=== PATIENT | male | born 1970 | race Caucasian/White ===

== ENCOUNTER 2020-06-11 14:24 | Emergency (ER) | payer OTHER, SELFPAY ==
[2020-06-11 14:36] VITALS: BP 137/80; PULSE 72; RESP 15; TEMP 36.1; O2SAT 97; BMI 31.8
--- NOTE | 2020-06-11 14:37 | US_ITS ---
EXAMINATION: US SCROTUM CLINICAL INFORMATION: Left testicle pain and swelling. Evaluate for torsion.. COMPARISON: Previous scrotal ultrasound July 2014 TECHNIQUE: A sonogram of the scrotum was performed assessing beltrán-scale appearance and color Doppler flow. Spectral Doppler analysis of the arterial and venous flow were performed in the testes bilaterally. FINDINGS: RIGHT: Right testicle measures 5 x 2.3 x 3.1 cm, volume 19 mL. No focal testicular parenchymal lesions are visualized. Spectral Doppler analysis of the arterial and venous flow is normal in the right testis. Right epididymal head is normal in size. No right hydrocele or varicocele is seen. Right epididymal Doppler flow is LEFT: Left testicle measures 3.8 x 2.3 x 2.9 cm, volume 13 mL. Left testicle echotexture is diffusely heterogeneous with multiple small hypoechoic areas. Spectral Doppler analysis of the arterial and venous flow is normal in the left testis. The left epididymis is enlarged and hypervascular. There are some calcifications in the left epididymis. There is a small left hydrocele. There is no left varicocele. There is a small left scrotal calcification. Left epididymal Doppler flow is increased. US/US scrotum doppler IMPRESSION: No evidence of torsion. Small heterogeneous left testicle with multiple hypoechoic areas. The left epididymis is enlarged and hypervascular. Small left hydrocele. Findings are questionable for left epididymoorchitis. Urology consultation and follow-up scrotal ultrasound following antibiotic treatment is recommended. Abnormal appearance of the left testicle is new from July 2014 exam. Normal right scrotal ultrasound.
--- NOTE | 2020-06-11 14:40 | ED.MALEGU ---
HPI - Male Genitourinary General Chief complaint: Urogenital-Male Stated complaint: low abd pain Time Seen by Provider: 06/11/20 14:33 Source: patient Mode of arrival: ambulatory Limitations: no limitations History of Present Illness HPI Narrative: 50-year-old male with a past medical history of hypertension, coronary artery disease, epididymitis here from urgent care with left testicular pain and swelling. The patient tells me last evening he noticed some pain in his left testicle with swelling. There is no injury or trauma. He also tells me that he has had some dysuria and frequency. He has a history of epididymitis and feels that this is similar. He tells me 1 month ago he was treated for UTI but continued to have symptoms even after finishing his antibiotics. No penile discharge. Sexually active. No fevers, chills, nausea, vomiting, diarrhea. MD Complaint: testicle pain, testicle swelling and dysuria Onset (ago): hour(s) Duration: constant Location: left testicle Severity: mild Quality: aching Relieving factors: none Exacerbating factors: none Associated symptoms: Reports swelling and dysuria Related Data Previous Rx's Medication Instructions Recorded levofloxacin 750 mg PO DAILY 7 Days #7 tab 06/11/20 Allergies Allergy/AdvReac Type Severity Reaction Status Date / Time lisinopril [LISINOPRIL] Allergy Severe TONGUE Unverified 03/28/20 17:48 SWELLING hydrochlorothiazide Allergy Unknown Verified 02/05/20 00:00 Review of Systems Review of Systems: Yes all other systems are reviewed and are negative Constitutional: Constitutional: Reports no additional constitutional complaints, Denies body ache(s), Denies chills, Denies fever(s), Denies headache(s) and Denies weakness Eyes: Eyes: Reports no additional eye complaints and Denies change in vision ENT: Reports system reviewed and no additional complaints, except as documented, Denies dizziness, Denies headache(s), Denies nasal congestion, Denies nasal discharge and Denies neck pain Cardiovascular: Cardiovascular: Reports no additional cardiovascular complaints, Denies chest pain, Denies leg edema and Denies dyspnea Respiratory: Respiratory: Reports no additional respiratory complaints, Denies cough and Denies dyspnea Gastrointestinal: Gastrointestinal: Reports no additional gastrointestinal complaints, Denies abdominal pain, Denies diarrhea, Denies nausea and Denies vomiting Genitourinary: Genitourinary: Reports dysuria, Reports testicular pain, Reports urinary frequency and Denies urinary incontinence Musculoskeletal: Musculoskeletal: Reports no additional musculoskeletal complaints, Denies back pain, Denies arthralgias, Denies joint swelling, Denies neck pain, Denies numbness and Denies tingling Integumentary/Breasts: Skin/Breast: Reports system reviewed and no additional complaints, except as docu and Denies rash Neurologic: Reports system reviewed and no additional complaints, except as documented, Denies Abnormal speech present, Denies dizziness, Denies headache(s), Denies numbness, Denies tingling and Denies weakness PMFSH Past Medical History Attestation statement: The following information was validated with the patient. Source: old records reviewed and nursing notes reviewed Medical History HTN (hypertension) Social History Social History Alcohol intake: never Smoking Status: Never smoker Use of substances other than those prescribed or required for medical reasons: No Advance Directives: No Advance Directives Information Provided: No Physical Exam Vital Signs: Vital Signs: Last Vital Signs Temp 97.9 F 06/11/20 16:07 Pulse 71 06/11/20 16:07 Resp 18 06/11/20 16:07 BP 138/90 H 06/11/20 16:07 Pulse Ox 97 06/11/20 14:36 Body Mass Index 31.8 Const: General: cooperative, healthy appearing, comfortable and no acute distress Orientation/consciousness: patient oriented x3 Limitations: no limitations HENMT: Head: Yes normal to inspection Ears: hearing grossly normal bilaterally General nose exam: Normal external nose present Face and sinus: Yes normal facial exam Mouth: Normal oral and palatal mucosa present Throat: Yes posterior oropharynx normal Eyes: General: appearance normal, both eyes and all related structures Pupils: Equal, round and reactive pupils present Neck: Neck: Yes normal visual inspection Chest: Chest palpation & inspection: normal inspection of the chest Resp: Effort & Inspection: normal respiratory effort Auscultation: clear to auscultation bilaterally Cardio: Rate: regular rate Rhythm: regular rhythm Peripheral pulses: Peripheral pulses 2+ throughout GI: Inspection: Yes normal to inspection Palpation (GI): Soft to palpation and nontender Auscultation: normal bowel sounds : Other: deferred by patient Back/Spine/Pelvis: Thoracic/Lumbar Spine: thoracic and lumbar spine normal to inspection Skin: General skin exam: no rashes or lesions noted Neuro: General: patient oriented x3, no focal motor deficits and normal sensation to monofilament Cranial nerves: Yes Equal, round and reactive pupils present Cognition (Neuro): normal cognition Speech: No Abnormal speech present Gait exam (Neuro): Normal gait present Motor exam (neuro): 5/5 motor strength present throughout Extrem: General: Yes normal to inspection Course Course Course Narrative: 50-year-old male here with left testicular pain and swelling and dysuria and urinary frequency. Plan for UA, gonorrhea and chlamydia testing, ultrasound here. 1715- patient refused exam. His ultrasound is consistent with epididymitis and orchitis. There is no evidence of testicular torsion. His UA is consistent with the UTI. GC testing was sent. Patient was treated prophylactically with ceftriaxone IM and azithromycin p.o.. Reviewed follow-up with Urology. Reviewed worrisome signs and symptoms and when to return to the emergency department. Comfortable discharge home. MDM - Male Genitourinary MDM Narrative Medical decision making narrative: epididymitis, testicular torsion, UTI Medical Records Attestation: I reviewed the patient's medical records. Lab Data Attestation: I reviewed the patient's lab results. Labs: Lab Results 06/11/20 Range/Units 15:59 Urine Color YELLOW Urine Appearance CLOUDY Urine pH 6.0 (5.0-8.0) Ur Specific [place] >= 1.030 H (1.005-1.025) Urine Protein NEG (NEG-TRACE) MG/DL Urine Glucose (UA) NEG (NEG) MG/DL Urine Ketones NEG (NEG) MG/DL Urine Blood 1+ H (NEG) Urine Nitrite POS H (NEG) Ur Leukocyte Esterase 2+ H (NEG) Urine RBC 1-4 (0) /HPF Urine WBC TNTC H (0-4) /HPF Ur Squamous Epith Cells TRACE /LPF Urine Bacteria 3+ /LPF Discharge Plan Discharge Clinical Impression: Epididymitis Patient Disposition: Home, Self-Care Instructions: Epididymo-Orchitis (ED) Additional Instructions: Start antibiotics today Elevate the testicles Follow-up with Urology we will call you if your STD testing is positive Prescriptions: New levofloxacin 750 mg tablet 750 mg PO DAILY 7 Days Qty: 7 RF: 0 Referrals: Cb Thayer MD [Physician] - 2 days Interventions: ED Discharge Assessment Last Done: 06/11/20 17:03 Discharge Date/Time: 06/11/20 17:06
[2020-06-11 16:07] VITALS: BP 138/90; PULSE 71; RESP 18; TEMP 36.6
--- NOTE | 2020-06-11 16:10 | PC.NURSE ---
patient a&ox3, urine obtained, vss, pt awaiting results of testing, pt states his pain is a 1/10 as long as he is sitting still, will continue to monitor.
[2020-06-11 16:11] LABS: Glucose Urine UA NEG (NEG); Leukocyte Esterase Urine 2+ (NEG); Nitrite Urine POS (NEG); Specific Gravity - Urine >= 1.030 (1.005-1.025); Urine Blood 1+ (NEG); Urine Ketones NEG (NEG); Urine Protein NEG (NEG-TRACE)
[2020-06-11 16:15] LABS: Appearance Urine CLOUDY; Color Urine YELLOW
[2020-06-11 16:54] LABS: Bacteria Urine 3+ /LPF; Squamous Epithelial Cell Urine TRACE /LPF; WBC Urine TNTC /HPF (0-4)
[2020-06-11] MEDS: cefTRIAXone sodium 250 MG, Lidocaine HCl 1 % MPF 0.9 ML IM (17:01)
[2020-06-11] MEDS: Azithromycin 500 MG TABLET 1000 MG PO (17:01)
[2020-06-17 18:10] LABS: CT PCR NOT DETECTED (Not Detect.); NG PCR NOT DETECTED (Not Detect.)
== END 2020-06-11 17:06 | disposition home or self-care (01) ==
PROVIDERS: Nurse Practitioner Family; Emergency Provider Emergency Medicine; PCP Internal Medicine
DX: N45.1 Epididymitis (principal); I10 Essential (primary) hypertension
CPT/HCPCS: 76870; 81001; 87086; 87088; 87186; 87491; 87591; 93975; 96372; 99284; J0696

== ENCOUNTER → 2020-08-08 09:11 | Outpatient (BNVA) | payer OTHER, SELFPAY | PROVIDERS: PCP Internal Medicine; Visit Provider Urology ==

== ENCOUNTER 2021-02-13 10:25 | Outpatient (REF) | payer OTHER, SELFPAY ==
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
[2021-02-13 11:38] LABS: Glucose Urine UA NEG (NEG); Leukocyte Esterase Urine 2+ (NEG); Nitrite Urine NEG (NEG); PH 5.5 (5.0-8.0); Specific Gravity - Urine 1.025 (1.005-1.025); UACC Culture Trigger YES; Urine Blood TRACE (NEG); Urine Ketones NEG (NEG); Urine Protein NEG (NEG-TRACE)
[2021-02-13 11:58] LABS: Appearance Urine HAZY; Color Urine YELLOW
[2021-02-13 12:36] LABS: Bacteria Urine 2+ /LPF; Squamous Epithelial Cell Urine 1+ /LPF; UACC CULT YES; WBC Urine 50-75 /HPF (0-4)
[2021-02-13 13:27] LABS: Prostate Specific Antigen 1.31 ng/mL (<0.05-4.0)
[2021-02-14 08:10] LABS: SARS COV2 IgG Negative (Negative)
== END 2021-02-13 10:26 | disposition home or self-care (01) ==
LOC: HO.LAB 10:25
PROVIDERS: PCP Internal Medicine; Visit Provider Internal Medicine
DX: M19.041 Primary osteoarthritis, right hand (principal); M19.042 Primary osteoarthritis, left hand
CPT/HCPCS: 36415; 73130; 81001; 84153; 86769; 87086; 87088; 87186

== ENCOUNTER → 2021-03-21 15:10 | Outpatient (BNVA) | payer OTHER, SELFPAY | PROVIDERS: PCP Internal Medicine; Visit Provider Urology ==

== ENCOUNTER 2022-03-26 15:13 | Outpatient (REF) | payer OTHER, SELFPAY ==
--- NOTE | ~2022-03-26 | XR_ITS ---
EXAMINATION: XR KNEE, RIGHT CLINICAL INFORMATION: Pain. COMPARISON: None TECHNIQUE: AP, lateral, tunnel, and sunrise views of the right knee. FINDINGS: Bony alignment and mineralization are normal. There is mild to moderate asymmetric narrowing of the medial joint space compartment, with peripheral osteophyte formation. The lateral joint space compartment is well-maintained. The patellofemoral compartment is well-maintained and shows minimal peripheral osteophyte formation. No fracture or dislocation is seen. There is no significant joint effusion. No foreign body is noted. XR/XR knee RT 4V IMPRESSION: 1. There is tricompartment osteoarthritic change of the right knee, most pronounced of the medial joint space compartment, where it is mild to moderate. 2. No fracture, dislocation or significant joint effusion is seen. EXAMINATION: XR KNEE, LEFT CLINICAL INFORMATION: Pain. COMPARISON: None TECHNIQUE: AP, lateral, tunnel, and sunrise views of the left knee. FINDINGS: Bony alignment and mineralization are normal. There is mild asymmetric narrowing of the medial joint space compartment, with peripheral osteophyte formation. The lateral and patellofemoral joint space compartments are well-maintained. No fracture, dislocation or significant joint effusion is seen. There is no foreign body. There are femoropopliteal atherosclerotic calcifications. IMPRESSION: 1. There is mild osteoarthritic change of the medial joint space compartment of the left knee. 2. No fracture, dislocation or significant joint effusion is seen.
--- NOTE | ~2022-03-26 | XR_ITS ---
EXAMINATION: XR KNEE, RIGHT CLINICAL INFORMATION: Pain. COMPARISON: None TECHNIQUE: AP, lateral, tunnel, and sunrise views of the right knee. FINDINGS: Bony alignment and mineralization are normal. There is mild to moderate asymmetric narrowing of the medial joint space compartment, with peripheral osteophyte formation. The lateral joint space compartment is well-maintained. The patellofemoral compartment is well-maintained and shows minimal peripheral osteophyte formation. No fracture or dislocation is seen. There is no significant joint effusion. No foreign body is noted. XR/XR knee LT 4V IMPRESSION: 1. There is tricompartment osteoarthritic change of the right knee, most pronounced of the medial joint space compartment, where it is mild to moderate. 2. No fracture, dislocation or significant joint effusion is seen. EXAMINATION: XR KNEE, LEFT CLINICAL INFORMATION: Pain. COMPARISON: None TECHNIQUE: AP, lateral, tunnel, and sunrise views of the left knee. FINDINGS: Bony alignment and mineralization are normal. There is mild asymmetric narrowing of the medial joint space compartment, with peripheral osteophyte formation. The lateral and patellofemoral joint space compartments are well-maintained. No fracture, dislocation or significant joint effusion is seen. There is no foreign body. There are femoropopliteal atherosclerotic calcifications. IMPRESSION: 1. There is mild osteoarthritic change of the medial joint space compartment of the left knee. 2. No fracture, dislocation or significant joint effusion is seen.
[2022-03-26 16:08] LABS: Hematocrit 48.2 % (42.0-52.0); Mean Corpuscular HGB Conc 33.2 g/dl (31.0-36.0); Mean Corpuscular Hemoglobin 31.7 pg (27.0-33.0); Mean Corpuscular Volume 95.4 fL (80.0-98.0); Mean Platelet Volume 10.7 fL (9.4-12.4); Platelet Count 213 X10*3/uL (160-400); Red Blood Count 5.05 X10*6/uL (4.60-5.80); Red Cell Distribution Width 12.5 % (11.0-16.0); White Blood Count 8.4 X10*3/uL (4.8-10.8)
[2022-03-26 16:21] LABS: Magnesium 1.9 mg/dL (1.6-2.6)
[2022-03-26 16:44] LABS: Thyroid Stimulating Hormone 1.32 uIU/mL (0.32-4.0); Vitamin D 25-OH Total 37.7 ng/mL (>30)
[2022-03-26 16:48] LABS: Vitamin B12 568 pg/mL (200-900)
== END 2022-03-26 15:14 | disposition home or self-care (01) ==
LOC: HO.XRAY 15:13
PROVIDERS: PCP Internal Medicine; Visit Provider Internal Medicine
DX: R06.02 Shortness of breath (principal); R53.83 Other fatigue; M25.561 Pain in right knee; M25.562 Pain in left knee
CPT/HCPCS: 36415; 73564; 82306; 82607; 83735; 84443; 85027

== ENCOUNTER 2022-05-15 15:58 | Outpatient (REF) | payer OTHER, SELFPAY ==
--- NOTE | 2022-05-15 | PFT_ITS ---
INDICATION: Shortness of breath. SPIROMETRY: The FEV1 to FVC of 70% with an FEV1 of 3.67 L, which is 82% predicted and FVC of 5.13 L, which is 90% predicted. No significant response to bronchodilators noted. Maximum voluntary ventilation 77% predicted. LUNG VOLUMES: Total lung capacity 97% predicted with an expiratory reserve volume of 15% predicted. DIFFUSION CAPACITY: DLCO 107% predicted. COMPARISONS: None. INTERPRETATION: There is an obstructive ventilatory defect consistent with mild COPD. No significant response to bronchodilators noted. The patient does have a mild decrease in maximum voluntary ventilation secondary to likely deconditioning. Lung volumes with a trend of air trapping and a significant decrease in the expiratory reserve volume secondary to an elevated BMI. Diffusion capacity is within normal limits. Clinical correlation warranted. Alfredo Pradhan MD MR/MODL / [id number]
== END 2022-05-15 15:59 | disposition home or self-care (01) ==
LOC: HO.RESP 15:58
PROVIDERS: PCP Internal Medicine; Visit Provider Internal Medicine
DX: R06.02 Shortness of breath (principal)
CPT/HCPCS: 94060; 94727; 94729

== ENCOUNTER 2022-09-18 14:47 | Outpatient (REF) | payer OTHER, SELFPAY ==
--- NOTE | ~2022-09-18 | CT_ITS ---
EXAMINATION: CT CHEST SCREENING CLINICAL INFORMATION: Personal history of nicotine dependence. COMPARISON: None available. TECHNIQUE: Multidetector volumetric CT imaging of the chest is performed without contrast using low dose technique. Additional 2D coronal and sagittal reformatted images and axial 3D maximum intensity projection (MIP) images are generated on the CT workstation. This CT examination was performed using dose optimization techniques as appropriate, variously including the following: *Automated exposure control *Adjustment of mA and/or kV according to patient size (this includes techniques or standardized protocols for targeted exams where dose is matched to indication/reason for exam; i.e. extremities or head) *Use of iterative reconstruction technique DLP: 83 mGy-cm FINDINGS: LUNGS: The lungs are well expanded and clear of acute pneumonic process. There is a 4 mm nodule in the right upper lobe (axial image 178/6), 2 mm nodule left upper lobe laterally (image 204/6), 3 mm nodule in the right middle lobe adjacent to major the fissure (image 179/6), 5 mm nodule in the right middle lobe (axial image 35/4), 3 mm pleural-based nodule in the right lower lobe (axial image 360/6). MEDIASTINUM: The thyroid lobes are symmetric and normal. The central trachea and the bronchi are widely patent. Heart size and the great vessels are normal caliber. No pericardial effusion is seen. CORONARY ARTERY CALCIFICATION: Mild coronary artery calcifications are present. PLEURA: There is no pleural effusion. No pleural mass or thickening. AXILLA: There are small shotty lymph nodes in the axilla. The chest wall is unremarkable. UPPER ABDOMEN: Visualized liver, spleen, pancreas and bilateral adrenal glands are unremarkable. OSSEOUS STRUCTURES: No aggressive lytic or sclerotic process is seen. There is mild spondylosis throughout the dorsal spine. CT/CT lung screening IMPRESSION: 1. Multiple bilateral pulmonary nodules. 2. Low-dose annual CT chest. ASSESSMENT: Lung-RADS category 2: Benign RECOMMENDATION: Low-dose annual CT chest.
== END 2022-09-18 14:48 | disposition home or self-care (01) ==
LOC: HO.CT 14:47
PROVIDERS: PCP Internal Medicine; Visit Provider Physician Assistant Medical
DX: Z12.2 Encounter for screening for malignant neoplasm of respiratory organs (principal); Z87.891 Personal history of nicotine dependence
CPT/HCPCS: 71271; G0296

== ENCOUNTER 2023-03-30 15:32 | Outpatient (AMB) | payer OTHER, SELFPAY ==
--- NOTE | 2023-03-30 15:43 | MHC.OFFVIS ---
Intake Intake Visit Reasons: ED- yearly follow up Intake Note: Patient is present for Follow Up Urology Med: tadalafil Antibiotic Allergy: None Blood Thinner: Aspirin Pharmacy: [facility] Allergies hydrochlorothiazide Allergy (Severe, Verified 03/05/23 09:33) TONGUE SWELLING lisinopril [LISINOPRIL] Allergy (Severe, Verified 05/22/22 16:09) TONGUE SWELLING Medication List - Last Reconciled 03/30/23 by Cb Thayer MD amlodipine 5 mg PO .DAILY@NOON aspirin 81 mg PO DAILY atorvastatin 80 mg PO BEDTIME clopidogrel 75 mg PO DAILY gabapentin 300 mg PO BEDTIME imipramine HCl 50 mg PO BEDTIME 30 days isosorbide mononitrate ER 60 mg PO BID losartan 100 mg PO DAILY meloxicam 15 mg PO Q OTHER DAY metoprolol tartrate 50 mg PO BID peg 3350-electrolytes [id number] -5.86 gram (Golytely) 240 mL PO Q10M 1 day tadalafil 20 mg PO DAILY PRN 30 days tadalafil 5 mg PO DAILY 90 days terbinafine HCl 250 mg PO DAILY HPI HPI Comments History of Present Illness Details Sascha is a pleasant male. He is a patient of Dr. Schmidt. He is seen for the following urologic conditions - erectile dysfunction - scrotal itch Has combination medications from quill collector regarding scrotal itch On exam has dry tissue posterior Discussed moisturizer Continue with PD 5s for erectile issues Discussed trial of Aveeno eczema products Erectile dysfunction Able to attain but cannot maintain erection without oral medications Tadalafil is effective 20 mg PSA - 03/01 1.3 Associated hypertension and dyslipidemia Prior history of UTI and genital herpes Continue with yearly evaluation Scrotal itch Diflucan 2 doses Imipramine 50 mg for 1 month to allow healing [facility] Medical History (Updated 04/02/23 @ 21:32 by Cb Thayer MD) ROSS (obstructive sleep apnea) Personal history of nicotine dependence Coronary artery disease Erectile dysfunction BPH (benign prostatic hyperplasia) HTN (hypertension) Surgical History (Updated 03/05/23 @ 09:38 by Karoline Baltazar RN) Hx of heart artery stent History of left inguinal hernia repair History of ventral hernia repair History of cardiac cath History of appendectomy Family History Maternal Grandmother Intestinal cancer Sinus malignant neoplasm Maternal Grandfather Cancer Social History (Updated 03/05/23 @ 09:37 by Karoline Baltazar RN) Are you a primary eye care professional to a significant other at home: Yes (son, will have post-op assistance) Do you presently have visiting nurse or other home services: No Alcohol intake: current Alcohol intake frequency: holidays/special occasions only Patient Tobacco Use Status: Former Tobacco user Quit Date: 2017 Tobacco use type: Cigarette Years Smoked: (onset 12yo, 1ppd x 35yrs, 35pyh, quit 2018) Review of Systems Const Denies chills and Denies fever(s) Card Reports no additional complaints and Denies syncope Resp Denies cough GI Denies abdominal pain and Denies heartburn Reports as per HPI and Denies change in libido Neuro Denies syncope Psych Denies change in libido Endo Denies change in libido Physical Exam Const General: cooperative, healthy appearing, comfortable and no acute distress Orientation/consciousness: patient oriented x3 HEENT Face and sinus: Yes normal facial exam Mouth: moist mucous membranes Neck Neck: Yes normal visual inspection, Yes full ROM and Yes trachea midline Chest Chest palpation & inspection: normal inspection of the chest Resp Effort & Inspection: normal respiratory effort, able to speak in complete sentences and no respiratory distress GI Inspection: Yes normal to inspection Back/Spine/Pelvis Cervical Spine: normal cervical lordosis Thoracic/Lumbar Spine: thoracic and lumbar spine normal to inspection Skin General skin exam: no rashes or lesions noted Neuro General: patient oriented x3, gait normal, tone normal and moves all extremities Extrem General: Yes normal to inspection and Yes capillary refill normal Assessment & Plan Assessment & Plan (1) Scrotal irritation: Code(s): N50.89 - Other specified disorders of the male genital organs (2) Erectile dysfunction: Code(s): N52.9 - Male erectile dysfunction, unspecified Qualifiers: Erectile dysfunction type: vasculogenic Vasculogenic erectile dysfunction type: due to arterial insufficiency Qualified Code(s): N52.01 - Erectile dysfunction due to arterial insufficiency Plan 6 month follow-up Medications: New tadalafil 5 mg PO DAILY 90 tabs 1RF sexual activity 90 days N52.9 - Male erectile dysfunction, unspecified Patient Instructions: Imaging studies, laboratory and physical exam results were discussed and reviewed in detail. No major barriers to patient understanding were identified. An opportunity to ask questions regarding the treatment plan was provided. All questions were answered. The patient expressed understanding and agreement with the above treatment plan. The patient is aware they should contact our office by phone for worsening of their current condition or the appearance of new urologic symptoms. Compliance is encouraged with any medications and followup testing that is ordered. It is a privilege to participate in the urologic care of your patient. If you have any questions or concerns regarding treatment for the above conditions, or other urologic issues, please do not hesitate to contact me. The office telephone contact is [phone]. This note is constructed using voice recognition software. While every effort has been made to ensure accuracy senior medical transcriptionist errors may have been included. Yours sincerely, Dr Cb Thayer MD, [facility] - Urology Providers of Expert, Compassionate Care for the Genitourinary System Coding Level of Care Code Est Pt Level 4 (55287) Diagnoses Scrotal irritation N50.89 Erectile dysfunction due to arterial insufficiency N52.01 Erectile dysfunction type: vasculogenic Vasculogenic erectile dysfunction type: due to arterial insufficiency
== END 2023-03-30 16:06 | disposition home or self-care (01) ==
PROVIDERS: PCP Internal Medicine; Visit Provider Urology
DX: N50.89 Other specified disorders of the male genital organs (principal); N52.01 Erectile dysfunction due to arterial insufficiency
CPT/HCPCS: 99214

== ENCOUNTER → 2023-03-30 15:32 | Outpatient (BNVA) | payer OTHER, SELFPAY | PROVIDERS: Visit Provider Urology ==

== ENCOUNTER 2023-05-10 13:47 | Day surgery (SDC) | payer OTHER, SELFPAY ==
[2023-03-04 15:02] VITALS: BMI 37.0
[2023-03-05 09:35] VITALS: BMI 35.9
[2023-05-10 14:43] VITALS: BP 143/90; PULSE 98; RESP 18; TEMP 37.1; O2SAT 95
[2023-05-10] MEDS: Lactated Ringers 1,000 ML 100 ML IVCONT (14:50)
--- NOTE | 2023-05-10 15:34 | MHC.SHP ---
Pre-Procedural Eval Section A Date of Service: 05/10/23 The patient is an INPATIENT: No The History & Physical has been completed within 30 days and I have reviewed it.: No Section B Chief Complaint: screening Relevant Family History (Specify if Yes): Yes Relevant Social History: Tobacco Use (former smoker) Present Medications: see Short Stay Collaborative assessment Medical History: Significant History (BPH (benign prostatic hyperplasia) Erectile dysfunction HTN (hypertension)) History of Previous Operations: Relevant previous surgery/procedure and date(s) (H/O left inguinal hernia repair H/O ventral hernia repair History of appendectomy) Allergies: Allergies Allergy/AdvReac Type Severity Reaction Status Date / Time hydrochlorothiazide Allergy Severe TONGUE Verified 03/05/23 09:33 SWELLING lisinopril [LISINOPRIL] Allergy Severe TONGUE Verified 05/22/22 16:09 SWELLING Review of Systems Sugical H&P ROS: Negative: Constitution, Cardiovascular, Respiratory and Gastrointestinal Exam Surgical H&P Exam: Normal: Heart, Normal: Lungs, Normal: Extremities and Normal: Abdomen Plan Diagnosis/Plan: Unchanged I have reviewed the history and physical and performed a pertinent physical examination on my patient. No changes have occurred unless specified. Time Spent With Patient Time: Total time managing care of this patient today ____ minutes.
--- NOTE | 2023-05-10 15:36 | P.CONAN_ITS ---
[facility] Active Problems Active Problems: All Active Problems (Updated 04/02/23 @ 21:32 by Cb Thayer MD) Family history of polyps in the colon (Acute) Angina pectoris (Acute) Fatigue (Acute) Knee pain (Acute) Degenerative disc disease, cervical (Acute) High cholesterol (Acute) Morbid obesity (Acute) Scrotal irritation (Acute) Personal history of nicotine dependence (Acute) Coronary artery disease (Acute) HTN (hypertension) (Acute) Erectile dysfunction (Acute) Past Medical History Medical History ROSS (obstructive sleep apnea) Personal history of nicotine dependence Coronary artery disease Erectile dysfunction BPH (benign prostatic hyperplasia) HTN (hypertension) Family History Family History Maternal Grandmother Intestinal cancer Sinus malignant neoplasm Maternal Grandfather Cancer Surgical History Surgical History Hx of heart artery stent History of left inguinal hernia repair History of ventral hernia repair History of cardiac cath History of appendectomy History of Problems with Anesthesia: No Social History Social History Are you a primary client care consultant to a significant other at home: Yes (son, will renteria ve post-op assistance) Do you presently have visiting nurse or other home services: No Alcohol intake: current Alcohol intake frequency: holidays/special occasions only Patient Tobacco Use Status: Former Tobacco user Quit Date: 2017 Tobacco use type: Cigarette Years Smoked: (onset 12yo, 1ppd x 35yrs, 35pyh, quit 2017) Use of substances other than those prescribed or required for medical reasons: No Have you been hit, kicked, punched, or otherwise hurt by someone within the past year? If so, by whom?: No Are you DNR?: No Advance Directives: No Advance Directives Information Provided: Yes Advance Directives on File: No Recently lost weight without trying: No Eating poorly because of decreased appetite: No Nutrition Risks: No Nutritional Risk Poor oral hygiene: No Meds Allergies Allergy/AdvReac Type Severity Reaction Status Date / Time hydrochlorothiazide Allergy Severe TONGUE Verified 03/05/23 09:33 SWELLING lisinopril [LISINOPRIL] Allergy Severe TONGUE Verified 05/22/22 16:09 SWELLING Active Medications: Current Medications Lactated Ringer's (Lr) 1,000 mls @ 100 mls/hr IVCONT .Q10H LEEANN Last Admin: 05/10/23 14:50 Dose: 100 mls/hr Home Medications Medication Instructions Recorded Confirmed Last Taken Type atorvastatin 80 mg tablet 80 mg PO BEDTIME 08/08/20 03/30/23 Unknown History isosorbide mononitrate 60 mg 60 mg PO BID 08/08/20 03/30/23 Unknown History tablet,extended release 24 hr metoprolol tartrate 50 mg tablet 50 mg PO BID 08/08/20 03/30/23 Unknown History amlodipine 5 mg tablet 5 mg PO .DAILY@NOON 03/21/21 03/30/23 Unknown History losartan 100 mg tablet 100 mg PO DAILY 03/26/22 03/30/23 Unknown History aspirin 81 mg capsule 81 mg PO DAILY 05/22/22 03/30/23 Unknown History meloxicam 15 mg tablet 15 mg PO Q OTHER DAY 05/22/22 03/30/23 Unknown History terbinafine HCl 250 mg tablet 250 mg PO DAILY 05/22/22 03/30/23 Unknown History clopidogrel 75 mg tablet 75 mg PO DAILY 03/04/23 03/30/23 Unknown History gabapentin 300 mg capsule 300 mg PO BEDTIME 03/05/23 03/30/23 Unknown History Exam Exam Date and Time: May 10, 2023 1536 Height,Weight and Vital Signs: Height 6 ft 2 in Weight 127.006 kg Last Vital Signs Temp 98.8 F 05/10/23 14:43 Pulse 98 05/10/23 14:43 Resp 18 05/10/23 14:43 BP 143/90 H 05/10/23 14:43 Pulse Ox 95 05/10/23 14:43 O2 Del Method Room Air 05/10/23 14:43 Airway Mallampati Class: III TM Dist: >3cm Neck ROM: Full Loose/Missing/Broken Teeth: No Heart: RRR Lungs: CTA Assessment and Plan Assessment Anesthesia Assessment: Anesthesia Plan Discussed Final Anesthetic Review History of Problems with Anesthesia: No NPO: Yes ASA Class: III Final Preanesthetic Review: Meds/Allgs Chart Reviewed, Consent Obtained/Reviewed and Anes Risks/Benef Reviewed Patient Risk: Intermediate Procedure Risk: Low Anesthetic Plan Anesthetic Plan: MAC: Disposition: Standard PACU
--- NOTE | 2023-05-10 16:18 | P.OP_ITS ---
Operative Note Operative Note Date of Service: 05/10/23 Narrative: COLONOSCOPY TILL CECUM WITH SNARE POLYPECTOMY, SUBMUCOSAL INJECTION AND HEMOCLIP PLACEMENT Pre-op diagnosis: Colon cancer screening (1st colonoscopy), FH of colon polyps (Mom) Post-op diagnosis:?Colon polyp, diverticulosis, hemorrhoids Endoscopist:? Tameka Shepard MD Anesthesia:?MAC Consent: Indications for the procedure and potential complications of bleeding, perforation, reaction to medications and missed diagnosis were discussed with the patient and informed consent was obtained. Instrument: Olympus CF H 190 L variable stiffness adult colonoscope Monitoring: Vital signs and clinical assessment, intermittent blood pressure monitoring, continuous EKG monitoring, Pulse oximetry and Carbon Dioxide monitoring were done throughout the procedure. Please see anesthesia flowsheet. Colon withdrawl time was 17 minutes. Procedure: The patient was placed in the left lateral decubitis position and pre-procedure medications were administered. After a digital rectal examination of the ano-rectum, the video colonoscope was inserted into the rectum and advanced through the colon to the cecum. The colonoscope was slowly withdrawn in a retrograde panoramic fashion and the colon mucosa was carefully examined including a retroflexed view of the rectum. Findings and interventions are described below. Procedure Difficulty: Without difficulty Findings: Terminal Ileum: Not evaluated Cecum: Normal Ascending Colon: A 15 x 15 mm flat polyp in the distal AC at 100 cms. Polyp was raised with 3 cc of Eleview and removed with a hot stiff snare. Polypectomy site was closed with 2 hemoclips and marked by caryn ink Transverse Colon: Normal Descending Colon: Moderate diverticulosis Sigmoid Colon: Moderate diverticulosis Rectum: Normal Ano-rectum: Moderate internal hemorrhoids Colon preparation: Good Impression and Post Procedure Diagnosis: Colonoscopy Findings: One medium sized polyp removed Moderate diverticulosis seen in the left colon Moderate hemorrhoids on retroflexed exam. Plan: I will send a letter with pathology results Repeat Colonoscopy interval based on path results - in 3 years if polyp is adenomatous and 10 years if polyps are hyperplastic. Above findings were reviewed with the patient and colon polyps and divert iculosis handouts were given in the discharge area. Pt advised to resume Plavix on 05/15/23.
[2023-05-10 17:00] VITALS: BP 121/72; PULSE 58; RESP 18; TEMP 36.6; O2SAT 98
[2023-05-10 17:15] VITALS: BP 139/83; PULSE 58; RESP 18; TEMP 36.5; O2SAT 96
== END 2023-05-10 17:30 | disposition home or self-care (01) ==
PROVIDERS: PCP Internal Medicine; Visit Provider Internal Medicine Gastroenterology
PROC: 0DJD8ZZ Inspection of Lower Intestinal Tract, Via Natural or Artificial Opening Endoscopic (ICD-10-PCS; CPT 45378; principal; 2023-05-10 15:30)
DX: Z12.11 Encounter for screening for malignant neoplasm of colon (principal); K63.5 Polyp of colon; K57.30 Diverticulosis of large intestine without perforation or abscess without bleeding; K64.8 Other hemorrhoids; Z83.719 Family history of colon polyps, unspecified; I10 Essential (primary) hypertension; E78.00 Pure hypercholesterolemia, unspecified; E66.01 Morbid (severe) obesity due to excess calories; Z68.37 Body mass index [BMI] 37.0-37.9, adult; Z87.891 Personal history of nicotine dependence
CPT/HCPCS: 45385; 45381; 88305

== ENCOUNTER → 2023-05-10 13:47 | Outpatient (BNV) | payer OTHER, SELFPAY | PROVIDERS: PCP Internal Medicine; Visit Provider Internal Medicine Gastroenterology | DX: Z12.11 Encounter for screening for malignant neoplasm of colon (principal); Z83.71 Family history of colonic polyps; K57.30 Diverticulosis of large intestine without perforation or abscess without bleeding; K64.8 Other hemorrhoids; D12.2 Benign neoplasm of ascending colon | CPT/HCPCS: 45381; 45385 ==

== ENCOUNTER 2023-11-09 15:24 | Outpatient (REF) | payer OTHER, SELFPAY ==
[2023-11-09 17:47] LABS: Appearance Urine Cloudy; Color Urine Dark Yellow; Glucose Urine UA Negative (Negative); Leukocyte Esterase Urine Moderate (2+) (Negative); Nitrite Urine Negative (Negative); Specific Gravity - Urine >= 1.030 (1.005-1.025); UMIC TRIGGER UA YES; Urine Blood Large (3+) (Negative); Urine Ketones Trace mg/dL (Negative); Urine Protein Trace mg/dL (Neg-Trace)
[2023-11-09 18:12] LABS: Anion Gap 16 (12-20); Blood Urea Nitrogen 26 mg/dL (9-16); Calcium 10.1 mg/dL (8.4-10.2); Carbon Dioxide 30 mmol/L (22-29); Chloride 100 mmol/L (96-108); Estimated Glomerular Filt Rate > 60; Glucose Random 64 mg/dL (60-115); Potassium 3.7 mmol/L (3.3-5.1); Sodium 142 mmol/L (135-145)
[2023-11-09 18:50] LABS: Bacteria Urine None Seen (None Seen); Hyaline Casts Urine 0-2 /LPF (0-2); Squamous Epithelial Cell Urine 0-2 /HPF (0-2); WBC Urine 21-50 /HPF (0-5)
== END 2023-11-09 15:25 | disposition home or self-care (01) ==
LOC: HO.LAB 15:24
PROVIDERS: PCP Internal Medicine; Visit Provider Internal Medicine
DX: L29.1 Pruritus scroti (principal); I10 Essential (primary) hypertension
CPT/HCPCS: 36415; 80048; 81001

== ENCOUNTER 2023-11-19 15:28 | Outpatient (AMB) | payer OTHER, SELFPAY ==
--- NOTE | 2023-11-19 15:52 | MHC.OFFVIS ---
Intake Visit Reasons: 6 month (no labs) Intake Note: Patient is Present for Follow Up Urology Medication: Tadalafil, Antibiotic Allergies: none Blood Thinners: Aspirin, Clopidogrel Allergies hydrochlorothiazide Allergy (Severe, Verified 11/19/23 15:55) TONGUE SWELLING lisinopril [LISINOPRIL] Allergy (Severe, Verified 11/19/23 15:55) TONGUE SWELLING Medication List - Last Reconciled 11/19/23 by Cb Thayer MD amlodipine 5 mg PO .DAILY@NOON aspirin 81 mg PO DAILY atorvastatin 80 mg PO BEDTIME clopidogrel 75 mg PO DAILY gabapentin 300 mg PO BEDTIME imipramine HCl 50 mg PO BEDTIME 30 days isosorbide mononitrate ER 60 mg PO BID losartan 100 mg PO DAILY meloxicam 15 mg PO Q OTHER DAY metoprolol tartrate 50 mg PO BID tadalafil 20 mg PO DAILY PRN 30 days tadalafil 5 mg PO DAILY 90 days terbinafine HCl 250 mg PO DAILY HPI Comments Details: Sascha is a pleasant male. He is a patient of Dr. Schmidt. He is seen for the following urologic conditions - erectile dysfunction - scrotal itch We prescription for daily tadalafil in on demand Has been successful Scrotal itch improved significantly On exam has dry tissue posterior Discussed moisturizer Continue with PD 5s for erectile issues Discussed trial of Aveeno eczema products Erectile dysfunction Able to attain but cannot maintain erection without oral medications Tadalafil 5 mg daily with 20 on demand successful PSA - 03/01 1.3 Associated hypertension and dyslipidemia Prior history of UTI and genital herpes Continue with yearly evaluation Scrotal itch Diflucan 2 doses Imipramine 50 mg for 1 month to allow healing PFS Medical History ROSS (obstructive sleep apnea) Personal history of nicotine dependence Coronary artery disease Erectile dysfunction BPH (benign prostatic hyperplasia) HTN (hypertension) Surgical History Hx of heart artery stent History of left inguinal hernia repair History of ventral hernia repair History of cardiac cath History of appendectomy Family History Maternal Grandmother Intestinal cancer Sinus malignant neoplasm Maternal Grandfather Cancer Social History Are you a primary home care and home health aides teacher to a significant other at home: Yes (son, will have post-op assistance) Do you presently have visiting nurse or other home services: No Alcohol intake: current Alcohol intake frequency: holidays/special occasions only Patient Tobacco Use Status: Former Tobacco user Quit Date: 2017 Tobacco use type: Cigarette Years Smoked: (onset 12yo, 1ppd x 35yrs, 35pyh, quit 2018) Review of Systems Const Denies chills and Denies fever(s) Card Reports no additional complaints and Denies syncope Resp Denies cough GI Denies abdominal pain and Denies heartburn Reports as per HPI and Denies change in libido Neuro Denies syncope Psych Denies change in libido Endo Denies change in libido Physical Exam Const General: cooperative, healthy appearing, comfortable and no acute distress Orientation/consciousness: patient oriented x3 HEENT Face and sinus: Yes normal facial exam Mouth: moist mucous membranes Neck Neck: Yes normal visual inspection, Yes full ROM and Yes trachea midline Chest Chest palpation & inspection: normal inspection of the chest Resp Effort & Inspection: normal respiratory effort, able to speak in complete sentences and no respiratory distress GI Inspection: Yes normal to inspection Back/Spine/Pelvis Cervical Spine: normal cervical lordosis Thoracic/Lumbar Spine: thoracic and lumbar spine normal to inspection Skin General skin exam: no rashes or lesions noted Neuro General: patient oriented x3, gait normal, tone normal and moves all extremities Extrem General: Yes normal to inspection and Yes capillary refill normal Assessment & Plan Assessment & Plan (1) Erectile dysfunction: Code(s): N52.9 - Male erectile dysfunction, unspecified Category: Medical Qualifiers: Erectile dysfunction type: vasculogenic Vasculogenic erectile dysfunction type: due to arterial insufficiency Qualified Code(s): N52.01 - Erectile dysfunction due to arterial insufficiency Plan Continue tadalafil Medications: Refilled tadalafil 20 mg PO DAILY 30 days PRN 30 tabs 1RF sexual activity N52.9 - Male erectile dysfunction, unspecified tadalafil 5 mg PO DAILY 90 days 90 tabs 1RF sexual activity N52.9 - Male erectile dysfunction, unspecified Patient Instructions: Imaging studies, laboratory and physical exam results were discussed and reviewed in detail. No major barriers to patient understanding were identified. An opportunity to ask questions regarding the treatment plan was provided. All questions were answered. The patient expressed understanding and agreement with the above treatment plan. The patient is aware they should contact our office by phone for worsening of their current condition or the appearance of new urologic symptoms. Compliance is encouraged with any medications and followup testing that is ordered. It is a privilege to participate in the urologic care of your patient. If you have any questions or concerns regarding treatment for the above conditions, or other urologic issues, please do not hesitate to contact me. The office telephone contact is [phone]. This note is constructed using voice recognition software. While every effort has been made to ensure accuracy whiskey regauger errors may have been included. Yours sincerely, Dr Cb Thayer MD, [facility] - Urology Providers of Expert, Compassionate Care for the Genitourinary System Coding Level of Care Code Est Pt Level 3 (10464) Diagnoses Erectile dysfunction due to arterial insufficiency N52.01 Erectile dysfunction type: vasculogenic Vasculogenic erectile dysfunction type: due to arterial insufficiency
== END 2023-11-19 16:20 | disposition home or self-care (01) ==
PROVIDERS: PCP Internal Medicine; Visit Provider Urology
DX: N52.01 Erectile dysfunction due to arterial insufficiency (principal)
CPT/HCPCS: 99213

== ENCOUNTER → 2023-11-19 15:28 | Outpatient (BNVA) | payer OTHER, SELFPAY | PROVIDERS: PCP Internal Medicine; Visit Provider Urology ==

== ENCOUNTER 2023-11-25 08:33 | Outpatient (REF) | payer OTHER, SELFPAY ==
[2023-11-25 14:51] LABS: Appearance Urine Clear; Color Urine Yellow; Glucose Urine UA Negative (Negative); Leukocyte Esterase Urine Negative (Negative); Nitrite Urine Negative (Negative); PH 5.5 (5.0-9.0); Urine Blood Negative (Negative); Urine Ketones Negative (Negative); Urine Protein Negative (Neg-Trace)
[2023-11-25 14:56] LABS: Bacteria Urine None Seen (None Seen); Hyaline Casts Urine 0-2 /LPF (0-2); RBC Urine 0-2 /HPF (0-2); Squamous Epithelial Cell Urine 0-2 /HPF (0-2); WBC Urine 0-5 /HPF (0-5)
[2023-11-25 15:01] LABS: Anion Gap 18 (12-20); Blood Urea Nitrogen 17 mg/dL (9-16); Calcium 9.4 mg/dL (8.4-10.2); Carbon Dioxide 25 mmol/L (22-29); Chloride 105 mmol/L (96-108); Estimated Glomerular Filt Rate > 60; Glucose Random 90 mg/dL (60-115); Potassium 3.9 mmol/L (3.3-5.1); Sodium 144 mmol/L (135-145)
== END 2023-11-25 08:34 | disposition home or self-care (01) ==
LOC: HO.CHCLDS 08:33
PROVIDERS: Visit Provider Internal Medicine
DX: I10 Essential (primary) hypertension (principal); R31.29 Other microscopic hematuria
CPT/HCPCS: 36415; 80048; 81001

== ENCOUNTER 2024-01-03 08:16 | Outpatient (REF) | payer OTHER, SELFPAY ==
--- NOTE | ~2024-01-03 | CT_ITS ---
EXAMINATION: CT LUNG SCREENING CLINICAL INFORMATION: Personal history of nicotine dependence. The patient has a 35 pack-year history of smoking, having quit 7 years ago. COMPARISON: CT chest 09/18/2022 and x-ray chest 01/20/2012. TECHNIQUE: Multidetector volumetric CT imaging of the chest is performed on a Siemens SOMATOM Definition scanner without contrast using low dose technique. Additional 2D coronal and sagittal reformatted images and axial 3D maximum intensity projection (MIP) images are generated on the CT workstation. This CT examination was performed using dose optimization techniques as appropriate, variously including the following: *Automated exposure control *Adjustment of mA and/or kV according to patient size (this includes techniques or standardized protocols for targeted exams where dose is matched to indication/reason for exam; i.e. extremities or head) *Use of iterative reconstruction technique TOTAL EXAM DLP: 86 mGy-cm. CTDIvol: 2.73 mGy. FINDINGS: PULMONARY NODULES: A number of stable pulmonary nodules are present, with the largest measuring 7 mm in the right middle lobe (5:280 compare prior 6:294). No new, increasing-sized or suspicious nodules are seen. The next largest nodule is 4 mm subpleural in the right lower lobe (5:333 compare prior 6:358). All other lung nodules are smaller. The narvaez images of all have been saved. LUNGS: Lungs bilaterally symmetrically expanded. Mild emphysematous changes are seen along with bronchial thickening. No effusion or pneumothorax. Central airways patent. MEDIASTINUM: No mediastinal, hilar or axillary adenopathy or free fluid collection. CORONARY ARTERY CALCIFICATION: Moderate. THYROID GLAND: Unremarkable to the extent seen. CARDIOVASCULAR STRUCTURES: Aortic and heart size normal. No pericardial effusion. CHEST WALL/AXILLA: Unremarkable. UPPER ABDOMEN: Included portions of the solid organs in the upper abdomen unremarkable on noncontrast imaging aside from mild hepatic steatosis. OSSEOUS STRUCTURES: No suspicious focal findings. CT/CT lung screening IMPRESSION: 1. Stable pulmonary nodules with the largest measuring 7 mm. 2. Mild emphysema and bronchial thickening. 3. Mild hepatic steatosis. 4. Incidental findings (s category): No incidental findings. ASSESSMENT: 1. Lung-RADS Category 2: Benign appearance or behavior of nodules. N/A RECOMMENDATION: Continued routine annual low-dose CT lung screening in 1 year is recommended. An order for CT CHEST LOW DOSE CANCER SCREENING ([id number]) can be placed.
== END 2024-01-03 08:17 | disposition home or self-care (01) ==
LOC: HO.CT 08:16
PROVIDERS: PCP Internal Medicine; Visit Provider Physician Assistant Medical
DX: Z12.2 Encounter for screening for malignant neoplasm of respiratory organs (principal); Z87.891 Personal history of nicotine dependence
CPT/HCPCS: 71271

== ENCOUNTER 2024-03-03 11:41 | Outpatient (REF) | payer OTHER, SELFPAY ==
[2024-03-03 14:56] LABS: Anion Gap 12 (12-20); Blood Urea Nitrogen 20 mg/dL (9-16); Calcium 9.4 mg/dL (8.4-10.2); Carbon Dioxide 27 mmol/L (22-29); Chloride 107 mmol/L (96-108); Estimated Glomerular Filt Rate > 60; Glucose Random 109 mg/dL (60-115); Potassium 4.1 mmol/L (3.3-5.1); Sodium 142 mmol/L (135-145)
== END 2024-03-03 11:42 | disposition home or self-care (01) ==
LOC: HO.CHCLDS 11:41
PROVIDERS: Visit Provider Internal Medicine
DX: I10 Essential (primary) hypertension (principal)
CPT/HCPCS: 36415; 80048

== ENCOUNTER 2024-05-19 09:46 | Outpatient (AMB) | payer OTHER, SELFPAY ==
--- NOTE | 2024-05-19 09:47 | MHC.OFFVIS ---
Intake Visit Reasons: 6M Med Review(Tadalafil) Intake Note: Patient is present for Med Review Urology Med: Tadalafil Antibiotic Allergy: None Blood Thinner: Aspirin Patient reports he is only taking aspirin, is no longer taking Clopidogrel Last PSA: 02/2021 1.31 Dev Manager Required: No Accompanied by: Self / Same As Patient Allergies hydrochlorothiazide Allergy (Severe, Verified 05/19/24 09:47) TONGUE SWELLING lisinopril [LISINOPRIL] Allergy (Severe, Verified 05/19/24 09:47) TONGUE SWELLING HPI Comments Details: Sascha is a pleasant male. He is a patient of Dr. Schmidt. He is seen for the following urologic conditions - erectile dysfunction - scrotal itch Telemedicine Evaluation 15 min Consultation Lifestyle Air Asher Video attempted Prescription for daily tadalafil with on demand Has been successful On exam had keritanized skin posterior Discussed moisturizer Continue with PD 5s for erectile issues Continue Aveeno eczema products Erectile dysfunction Able to attain but cannot maintain erection without oral medications Tadalafil 5 mg daily with 20 on demand successful PSA - 03/01 1.3 Associated hypertension and dyslipidemia Prior history of UTI and genital herpes Continue with yearly evaluation Scrotal itch Diflucan 2 doses Imipramine 50 mg for 1 month to allow healing PFSH Medical History ROSS (obstructive sleep apnea) Personal history of nicotine dependence Coronary artery disease Erectile dysfunction BPH (benign prostatic hyperplasia) HTN (hypertension) Surgical History Hx of heart artery stent History of left inguinal hernia repair History of ventral hernia repair History of cardiac cath History of appendectomy Family History Maternal Grandmother Intestinal cancer Sinus malignant neoplasm Maternal Grandfather Cancer Social History Are you a primary managed care coordinator to a significant other at home: Yes (son, will have post-op assistance) Do you presently have visiting nurse or other home services: No Alcohol intake: current Alcohol intake frequency: holidays/special occasions only Patient Tobacco Use Status: Former Tobacco user Tobacco use type: Cigarette Years Smoked: (onset 12yo, 1ppd x 35yrs, 35pyh, quit 2018) Review of Systems Const All systems reviewed & are unremarkable except as noted in HPI and below Reports no additional complaints Resp Reports no additional complaints GI Reports no additional complaints Reports as per HPI Musc Reports no additional complaints Physical Exam Telemedicine evaluation Appropriate responses Regular breathing rate and rhythm HEENT Head: Yes normal to inspection Ears: hearing grossly normal bilaterally Eyes General: appearance normal, both eyes and all related structures Neck Neck: Yes normal visual inspection Chest Chest palpation & inspection: normal inspection of the chest Resp Effort & Inspection: normal respiratory effort and able to speak in complete sentences Telehealth Telehealth Location of provider rendering services: practice address Location of patient: address on file Patient Identification confirmed using: Name, : Yes Telehealth method: voice only Patient verbally consented to treatment: Yes Patient verbally consented to billing insurance company: Yes Patient informed of any privacy concerns related to visit: Yes Assessment & Plan Assessment & Plan (1) Erectile dysfunction: Code(s): N52.9 - Male erectile dysfunction, unspecified Category: Medical Qualifiers: Erectile dysfunction type: vasculogenic Vasculogenic erectile dysfunction type: due to arterial insufficiency Qualified Code(s): N52.01 - Erectile dysfunction due to arterial insufficiency (2) Scrotal irritation: Code(s): N50.89 - Other specified disorders of the male genital organs Category: Medical Plan Continue combination PDE5 Medications: Refilled tadalafil 5 mg PO DAILY 90 tabs 1RF sexual activity 90 days N52.9 - Male erectile dysfunction, unspecified tadalafil 20 mg PO DAILY PRN 30 tabs 1RF sexual activity 30 days N52.9 - Male erectile dysfunction, unspecified Patient Instructions: Imaging studies, laboratory and physical exam results were discussed and reviewed in detail. No major barriers to patient understanding were identified. An opportunity to ask questions regarding the treatment plan was provided. All questions were answered. The patient expressed understanding and agreement with the above treatment plan. The patient is aware they should contact our office by phone for worsening of their current condition or the appearance of new urologic symptoms. Compliance is encouraged with any medications and followup testing that is ordered. It is a privilege to participate in the urologic care of your patient. If you have any questions or concerns regarding treatment for the above conditions, or other urologic issues, please do not hesitate to contact me. The office telephone contact is [phone]. This note is constructed using voice recognition software. While every effort has been made to ensure accuracy experimental machining lab manager errors may have been included. Yours sincerely, Dr Cb Thayer MD, [facility] - Urology Providers of Expert, Compassionate Care for the Genitourinary System Coding Level of Care Code Tele Est Pt Level 3 (84250) Diagnoses Erectile dysfunction due to arterial insufficiency N52.01 Erectile dysfunction type: vasculogenic Vasculogenic erectile dysfunction type: due to arterial insufficiency Scrotal irritation N50.89
== END 2024-05-19 10:31 | disposition home or self-care (01) ==
LOC: HO.HUSH 09:46
PROVIDERS: PCP Internal Medicine; Visit Provider Urology
DX: N52.01 Erectile dysfunction due to arterial insufficiency (principal); N50.89 Other specified disorders of the male genital organs
CPT/HCPCS: 99213

== ENCOUNTER 2024-10-23 08:23 | Outpatient (REF) | payer OTHER, SELFPAY ==
--- OUTSIDE RECORDS SUMMARY | 2024-10-23 08:42 | XMS_ITS | Encounter Summary ---
Author Organization [employer] Address [address] [place] [id number] Care Team Providers Care Recenterer Name Role Phone Kassie Lauren MD Primary Care Provider [phone] Reason for Visit * Reason Comments Med Refill Encounter Details Date Type Department Care Team ([facility] st Contact Info) Description 10/16/2024 Refill [facility] CHC MED & PEDS [address] [place] [address] Kassie Lauren MD [address] [place] [address] BMI 38.0-38.9,adult; Class 2 severe obesity due to excess calories with serious comorbidity and body mass index (BMI) of 38.0 to 38.9 in adult (CMS/HCC); Severe obesity (BMI >= 40) (CMS/HCC); Chronic stable angina (CMS/HCC) Social History Tobacco Use Types Packs/Day Years Used Date Smoking Tobacco: Former Cigarettes Smokeless Tobacco: Never Depression Answer Date Recorded Patient Health Questionnaire-9 Score 5 10/20/2024 Patient Health Questionnaire-9 Score 5 10/20/2024 Last PHQ-9: Questionnaire Data Not on file 0 10/20/2024 Housing Stability Answer Date Recorded What is your housing situation today? I have oj schultz 10/20/[address] you li ve. Do you have problems with any of the following? None of the above 10/20/2024 Food Insecurity Answer Date Recorded Within the past 12 months, y ou worried that your food would run out before you got money to buy more: Never True 10/20/2024 Within the past 12 months,th e food you bought just didn't last and you didn't have enough money to get more: Never True 05/2025 Transportation Answer Date Recorded In the past 12 months, has l ack of transportation kept you from medical appts, meetings, work or from getting things needed for daily living? No 10/20/2024 Utilities Answer Date Recorded In the past 12 months, has t he electric, gas, oil or water company threatened to shut off services in your home? No 10/20/2024 Depression Answer Date Recorded Patient Health Questionnaire-2 Score 0 10/20/2024 Internet Access Answer Date Recorded Internet Access Q1 Yes 10/20/2024 Internet Access Q2 Not on file 10/20/2024 Sex and Gender Information Value Date Recorded Sex Assigned at Male 05/11/2022 10:21 AM EDT Legal Sex Male 10:21 AM EDT Gender Identity Male 05/11/2022 10:21 AM EDT Sexual Orientation Straight 05/11/2022 10 :21 AM EDT documented as of this encounter Plan of Treatment Upcoming Encounters Date Type Department Care Team (Late st Contact Info) Description 01/01/2025 4:00 PM EDT Office Visit [facility] MED & PEDS [address] [place], [place] [phone] Kassie Lauren MD [address] [place] [address] documented as of this encounter Visit Diagnoses Diagnosis BMI 38.0-38.9,adult Class 2 severe obesity due to excess calories with serious comorbidity and body mass index (BMI) of 38.0 to 38.9 in adult (CMS/HCC) Severe obesity (BMI >= 40) (CMS/HCC) Chronic stable angina (CMS/HCC) documented in this encounter Additional Health Concerns Assessment Noted Time PHQ-9 Depression Total Score: 0 11/03/19 23 2:16 PM EDT documented as of this encounter Care Teams Recenterer Relationship Specialty Start Date End Date Kassie Lauren MD [address] [place] [address] PCP - General Internal Medicine 07/12/18 documented as of this encounter
--- OUTSIDE RECORDS SUMMARY | 2024-10-23 08:42 | XMS_ITS | Encounter Summary ---
Author Organization [employer] Address [address] [facility] [address] [place] [address] Care Team Providers Care Printer Machine Name Role Phone Kassie Lauren MD Primary Care Provider [phone] Encounter Details Date Type Department Care Team ([facility] Contact Info) Description 11/26/2023 Orders Only [facility] CHC MED & PEDS [address] [place] [address] Kassie Lauren MD [address] [place] [address] Severe obesity (BMI >= 40) (CMS/HCC) (Primary Dx) Social History Tobacco Use Types Packs/Day Years Used Date Smoking Tobacco: Former Cigarettes Smokeless Tobacco: Never Depression Answer Date Recorded Patient Health Questionnaire-9 Score 0 11/02/2022 Housing Stability Answer Date Recorded What is your housing situation today? Not on shaji e 05/12/[address] you li ve. Do you have problems with any of the following? None of the above 05/12/2023 Food Insecurity Answer Date Recorded Within the past 12 months, y ou worried that your food would run out before you got money to buy more: Never True 05/12/2023 Within the past 12 months,th e food you bought just didn't last and you didn't have enough money to get more: Never True 07/2022 Transportation Answer Date Recorded In the past 12 months, has l ack of transportation kept you from medical appts, meetings, work or from getting things needed for daily living? No 05/12/2023 Utilities Answer Date Recorded In the past 12 months, has t he electric, gas, oil or water company threatened to shut off services in your home? No 05/12/2023 Depression Answer Date Recorded Patient Health Questionnaire-2 Score 0 11/02/2022 Sex and Gender Information Value Date Recorded Sex Assigned at Male 05/11/2022 10:21 AM EDT Legal Sex Male 10:21 AM EDT Gender Identity Male 05/11/2022 10:21 AM EDT Sexual Orientation Straight 05/11/2022 10 :21 AM EDT documented as of this encounter Plan of Treatment Upcoming Encounters Date Type Department Care Team (Late st Contact Info) Description 01/01/2025 4:00 PM EDT Office Visit [facility] MED & PEDS [address] [place] [address] Kassie Lauren MD [address] [place] [address] documented as of this encounter Visit Diagnoses Diagnosis Severe obesity (BMI >= 40) (CMS/HCC)- Primary documented in this encounter Additional Health Concerns Assessment Noted Time PHQ-9 Depression Total Score: 0 11/03/19 23 2:16 PM EDT documented as of this encounter Care Teams Printer Machine Relationship Specialty Start Date End Date Kassie Lauren MD [address] [place] [address] PCP - General Internal Medicine 07/12/18 documented as of this encounter
--- OUTSIDE RECORDS SUMMARY | 2024-10-23 08:42 | XMS_ITS | Encounter Summary ---
Author Organization [employer] Address [address] [facility] [address] [place] [address] Care Team Providers Care State Farm Agent Name Role Phone Kassie Lauren MD Primary Care Provider [phone] Encounter Details Date Type Department Care Team ([facility] st Contact Info) Description 11/09/2023 Orders Only [facility] CHC MED & PEDS [address] [place] [address] Kassie Lauren MD [address] [place] [address] Pruritus scroti (Primary Dx); Benign essential hypertension; Microscopic hematuria Social History Tobacco Use Types Packs/Day Years [...] Description 01/01/2025 4:00 PM EDT Office Visit [facility] MED & PEDS [address] [place], [place] [phone] Kassie Lauren MD [address] [place] [address] documented as of this encounter Procedures Procedure Name Priority Date/Time Associated Diagnosis Comments URINALYSIS, COMPLETE Routine 11/25/2023 8:38 AM EDT Microscopic hematuria BASIC METABOLIC PANEL Routine 11/25/2023 8:30 AM EDT Benign essential hypertension URINALYSIS, COMPLETE Routine 11/09/2023 2:39 PM EDT Pruritus scroti documented in this encounter Results * Urinalysis Complete (11/25/2023 8:38 AM EDT) Color Urine Yellow [facility] Appearance Urine Clear [facility] PH 5.5 5.0 - 9.0 [facility] Glucose Urine UA Negative Negative mg/dL [facility] Urine Blood Negative Negative [facility] Specific [place] - Urine 1.010 1.005 - 1.025 [facility] Urine Protein Negative Neg-Trace mg/dL [facility] Urine Ketones Negative Negative mg/dL [facility] Nitrite Urine Negative Negative [facility] Leukocyte Esterase Urine Negative Negative [facility] RBC Urine 0-2 0 - 2 /HPF [facility] Urine WBC 0-5 0 - 5 /HPF [facility] Urine Squamous Epithelial Cell 0-2 0 - 2 /HPF [facility] Urine Bacteria None Seen None Seen [facility] Hyaline Casts, Urine 0-2 0 - 2 /LPF [facility] Urine (Urine, Random) 11/25/2023 8:38 AM EDT 11/25/2023 2:30 PM EDT us Kassie Lauren MD LAB URINE ORDERABLES Final Result Performing Organization Address City/[facility]/ZIP Co de Phone Number [facility] [address] [place] [address] [phone] * (ABNORMAL) Basic Metabolic Panel (11/25/2023 8:30 AM EDT) Sodium 144 135 - 145 mmol/L [facility] Potassium 3.9 3.3 - 5.1 mmol/L [facility] Chloride 105 96 - 108 mmol/L [facility] Carbon Dioxide 25 22 - 29 mmol/L [facility] Anion Gap 18 12 - 20 [facility] Urea Nitrogen (BUN) 17(H) 9 - 16 mg/dL [facility] Creatinine, Serum 1.00 0.5 - 1.4 mg/dL [facility] Estimated Glomerular Filt Rate >60 [facility] Comment:NOTE: For -Am erican individuals, multiply the result by 1.210.Chronic Kidney Disease: Estimated GFR < 60 mL/min/1.39f1Nblims Kidney Disease: Estimated GFR < 15 mL/min/1.73m2 Glucose 90 60 - 115 mg/dL [facility] Calcium 9.4 8.4 - 10.2 mg/dL [facility] Blood Venous blood specimen / Unknown 11/25/2023 8:30 AM EDT 11/25/2023 2:39 PM EDT us Kassie Lauren MD LAB BLOOD ORDERABLES Final Result [facility] [address] [place] [address] [phone] * (ABNORMAL) Urinalysis Complete (11/09/2023 2:39 PM EDT) Color Urine Dark Yellow [facility] Appearance Urine Cloudy [facility] PH 6.0 5.0 - 9.0 [facility] Glucose Urine UA Negative Negative mg/dL [facility] Urine Blood Large (3+)(A) Negative [facility] Specific [place] - Urine >=1.030(H) 1.005 - 1.025 [facility] Urine Protein Trace Neg-Trace mg/dL [facility] Urine Ketones Trace Negative mg/dL [facility] Nitrite Urine Negative Negative [facility] Leukocyte Esterase Urine Moderate (2+)(A) Negative [facility] RBC Urine 11-20(A) 0 - 2 /HPF [facility] Urine WBC 21-50 0 - 5 /HPF [facility] Urine Squamous Epithelial Cell 0-2 0 - 2 /HPF [facility] Urine Bacteria None Seen None Seen [facility] Hyaline Casts, Urine 0-2 0 - 2 /LPF [facility] Urine (Urine, Random) 11/09/2023 2:39 PM EDT 11/09/2023 5:35 PM EDT Kassie Lauren MD LAB URINE ORDERABLES Final Result Performing Organization Address [facility]/ZIP Co de Phone Number [facility] [address] [place] [address] [phone] documented in this encounter Visit Diagnoses Diagnosis Pruritus scroti- Primary Pruritus of genital organs Benign essential hypertension Essential hypertension, benign Microscopic hematuria documented in this encounter Additional Health Concerns Assessment Noted Time PHQ-9 Depression Total Score: 0 11/03/19 23 2:16 PM EDT documented as of this encounter Care Teams State Farm Agent Relationship Specialty Start Date End Date Kassie Lauren MD [address] [place] [address] PCP - General Internal Medicine 07/12/18 documented as of this encounter
--- OUTSIDE RECORDS SUMMARY | 2024-10-23 08:42 | XMS_ITS | Encounter Summary ---
Author Organization [employer] Address [address] [address] Care Team Providers Care Supervisor Rolling Room Name Role Phone Kassie Lauren MD Primary Care Provider [phone] Reason for Visit * Reason Comments Med Refill Encounter Details Date Type Department Care Team ([facility] st Contact Info) Description 04/21/2023 Refill [facility] MEDICINE [address] [place] [address] Kassie Lauren MD [address] [place] [address] Primary osteoarthritis involving multiple joints Social History Tobacco Use Types Packs/Day Years Used Date Smoking Tobacco: Never Assessed Depression Answer Date Recorded Patient Health Questionnaire-9 Score 0 11/02/2022 Housing Stability Answer Date Recorded What is your housing situation today? Not on shaji e 04/18/[address] you li ve. Do you have problems with any of the following? None of the above 04/18/2023 Food Insecurity Answer Date Recorded Within the past 12 months, y ou worried that your food would run out before you got money to buy more: Never True 04/18/2023 Within the past 12 months,th e food you bought just didn't last and you didn't have enough money to get more: Never True 02/2023 Transportation Answer Date Recorded In the past 12 months, has l ack of transportation kept you from medical appts, meetings, work or from getting things needed for daily living? No 04/18/2023 Utilities Answer Date Recorded In the past 12 months, has t he electric, gas, oil or water [employer] threatened to shut off services in your home? No 04/18/2023 Depression Answer Date Recorded Patient Health Questionnaire-2 Score 0 11/02/2022 Sex and Gender Information Value Date Recorded Sex Assigned at Male 05/11/2022 10:21 AM EDT Legal Sex Male 10:21 AM EDT Gender Identity Male 05/11/2022 10:21 AM EDT Sexual Orientation Straight 05/11/2022 10 :21 AM EDT documented as of this encounter Miscellaneous Notes * Telephone Encounter - Kassie Lauren MD - 04/21/2023 1:39 PM EDT Let's hold Oral NSAIDs for now in view of pt's h/o Heart problem. We going to do a trial of Diclofenac gel. If not helpful we will consider other modality to treat the joint pains. documented in this encounter Plan of Treatment Upcoming Encounters Date Type Department Care Team (Late st Contact Info) Description 01/01/2025 4:00 PM EDT Office Visit [facility] CHC MED & PEDS [address] [place] [address] Kassie Lauren MD [address] [place] [address] documented as of this encounter Visit Diagnoses Diagnosis Primary osteoarthritis involving multiple joints documented in this encounter Additional Health Concerns Assessment Noted Time PHQ-9 Depression Total Score: 0 11/03/19 23 2:16 PM EDT documented as of this encounter Care Teams Supervisor Rolling Room Relationship Specialty Start Date End Date Kassie Lauren MD [address] [place] [address] PCP - General Internal Medicine 07/12/18 documented as of this encounter
--- OUTSIDE RECORDS SUMMARY | 2024-10-23 08:42 | XMS_ITS | Encounter Summary ---
Author Organization [employer] Address [address] [facility] [address] [place] [address] Care Team Providers Care Hot Car Operator Name Role Phone Kassie Lauren MD Primary Care Provider [phone] Encounter Details Date Type Department Care Team ([facility] Contact Info) Description 11/02/2023 Telephone [facility] CHC MED & PEDS [address] [place] [address] Kassie Lauren MD [address] [place] [address] Social History Tobacco Use Types Packs/Day Years [...] encounter Miscellaneous Notes * Telephone Encounter - Kevin Ackerman RN - 11/02/2023 2:34 PM EDT Please see message below. * Telephone Encounter - Nury Bishop - 11/02/2023 2:16 PM EDT Tc from margie with [facility] calling to inform insurance does not cover medication tacrolimus (Protopic) 0.1 % ointment (disp 60g) . Insurance will only cover the 30 g . documented in this encounter Plan of Treatment Upcoming Encounters Date Type Department Care Team (Late st Contact Info) Description 01/01/2025 4:00 PM EDT Office Visit [facility] MED & PEDS [address] [place] [address] Kassie Lauren MD [address] [place] [address] documented as of this encounter Visit Diagnoses Diagnosis Pruritus scroti Pruritus of genital organs documented in this encounter Additional Health Concerns Assessment Noted Time PHQ-9 Depression Total Score: 0 11/03/19 23 2:16 PM EDT documented as of this encounter Care Teams Hot Car Operator Relationship Specialty Start Date End Date Kassie Lauren MD [address] [place] [address] PCP - General Internal Medicine 07/12/18 documented as of this encounter
--- OUTSIDE RECORDS SUMMARY | 2024-10-23 08:42 | XMS_ITS | Encounter Summary ---
Author Organization [employer] Address [address] [address] Care Team Providers Care Cloth Washer Name Role Phone Kassie Lauren MD Primary Care Provider [phone] Reason for Visit * Reason Onset Date Comments Nurse Triage 11/09/2023 Encounter Details Date Type Department Care Team (Late st Contact Info) Description 11/09/2023 Telephone [facility] [address] [place] [address] Kassie Lauren MD [address] [place], [place] [phone] Nurse Triage Social History Tobacco Use Types Packs/Day Years [...] t he electric, gas, oil or water [employer] threatened to shut off services in your [...] encounter Miscellaneous Notes * Telephone Encounter - Alisa Barajas RN - 11/09/2023 5:38 PM EDT TC placed to pt for BP log Today 11/09/23 Am 139/100 pulse 79 PM 148/87 pulse 97 Tuesday 11/07 126/79 pulse 79 Wednesday11/07/23 131/92 pulse 88 Wednesday11/06/23 155/92 pulse 62 Wednesday11/05/23 AM 149/92 pulse 86 PM 140/98 pulse 90 Sending to PCP as requested * Telephone Encounter - Alisa Barajas RN - 11/09/2023 1:05 PM EDT ----- Message from Kassie Lauren MD sent at 11/01/2023 3:40 PM EDT ----- Please get the BP readings of Mr Sascha Hand In a week. TC placed to pt he states he is at work and he will be home later today he is agreeable to a call later so BP reading can be sent to PCP. Message was sent to provider regarding message below as well * Telephone Encounter - Juliana Hale RN - 11/09/2023 9:01 AM EDT Called pt. He states that when he was a kid he had Kidney stones. The other night pt. Had severe abdominal pain and was dry heaving x about 3 hours. Pt. Took some Melatonin and went to bed. The next morning pt. Woke up and had no abdominal pain at all. Last night pt. States that his penis was hurting. Pt. Urinated last night and felt like something was in his penis. This am pt. Urinated and has no pain but he did have a little blood in urine. Pt. Has absolutely no pain. Pt. Never had a fever. Pt. Not sure if he passed a kidney stone. Pt. Has to go for labs this afternoon and is wanting to give PCP a heads up in case he wants to order any lab work or possibly a Urine just to make sure pt. Does not have a UTI. Pt. Feels fine now but, with the episode of abdominal pain a couple days ago, pain in his penis last night and then blood in urine last night while urinating, pt. Unsure if he passed a kidney stone or if he has anything else going on. Please advise if you are going to add labwork orders as pt. Has to go already this afternoon for labs from specialist. Protocol Used: Abdominal Pain - Male (Adult) Protocol-Based Disposition: Go to ED/UCC Now (or to Office with PCP Approval)- Pt. Has no more painat present Positive Triage Questions: * Mild to Moderate constant pain lasting > 2 hours * Blood in urine (red, pink, or tea-colored) * All higher-acuity triage questions were negative Care Advice Discussed: * Drink Clear Fluids * Telephone Encounter - Keyonna Camacho - 11/09/2023 8:52 AM EDT Symptom: Abdominal Pain - Male Outcome: Schedule an appointment to be seen within 24 hours Reason: Blood in the urine The caller accepted this outcome documented in this encounter Plan of Treatment Upcoming Encounters Date Type Department Care Team (Late st Contact Info) Description 01/01/2025 4:00 PM EDT Office Visit [facility] MED & PEDS [address] [place] [address] Kassie Lauren MD [address] [place] [address] documented as of this encounter Visit Diagnoses Not on filedocumented in this encounter Additional Health Concerns Assessment Noted Time PHQ-9 Depression Total Score: 0 11/03/19 23 2:16 PM EDT documented as of this encounter Care Teams Cloth Washer Relationship Specialty Start Date End Date Kassie Lauren MD [address] [place] [address] PCP - General Internal Medicine 07/12/18 documented as of this encounter
--- OUTSIDE RECORDS SUMMARY | 2024-10-23 08:42 | XMS_ITS | Encounter Summary ---
Author Organization [employer] Address [address] [address] Care Team Providers Care Sheet Metal Foreman Name Role Phone Kassie Lauren MD Primary Care Provider [phone] Reason for Visit * Reason Onset Date Comments Appointment Request 07/09/2023 Encounter Details Date Type Department Care Team ([facility] st Contact Info) Description 07/09/2023 Telephone [facility] MEDICINE [address] [place] [address] Kassie Lauren MD [address] [place], [place] [phone] Appointment Request Social History Tobacco Use Types Packs/Day Years [...] t he electric, gas, oil or water [employer] threatened to shut off services in your [...] encounter Miscellaneous Notes * Telephone Encounter - Nell Ray - 07/15/2023 10:05 AM EST Tc from pt calling in regards to appointment request. Please contact pt at [phone] * Telephone Encounter - Carlos Pradhan - 07/09/2023 11:22 AM EST Tc from pt requesting a Tele visit with pcp regarding Colonoscopy and wants to check up with his provider. Please contact pt at [phone]. documented in this encounter Plan of Treatment Upcoming Encounters Date Type Department Care Team ([facility] st Contact Info) Description 01/01/2025 4:00 PM EDT Office Visit [facility] MED & PEDS [address] [place] [address] Kassie Lauren MD [address] [place] [address] documented as of this encounter Visit Diagnoses Not on filedocumented in this encounter Additional Health Concerns Assessment Noted Time PHQ-9 Depression Total Score: 0 11/03/19 23 2:16 PM EDT documented as of this encounter Care Teams Sheet Metal Foreman Relationship Specialty Start Date End Date Kassie Lauren MD [address] [place] [address] PCP - General Internal Medicine 07/12/18 documented as of this encounter
--- OUTSIDE RECORDS SUMMARY | 2024-10-23 08:42 | XMS_ITS | Encounter Summary ---
Author Organization [employer] Address [address] [place] [id number] Care Team Providers Care Parking Supervisor Name Role Phone Kassie Lauren MD Primary Care Provider [phone] Reason for Visit * Reason Comments Follow-up Encounter Details Date Type Department Care Team ([facility] st Contact Info) Description 10/20/2024 4:00 PM EDT Office Visit [facility]S [address] [place] [address] Kassie Lauren MD [address] [place] [address] BMI 38.0-38.9,adult (Primary Dx); Obesity (BMI 30-39.9); Neck pain; Tingling in extremities; Primary insomnia Social History Tobacco Use Types Packs/Day Years [...] AM EDT documented as of this encounter Last Filed Vital Signs Vital Sign Reading Time Taken Comments Blood Pressure 126/79 10/20/2024 3:54 PM EDT Pulse 70 10/20/2024 3:54 PM EDT Temperature 36.6 ??C (97.9 ??F) 10/20/2024 3:54 PM ED T Respiratory Rate 20 10/20/2024 3:54 PM EDT Oxygen Saturation 95% 10/20/2024 3:54 PM EDT Inhaled Oxygen Concentration - - Weight 129 kg (285 lb) 10/20/2024 3:54 PM EDT Height 185.4 cm (6' 1 ) 10/20/2024 3:54 PM EDT Body Mass Index 37.6 10/20/2024 3:54 PM EDT documented in this encounter Progress Notes * Kassie Lauren MD - 10/20/2024 4:00 PM EDT Subjective Patient ID: Sascha Hand is a 54 y.o. male who presents for No chief complaint on file.. HPI 1) history of severe obesity. Patient has lost about 9 pounds since the last office visit. And overall he has lost 28 pounds since he was started on Wegovy. The current dose is well-tolerated otherwise. 2) history of paresthesias of the right upper limb for the last month or so. Was evaluated by chiropractor and underwent some neck manipulation without improvement of the symptoms. He has the tingling of the right forearm and the first 3 digits mostly at night. Currently on gabapentin 600 mg at bedtime which has not been very helpful so far. 3) history of insomnia. Patient is very anxious about getting cancer. Mother recently treated with metastatic colon cancer now in remission. He also reports multiple family members with cancers including an aunt with possible leukemia. Show Patient Active Problem List Diagnosis Benign essential hypertension Chronic stable angina (CMS/HCC) Hyperlipidemia Allergies Allergen Reactions Hydrochlorothiazide Other reaction(s): Swelling of throat, Tongue swelling Lisinopril Other reaction(s): Angioedema Current Outpatient Medications on File Prior to Visit Medication Sig Dispense Refill amLODIPine (Norvasc) 5 MG tablet Take 1 tablet by mouth. aspirin 81 MG EC tablet Take 81 mg by mouth in the morning. atorvastatin (Lipitor) 80 MG tablet TAKE 1 TABLET BY MOUTH EVERY DAY 30 tablet 5 atorvastatin (Lipitor) 80 MG tablet TAKE 1 TABLET BY MOUTH EVERY DAY 30 tablet 5 atorvastatin (Lipitor) 80 MG tablet Take 1 tablet (80 mg) by mouth Once per day. 90 tablet 3 Brilinta 90 MG tablet Take 90 mg by mouth 2 times daily. Diclofenac Sodium 1 % gel To apply to the affected areas 4 times a day 100 g 3 furosemide (Lasix) 20 MG tablet TAKE 1 TABLET(20 MG) BY MOUTH DAILY 90 tablet 1 gabapentin (Neurontin) 400 MG capsule Take 1 capsule (400 mg) by mouth 3 times daily. 90 capsule 11 gabapentin (Neurontin) 600 MG tablet Take 1 tablet (600 mg) by mouth 2 times daily. 60 tablet 11 hydrocortisone 2.5 % cream APPLY TOPICALLY TO THE AFFECTED AREA TWICE DAILY 28.35 g 0 isosorbide mononitrate ER (Imdur) 60 MG 24 hr tablet Take 1 tablet by mouth. losartan (Cozaar) 100 MG tablet TAKE 1 TABLET(100 MG) BY MOUTH DAILY 90 tablet 0 losartan (Cozaar) 100 MG tablet TAKE 1 TABLET(100 MG) BY MOUTH DAILY 90 tablet 3 Semaglutide-Weight Management (Wegovy) 0.25 MG/0.5ML solution auto-injector 0.25 mg once a week. 2 mL 3 Semaglutide-Weight Management (Wegovy) 0.5 MG/0.5ML solution auto-injector ADMINISTER 0.5 MG UNDER THE SKIN 1 TIME A WEEK 2 mL 0 tacrolimus (Protopic) 0.1 % ointment Apply topically 2 times daily. 30 g 1 [DISCONTINUED] hydrOXYzine HCl (Atarax) 25 MG tablet TAKE 1 TABLET BY MOUTH NEEDED IN THE MORNING, AT NOON, AND AT BEDTIME FOR ITCHING 90 tablet 3 No current facility-administered medications on file prior to visit. Review of Systems Constitutional: Negative for appetite change, chills and diaphoresis. HENT: Negative for drooling, ear discharge and ear pain. Respiratory: Negative for cough, choking and shortness of breath. Cardiovascular: Negative for leg swelling. Neurological: Tingling of the right upper limb and left lower limb. Objective Physical Exam Constitutional: General: He is not in acute distress. Appearance: Normal appearance. He is obese. He is not ill-appearing, toxic- appearing or diaphoretic. Cardiovascular: Rate and Rhythm: Normal rate. Heart sounds: No murmur heard. No friction rub. Pulmonary: Effort: Pulmonary effort is normal. No respiratory distress. Neurological: General: No focal deficit present. Mental Status: He is alert. Psychiatric: Mood and Affect: Mood normal. Assessment/Plan Diagnoses and all orders for this visit: BMI 38.0-38.9,adult Obesity (BMI 30-39.9) - Semaglutide-Weight Management (Wegovy) 1 MG/0.5ML solution auto-injector; 1 mg once a week. The medication is well-tolerated so far. The dose will be increased to 1 mg once a week He will follow-up with us in 2 months. Reviewed indications for pharmacotherapy with patient, which is treatment for patient w/ obesity ora patient with a BMI > 27 w/ CV risk factors who have failed lifestyle modifications alone. These are always prescribed in combination with ongoing lifestyle modification; and will be titrated up from the lowest dose. Will start patient on Wegovy, given know efficacy and proven benefits to reduce the risk of cardiovascular events in patients who are overweight or obese and have cardiovascular disease, following of the SELECT trial results. Reviewed mechanism of action with patient. Discussed side effects with patient: nausea, vomiting, diarrhea & risk of pancreatitis. No contraindications identified: , hx of pancreatitis, hx of medullary thyroid cancer or MEN 2. Discussed calorie deficit, recommended reduction of 20-30% of maintenance calories; technician support engineer referral offered. Recommended to decrease soda and sugary beverage consumption. Recommended at least 20 g per meal of protein to assist with satiety. Recommended at least 150 min/week of moderate intensity exercise. Neck pain Comments: Moist heat Gentle stretching exercises Orders: - XR Cervical Spine 2-3 Views; Future Tingling in extremities Comments: Increase gabapentin dose to 800 mg at bedtime Cervical spine x-ray ordered. The results of the workup will be reviewed with him when ready Orders: - gabapentin (Neurontin) 800 MG tablet; Take 1 tablet (800 mg) by mouth at bedtime. - Vitamin B12/Folate, Serum Panel; Future - Vitamin B6; Future - Comprehensive Metabolic Panel; Future - Hemoglobin A1c; Future Primary insomnia Comments: Appropriate sleep hygiene discussed Increased hydroxyzine to 50-100 mg at bedtime Orders: - hydrOXYzine pamoate (Vistaril) 50 MG capsule; Take 1 capsule (50 mg) by mouth if needed at bedtime for itching. 1-2 tabs at bedtime documented in this encounter Plan of Treatment Upcoming Encounters Date Type Department Care Team (Late st Contact Info) Description 01/01/2025 4:00 PM EDT Office Visit [facility] MED & PEDS [address] [place] [address] Kassie Lauren MD [address] [place] [phone] Scheduled Orders Name Type Priority Associated Diagnoses Orde r Schedule XR Cervical Spine 2-3 Views Imaging Routine Neck pain Expected: 10/20/2024, Expires: 10/20/2025 Vitamin B12/Folate, Serum Panel Lab Routine Tingling in extremities Expected: 10/20/2024, Expires: 10/20/2025 Vitamin B6 Lab Routine Tingling in extremities Expected: 10/20/2024, Expires: 10/20/2025 Comprehensive Metabolic Panel Lab Routine Tingling in extremities Expected: 10/20/2024 (Approximate), Expires: 10/20/2025 Hemoglobin A1c Lab Routine Tingling in extremities Expected: 10/20/2024 (Approximate), Expires: 10/20/2025 documented as of this encounter Visit Diagnoses Diagnosis BMI 38.0-38.9,adult- Primary Obesity (BMI 30-39.9) Neck pain Cervicalgia Tingling in extremities Primary insomnia Persistent disorder of initiating or maintaining sleep documented in this encounter Additional Health Concerns Assessment Noted Time PHQ-9 Depression Total Score: 5 10/21/19 25 4:37 PM EDT documented as of this encounter Care Teams Parking Supervisor Relationship Specialty Start Date End Date Kassie Lauren MD [address] [place] [id number] PCP - General Internal Medicine 07/12/18 documented as of this encounter
--- OUTSIDE RECORDS SUMMARY | 2024-10-23 08:43 | XMS_ITS | Encounter Summary ---
Author Organization [employer] Address [address] [facility] [address], [place] [address] Care Team Providers Care Global Marketing Operations Manager Name Role Phone Kassie Lauren MD Primary Care Provider [phone] Encounter Details Date Type Department Care Team ([facility] Contact Info) Description 06/30/2024 Orders Only [facility]S [address] [place] [address] Kassie Lauren MD [address] [place] [address] Social History Tobacco Use Types Packs/Day Years [...] 4:00 PM EDT Office Visit [facility] MED & PEDS [address] [place] [address] Kassie Lauren MD [address] [place] [address] documented as of this encounter Visit Diagnoses Not on filedocumented in this encounter Additional Health Concerns Assessment Noted Time PHQ-9 Depression Total Score: 0 11/03/19 23 2:16 PM EDT documented as of this encounter Care Teams Global Marketing Operations Manager Relationship Specialty Start Date End Date Kassie Lauren MD [address] [place] [address] PCP - General Internal Medicine 07/12/18 documented as of this encounter
--- OUTSIDE RECORDS SUMMARY | 2024-10-23 08:43 | XMS_ITS | Clinical Summary ---
Author Organization [employer] Address [address] [facility] 7 [place] [address] Care Team Providers Care Registered Dental Assistant Rda Name Role Phone Kassie Lauren MD Primary Care Provider [phone] Allergies Active Allergy Reactions Criticality Noted Date Comments Hydrochlorothiazide High 12/23/2018 Other reaction(s): Swelling of throat, Tongue swelling Lisinopril 02/20/2013 Other reaction(s): Angioedema Medications amLODIPine (Norvasc) 5 MG tablet Take 1 tablet by mouth. 022 Active aspirin 81 MG EC tablet Take 81 mg by mouth in the morning. 019 Active isosorbide mononitrate ER (Imdur) 60 MG 24 hr tablet Take 1 tablet by mouth. 019 Active Brilinta 90 MG tablet Take 90 mg by mouth 2 times daily. 023 Active gabapentin (Neurontin) 400 MG capsuleIndication s:Bacterial conjunctivitis Take 1 capsule (400 mg) by mouth 3 times daily. 90 capsule 11 023 Active Diclofenac Sodium 1 % gelIndications:Pa in in other joint To apply to the affected areas 4 times a day 100 g 3 023 Active atorvastatin (Lipitor) 80 MG tablet TAKE 1 TABLET BY MOUTH EVERY DAY 30 tablet 5 024 Active hydrocortisone 2.5 % creamIndications: Pruritic intertrigo APPLY TOPICALLY TO THE AFFECTED AREA TWICE DAILY 28.35 g 024 Active gabapentin (Neurontin) 600 MG tabletIndications :Pruritus scroti Take 1 tablet (600 mg) by mouth 2 times daily. 60 tablet 11 024 2024 Active tacrolimus (Protopic) 0.1 % ointmentIndicatio ns:Pruritus scroti Apply topically 2 times daily. 30 g 1 024 2024 Active atorvastatin (Lipitor) 80 MG tablet TAKE 1 TABLET BY MOUTH EVERY DAY 30 tablet 5 024 Active atorvastatin (Lipitor) 80 MG tabletIndications :Mixed hyperlipidemia Take 1 tablet (80 mg) by mouth Once per day. 90 tablet 3 024 Active losartan (Cozaar) 100 MG tabletIndications :Benign essential hypertension TAKE 1 TABLET(100 MG) BY MOUTH DAILY 90 tablet 024 Active losartan (Cozaar) 100 MG tabletIndications :Benign essential hypertension TAKE 1 TABLET(100 MG) BY MOUTH DAILY 90 tablet 3 024 Active Semaglutide-Weigh t Management (Wegovy) 0.25 MG/0.5ML solution auto-injectorIndi cations:Severe obesity (BMI >= 40) (CMS/HCC),Chronic stable angina (CMS/HCC) 0.25 mg once a week. 2 mL 3 024 Active Semaglutide-Weigh t Management (Wegovy) 0.5 MG/0.5ML solution auto-injectorIndi cations:BMI 38.0-38.9,adult,C lass 2 severe obesity due to excess calories with serious comorbidity and body mass index (BMI) of 38.0 to 38.9 in adult (CMS/HCC) ADMINISTER 0.5 MG UNDER THE SKIN 1 TIME A WEEK 2 mL 025 Active furosemide (Lasix) 20 MG tabletIndications :Benign essential hypertension TAKE 1 TABLET(20 MG) BY MOUTH DAILY 90 tablet 1 025 Active Semaglutide-Weigh t Management (Wegovy) 1 MG/0.5ML solution auto-injectorIndi cations:Obesity (BMI 30-39.9) 1 mg once a week. 2 mL 1 025 Active gabapentin (Neurontin) 800 MG tabletIndications :Tingling in extremities Take 1 tablet (800 mg) by mouth at bedtime. 30 tablet 11 025 2025 Active hydrOXYzine pamoate (Vistaril) 50 MG capsuleIndication s:Primary insomnia Take 1 capsule (50 mg) by mouth if needed at bedtime for itching. 1-2 tabs at bedtime 30 capsule 3 025 2024 Active furosemide (Lasix) 20 MG tabletIndications :Benign essential hypertension Take 1 tablet (20 mg) by mouth Once per day. 30 tablet 3 024 2024 Discontinued hydrOXYzine HCl (Atarax) 25 MG tabletIndications :Pruritic intertrigo TAKE 1 TABLET BY MOUTH NEEDED IN THE MORNING, AT NOON, AND AT BEDTIME FOR ITCHING 90 tablet 3 025 2024 Discontinued(T herapy completed) Active Problems Problem Noted Date Diagnosed Date Chronic stable angina 11/02/2022 Benign essential hypertension 01/19/2013 Hyperlipidemia 01/19/2013 Encounters Date Type Department Care Team Description 10/20/2024 4:00 PM EDT Office Visit [facility] [address] [place] [address] Kassie Lauren MD BMI 38.0-38.9,adult (Primary Dx); Obesity (BMI 30-39.9); Neck pain; Tingling in extremities; Primary insomnia 10/20/2024 Travel 10/16/2024 Refill [facility] [address] [place] [address] Kassie Lauren MD BMI 38.0-38.9,adult; Class 2 severe obesity due to excess calories with serious comorbidity and body mass index (BMI) of 38.0 to 38.9 in adult (CMS/HCC); Severe obesity (BMI >= 40) (CMS/HCC); Chronic stable angina (CMS/HCC) 10/13/2024 Travel 09/23/2024 Refill [facility] [address] [place] [address] Kassie Lauren MD Benign essential hypertension 09/20/2024 Refill [facility] [address] [place] [address] Kassie Lauren MD BMI 38.0-38.9,adult; Class 2 severe obesity due to excess calories with serious comorbidity and body mass index (BMI) of 38.0 to 38.9 in adult ([facility]) 09/07/2024 Refill [facility] [address] [place] [address] Kassie Lauren MD Pruritic intertrigo 08/24/2024 4:00 PM EST Office Visit [facility] [address] [place] [address] Kassie Lauren MD Benign essential hypertension (Primary Dx); BMI 38.0-38.9,adult; Dietary counseling; Exercise counseling; Class 2 severe obesity due to excess calories with serious comorbidity and body mass index (BMI) of 38.0 to 38.9 in adult ([facility]) 08/24/2024 Travel 08/17/2024 Travel from Last 3 Months Immunizations Name Administration Dates Next Due Influenza, IIV3, injectable 04/26/2014 Social History Tobacco Use Types Packs/Day Years Used Date Smoking Tobacco: Former Cigarettes Smokeless Tobacco: Never Tobacco Cessation:Counseling Given: No Depression Answer Date Recorded Patient Health Questionnaire-9 [...] Orientation Straight 05/11/2022 10 :21 AM EDT Last Filed Vital Signs Vital Sign Reading [...] Mass Index 37.6 10/20/2024 3:54 PM EDT Plan of Treatment Upcoming Encounters Date Type Department Care Team (Late st Contact Info) Description 01/01/2025 4:00 PM EDT Office Visit [facility] [address] [place] [address] Kassie Lauren MD [address] [place] [address] Health Maintenance Due Date Last Done Comments CT Colonography 1969 FIT DNA/Cologuard 1969 FIT 1969 FOBT 1969 Sigmoidoscopy 1969 DTaP/Tdap/Td Vaccines (1 - Tdap) 1988 Hepatitis B Vaccines (1 of 3 - 19+ 3-dose series) 1988 Pneumococcal Vaccine: 50+ Years (1 of 2 - PCV) 1988 Zoster Vaccines (1 of 2) 2019 COVID-19 Vaccine ( - 2023-2 5 season) 2024 Influenza Vaccine (#1) 2024 04/26/2014 Alcohol/Substance Use Screening 10/20/2025 10/20/2024 Depression Screening 10/20/2025 10/20/2024, 10/20/2024 SDOH Screening 10/20/2025 10/20/2024 Tobacco Screening 10/20/2025 10/20/2024 Lipid Panel 01/06/2026 01/06/2021 Colonoscopy 05/10/2033 05/10/2023 Colorectal Cancer Screening 05/10/2033 RSV Patients and Patients Aged 60 years or older (1 - 1-dose 75+ series) 2044 Hepatitis C Screening Completed 09/12/2019 HIV Screening Completed 01/06/2021 HIB Vaccines Aged Out No longer eligi ble based on patient's age to complete this topic HPV Vaccines Aged Out No longer eligi ble based on patient's age to complete this topic Hepatitis A Vaccines Aged Out No long er eligible based on patient's age to complete this topic IPV Vaccines Aged Out No longer eligi ble based on patient's age to complete this topic Meningococcal Vaccine Aged Out No fabrice kayley eligible based on patient's age to complete this topic RSV under 20 months Aged Out No longe r eligible based on patient's age to complete this topic Rotavirus Vaccines Aged Out No longer eligible based on patient's age to complete this topic Procedures Procedure Name Priority Date/Time Associated Diagnosis Comments COLONOSCOPY Routine 05/10/2023 HIV 1/2 ANTIGEN/ANTIBODY, FOURTH GENERATION W/RFL Routine 01/06/2021 9:33 AM EDT LIPID PANEL, STANDARD Routine 01/06/2021 9:33 AM EDT ZZZ HISTORICAL HEPATITIS C ANTIBODY RFLX Routine 09/12/2019 9:25 AM EST from Last 3 Months or Most Recently Relevant to Health Maintenance Results * (ABNORMAL) Colonoscopy (05/10/2023) Anatomical Region Laterality Modality Endoscopy Narrative 05/10/2023 Hyperplastic polyp of the descending colon us Kassie Lauren MD ENDOSCOPY PROCEDURE ORDERAB LES Final Result * HIV 1/2 ANTIGEN/ANTIBODY,FOURTH GENERATION W/RFL (01/06/2021 9:33 AM EDT) Pathologist [facility] HIV-1/2 ANTIGEN AND ANTIBODIES, 4TH GENERATION W/ REFLEX NON-REACT AMADOR NON-REACT AMADOR [facility] Comment: HIV-1 antigen and HIV-1/HIV-2 antibodies were not detected. There is no laboratory evidence of HIV infection. ?? PLEASE NOTE: This information has been disclosed to you from records whose confidentiality may be protected by state law. ??If your state requires such protection, then the state law prohibits you from making any further disclosure of the information without the specific written consent of the person to whom it pertains, or as otherwise permitted by law. A general authorization for the release of medical or other information is NOT sufficient for this purpose. ? For additional information please refer to http://education.Edupath/faq/MBH896 (This link is being provided for informational/ educational purposes only.) ? The performance of this assay has not been clinically validated in patients less than 2 years old. ?? 01/06/2021 9:33 AM EDT Bam Schmidt MD LAB BLOOD ORDERABL ES Final Result Performing Organization Address City/State/[facility] Co de Phone Number [facility] [address] * LIPID PANEL, STANDARD (01/06/2021 9:33 AM EDT) [facility] Chol/HDLC Ratio 3.4 <5.0 (calc) [facility] Cholesterol, Total 144 <200 mg/dL [facility] HDL Cholesterol 42 > OR = 40 mg/dL [facility] LDL Cholesterol 83 mg/dL (calc) [facility] Comment: Reference range: <100 ?? Desirable range <100 mg/dL for primary prevention; ?? <70 mg/dL for patients with CHD or diabetic patients ?? with > or = 2 CHD risk factors. ?? LDL-C is now calculated using the Donna ?? calculation, which is a validated novel method providing ?? better accuracy than the Friedewald equation in the ?? estimation of LDL-C. ?? Jose JACK et al. MICHAEL. 2013;310(19): 6114-7654 ?? (http://education.Sensopia.[employer]/faq/MNF603) Non-HDL Cholesterol 102 <130 mg/dL (calc) [facility] Comment: For patients with diabetes plus 1 major ASCVD risk ?? factor, treating to a non-HDL-C goal of <100 mg/dL ?? (LDL-C of <70 mg/dL) is considered a therapeutic ?? option. Triglycerides 94 <150 mg/dL [facility] 01/06/2021 9:33 AM EDT us Bam Schmidt MD LAB BLOOD ORDERABL ES Final Result Performing Organization Address [facility] de Phone Number [facility] [address] * HEPATITIS C ANTIBODY RFLX (09/12/2019 9:25 AM EST) HEPATITIS C ANTIBODY NONREACTIVE NONREACTIVE [facility] Comment: Antibodies to HCV not detected; does not exclude early acute HCV infection. 09/12/2019 9:25 AM EST us Kassie Lauren MD HISTORICAL/NON ORDERABLE LA BS Final Result Performing Organization Address [facility] de Phone Number [facility] [address] from Last 3 Months or Most Recently Relevant to Health Maintenance Insurance [facility] Care Teams Registered Dental Assistant Rda Relationship Specialty Start Date End Date Kassie Lauren MD [address] [place] [address] PCP - General Internal Medicine 07/12/18
--- OUTSIDE RECORDS SUMMARY | 2024-10-23 08:43 | XMS_ITS | Encounter Summary ---
Author Organization [employer] Address [address] [facility] 7 [place] [address] Care Team Providers Care Logistics Team Lead Name Role Phone Kassie Lauren MD Primary Care Provider [phone] Reason for Visit * Reason Comments Med Refill Encounter Details Date Type Department Care Team ([facility] st Contact Info) Description 02/04/2024 Refill [facility] [address] [place] [address] Leidy Wilder MD [address] [place] [address] Benign essential hypertension Social History Tobacco Use Types Packs/Day Years [...] t he electric, gas, oil or water Rx Network threatened to shut off services in your [...] Description 01/01/2025 4:00 PM EDT Office Visit [facility] [address] [place] [address] Kassie Lauren MD [address] [place] [address] documented as of this encounter Visit Diagnoses Diagnosis Benign essential hypertension Essential hypertension, benign documented in this encounter Additional Health Concerns Assessment Noted Time PHQ-9 Depression Total Score: 0 11/03/19 23 2:16 PM EDT documented as of this encounter Care Teams Logistics Team Lead Relationship Specialty Start Date End Date Kassie Lauren MD [address] [place] [address] PCP - General Internal Medicine 07/12/18 documented as of this encounter
--- OUTSIDE RECORDS SUMMARY | 2024-10-23 08:43 | XMS_ITS | Encounter Summary ---
Author Organization [email or web address] Address [address] [facility] [address], [place] [address] Care Team Providers Care Metallurgical Technician Name Role Phone Kassie Lauren MD Primary Care Provider [phone] Reason for Visit * Reason Comments Med Refill Encounter Details Date Type Department Care Team ([facility] st Contact Info) Description 06/27/2024 Refill [facility] [address] [place] [address] Kassie Lauren MD [address] [place] [address] Benign essential hypertension Social History Tobacco Use [...] 01/01/2025 4:00 PM EDT Office Visit [facility] [address] [place] [address] Kassie Lauren MD [address] [place] [address] documented as of this encounter Visit Diagnoses Diagnosis Benign essential hypertension Essential hypertension, benign documented in this encounter Additional Health Concerns Assessment Noted Time PHQ-9 Depression Total Score: 0 11/03/19 23 2:16 PM EDT documented as of this encounter Care Teams Metallurgical Technician Relationship Specialty Start Date End Date Kassie Lauren MD [address] [place] [address] PCP - General Internal Medicine 07/12/18 documented as of this encounter
--- OUTSIDE RECORDS SUMMARY | 2024-10-23 08:43 | XMS_ITS | Encounter Summary ---
Author Organization [employer] Address [address] [facility] [address] [address] Care Team Providers Care Network Operations Center Engineer Name Role Phone Kassie Lauren MD Primary Care Provider [phone] Reason for Visit * Reason Comments Med Refill Encounter Details Date Type Department Care Team ([facility] st Contact Info) Description 06/27/2024 Refill [facility] [address] [place] [address] Kassie Lauren MD [address] [place] [address] Benign essential hypertension Social History Tobacco Use [...] 01/01/2025 4:00 PM EDT Office Visit [facility] [address] [place] [address] Kassie Lauren MD [address] [place] [address] documented as of this encounter Visit Diagnoses Diagnosis Benign essential hypertension Essential hypertension, benign documented in this encounter Additional Health Concerns Assessment Noted Time PHQ-9 Depression Total Score: 0 11/03/19 23 2:16 PM EDT documented as of this encounter Care Teams Network Operations Center Engineer Relationship Specialty Start Date End Date Kassie Lauren MD [address] [place] [address] PCP - General Internal Medicine 07/12/18 documented as of this encounter
--- OUTSIDE RECORDS SUMMARY | 2024-10-23 08:43 | XMS_ITS | Encounter Summary ---
Author Organization [employer] Address [address] [facility] 7t [place] [address] Care Team Providers Care Farm Operations Manager Name Role Phone Kassie Lauren MD Primary Care Provider [phone] Encounter Details Date Type Department Care Team (Latest Contact Info) Description 10/20/2024 Travel Social History Tobacco Use Types Packs/Day Years [...] Description 01/01/2025 4:00 PM EDT Office Visit [facility] [address] [place] [address] Kassie Lauren MD [address] [place] [address] documented as of this encounter Visit Diagnoses Not on filedocumented in this encounter Additional Health Concerns Assessment Noted Time PHQ-9 Depression Total Score: 5 10/21/19 25 4:37 PM EDT documented as of this encounter Care Teams Farm Operations Manager Relationship Specialty Start Date End Date Kassie Lauren MD [address] [place] [address] PCP - General Internal Medicine 07/12/18 documented as of this encounter
[2024-10-23 14:43] LABS: Estimated Average Glucose 108 mg/dL; Hemoglobin A1C 141.3626 umol/L; Hemoglobin A1c % 5.4 % (<6.0); Total Hemoglobin (HGBA1C) 3981.9219 umol/L
[2024-10-23 14:49] LABS: Alanine Aminotransferase 41 U/L (0-40); Alkaline Phosphatase 100 U/L (39-117); Anion Gap 9 (12-20); Aspartate Amino Transferase 38 U/L (5-37); Bilirubin Total 0.5 mg/dL (0.0-1.0); Blood Urea Nitrogen 24 mg/dL (9-16); Calcium 9.3 mg/dL (8.4-10.2); Carbon Dioxide 27 mmol/L (22-29); Chloride 109 mmol/L (96-108); Estimated Glomerular Filt Rate > 60; Glucose Random 101 mg/dL (60-115); Potassium 3.9 mmol/L (3.3-5.1); Sodium 141 mmol/L (135-145); Total Protein 6.9 g/dL (6.5-8.0)
[2024-10-23 15:37] LABS: Vitamin B12 > 2000 pg/mL (200-900)
== END 2024-10-23 08:24 | disposition home or self-care (01) ==
LOC: HO.CHCLDS 08:23
PROVIDERS: Visit Provider Internal Medicine
DX: R20.2 Paresthesia of skin (principal); Z13.1 Encounter for screening for diabetes mellitus
CPT/HCPCS: 36415; 80053; 82607; 82746; 83036; 84207

== ENCOUNTER 2024-11-15 10:02 | Outpatient (REF) | payer OTHER, SELFPAY ==
--- NOTE | ~2024-11-15 | XR_ITS ---
CLINICAL HISTORY: NECK PAIN WITH TINGLING OF RIGHT UPPER LIMB --- Additional Notes or Special Instruc tions: WO Cervical spine four views Comparison: None Findings: Lower cervical spine never well visualized. No acute fracture or dislocation. Posterior alignment is normal. Moderate degenerative change. No radiopaque foreign bodies. Impression: No acute processes This document has been electronically signed by: Jose Rod MD on 11/15/2024 20:04:38
[2024-11-15 10:33] LABS: INTERNATIONAL NORM RATIO 0.9 (0.9-1.1); Prothrombin Time 10.3 SEC (10.9-12.4)
[2024-11-15 11:00] LABS: Iron 83 mcg/dL (45-160); Percent Iron Saturation 27 % (15-50); Total Iron Binding Capacity 303 mcg/dL (228-428); Unsaturated Iron Binding 220 ug/dL
[2024-11-15 11:13] LABS: Ferritin 101 ng/mL (20-250)
[2024-11-15 11:24] LABS: HBc Num1 0.09 S/CO (0.00-0.79); HBsAGNum1 0.29 S/CO (0.00-0.99); Hepatitis A Antibody IgM 0.19 Index (0-0.79); Hepatitis B Core Antibody Nonreactive (Nonreactive); Hepatitis B Surface Antigen Negative (Negative); ~HepC Num1 0.08 S/CO (0.00-0.79); ~Hepatitis A Antibody IgM Nonreactive (Nonreactive); ~Hepatitis B Surface Antibody NONREACTIVE (Nonreactive); ~Hepatitis C Antibody Nonreactive (Nonreactive)
[2024-11-16 07:08] LABS: IgA 139 mg/dL (47-310); IgG 1064 mg/dL (600-1640); IgM 202 mg/dL (50-300)
[2024-11-16 07:28] LABS: Ceruloplasmin 23 mg/dL (14-30)
== END 2024-11-15 10:03 | disposition home or self-care (01) ==
LOC: HO.XRAY 10:02
PROVIDERS: PCP Internal Medicine; Visit Provider Internal Medicine
DX: N52.01 Erectile dysfunction due to arterial insufficiency (principal); R68.82 Decreased libido; M54.2 Cervicalgia; R74.01 Elevation of levels of liver transaminase levels
CPT/HCPCS: 36415; 72040; 82390; 82728; 82784; 83540; 85610; 86704; 86706; 86709; 86803; 87340

== ENCOUNTER → 2024-11-15 10:26 | Outpatient (BNV) | payer OTHER, SELFPAY | PROVIDERS: PCP Internal Medicine; Visit Provider Radiology Diagnostic Radiology | DX: M54.2 Cervicalgia (principal) | CPT/HCPCS: 72040 ==

== ENCOUNTER 2024-11-15 15:04 | Outpatient (AMB) | payer OTHER, SELFPAY ==
--- NOTE | 2024-11-15 15:28 | MHC.OFFVIS ---
Intake Visit Reasons: 6m follow up Intake Note: Patient is present for 6M F/U Urology Medication:TADALAFIL Antibiotic Allergy:NONE Blood Thinner:ASPIRIN Paper Pattern Inspector Required: No Allergies hydrochlorothiazide Allergy (Severe, Verified 12/15/24 11:26) TONGUE SWELLING lisinopril (LISINOPRIL) Allergy (Severe, Verified 12/15/24 11:26) TONGUE SWELLING HPI Comments Details: Sascha is a pleasant male. He is a patient of Dr. Schmidt. He is seen for the following urologic conditions - erectile dysfunction - scrotal itch Six-month follow-up Continue with PD5s for erectile issues Continue Aveeno eczema products Erectile dysfunction Able to attain but cannot maintain erection without oral medications Tadalafil 5 mg daily with 20 on demand successful PSA - 03/01 1.3 Associated hypertension and dyslipidemia Prior history of UTI and genital herpes Continue with yearly evaluation Scrotal itch Diflucan 2 doses Imipramine 50 mg for 1 month to allow healing PFSH Medical History ROSS (obstructive sleep apnea) Personal history of nicotine dependence Coronary artery disease Erectile dysfunction BPH (benign prostatic hyperplasia) HTN (hypertension) Surgical History Hx of heart artery stent History of left inguinal hernia repair History of ventral hernia repair History of cardiac cath History of appendectomy Family History Maternal Grandmother Intestinal cancer Sinus malignant neoplasm Maternal Grandfather Cancer Social History Are you a primary health care law specialist to a significant other at home: Yes (son, will have post-op assistance) Do you presently have visiting nurse or other home services: No Alcohol intake: current Alcohol intake frequency: holidays/special occasions only Patient Tobacco Use Status: Former Tobacco user Tobacco use type: Cigarette Years Smoked: (onset 12yo, 1ppd x 35yrs, 35pyh, quit 2017) Review of Systems Const Denies chills and Denies fever(s) Card Reports no additional complaints and Denies syncope Resp Denies cough GI Denies abdominal pain and Denies heartburn Reports as per HPI and Denies change in libido Neuro Denies syncope Psych Denies change in libido Endo Denies change in libido Physical Exam Const General: cooperative, healthy appearing, comfortable and no acute distress Orientation/consciousness: patient oriented x3 HEENT Face and sinus: Yes normal facial exam Mouth: moist mucous membranes Neck Neck: Yes normal visual inspection, Yes full ROM and Yes trachea midline Chest Chest palpation & inspection: normal inspection of the chest Resp Effort & Inspection: normal respiratory effort, able to speak in complete sentences and no respiratory distress GI Inspection: Yes normal to inspection Back/Spine/Pelvis Cervical Spine: normal cervical lordosis Thoracic/Lumbar Spine: thoracic and lumbar spine normal to inspection Skin General skin exam: no rashes or lesions noted Neuro General: patient oriented x3, gait normal, tone normal and moves all extremities Extrem General: Yes normal to inspection and Yes capillary refill normal Assessment & Plan Assessment & Plan (1) Erectile dysfunction: Code(s): N52.9 - Male erectile dysfunction, unspecified Category: Medical Qualifiers: Erectile dysfunction type: vasculogenic Vasculogenic erectile dysfunction type: due to arterial insufficiency Qualified Code(s): N52.01 - Erectile dysfunction due to arterial insufficiency (2) Low libido: Code(s): R68.82 - Decreased libido Category: Medical Plan Check lab work Orders: Orders Lutenizing Hormone 11/15/24 N52.01 - Erectile dysfunction due to arterial insufficiency Testosterone, Free/Total 11/15/24 N52.01 - Erectile dysfunction due to arterial insufficiency Patient Instructions: This note is constructed using voice recognition software. While every effort has been made to ensure accuracy geological aide errors may have been included. Imaging studies, laboratory and physical exam results were discussed and reviewed in detail. No major barriers to patient understanding were identified. An opportunity to ask questions regarding the treatment plan was provided. All questions were answered. The patient expressed understanding and agreement with the above treatment plan. The patient is aware they should contact our office by phone for worsening of their current condition or the appearance of new urologic symptoms. Compliance is encouraged with any medications and followup testing that is ordered. It is a privilege to participate in the urologic care of your patient. If you have any questions or concerns regarding treatment for the above conditions, or other urologic issues, please do not hesitate to contact me. The office telephone contact is [phone]. Sincerely, Dr Cb Thayer MD, [facility] - Urology Compassionate Specialist Care for the Genitourinary System Coding Level of Care Code Est Pt Level 3 (93543) Complex EM visit Add On G2211 Diagnoses Erectile dysfunction due to arterial insufficiency N52.01 Erectile dysfunction type: vasculogenic Vasculogenic erectile dysfunction type: due to arterial insufficiency Low libido R68.82
--- OUTSIDE RECORDS SUMMARY | 2024-11-15 16:05 | XMS_ITS | Encounter Summary ---
Author Organization [employer] Address [address] [facility] [address] [address] Care Team Providers Care Operator Cavity Pump Name Role Phone Kassie Lauren MD Primary Care Provider [phone] Encounter Details Date Type Department Care Team ([facility] Contact Info) Description 06/30/2024 Orders Only [facility] [address] [place] [address] Kassie Lauren MD [address] [place] [address] Social History Tobacco Use Types Packs/Day Years [...] [facility] [address] [place] [address] Kassie Lauren MD [address] [place] [address] documented as of this encounter Visit Diagnoses Not on filedocumented in this encounter Additional Health Concerns Assessment Noted Time PHQ-9 Depression Total Score: 0 11/03/19 23 2:16 PM EDT documented as of this encounter Care Teams Operator Cavity Pump Relationship Specialty Start Date End Date Kassie Lauren MD [address] [place] [address] PCP - General Internal Medicine 07/12/18 documented as of this encounter
--- OUTSIDE RECORDS SUMMARY | 2024-11-15 16:05 | XMS_ITS | Encounter Summary ---
Author Organization [employer] Address [address] [address] Care Team Providers Care Lead Database Developer Name Role Phone Kassie Lauren MD Primary Care Provider [phone] Reason for Visit * Reason Onset Date Comments Appointment Request 07/09/2023 Encounter Details Date Type Department Care Team ([facility] st Contact Info) Description 07/09/2023 Telephone [facility] [address] [place] [address] Kassie Lauren MD [address] [place], [place] [phone] Appointment Request Social History Tobacco Use Types [...] t he electric, gas, oil or water [employer] threatened to shut off services in your [...] to appointment request. Please contact pt at [phone] * Telephone Encounter - Carlos Pradhan - 07/09/2023 11:22 AM EST Tc from pt requesting a Tele visit with pcp regarding Colonoscopy and wants to check up with his provider. Please contact pt at [phone]. documented in this encounter Plan of Treatment Upcoming Encounters Date Type Department Care Team ([facility] st Contact Info) Description 01/01/2025 4:00 PM EDT Office Visit [facility] P[facility] [address] [place] [address] Kassie Lauren MD [address] [place] [address] documented as of this encounter Visit Diagnoses Not on filedocumented in this encounter Additional Health Concerns Assessment Noted Time PHQ-9 Depression Total Score: 0 11/03/19 23 2:16 PM EDT documented as of this encounter Care Teams Lead Database Developer Relationship Specialty Start Date End Date Kassie Lauren MD [address] [place] [address] PCP - General Internal Medicine 07/12/18 documented as of this encounter
--- OUTSIDE RECORDS SUMMARY | 2024-11-15 16:05 | XMS_ITS | Encounter Summary ---
Author Organization [employer] Address [address] [place] [address] Care Team Providers Care Waitangi Tribunal Member Name Role Phone Kassie Lauren MD Primary Care Provider [phone] Reason for Visit * Reason Comments Med Refill Encounter Details Date Type Department Care Team ([facility] st Contact Info) Description 10/16/2024 Refill [facility] & PEDS [address] [place] [address] Kassie Lauren MD [address] [place] [address] BMI 38.0-38.9,adult; Class 2 severe obesity due [...] 4:00 PM EDT Office Visit [facility] [address] [place], [place] [phone] Kassie Lauren MD [address] [place] [address] documented as of this encounter Visit Diagnoses [...] documented as of this encounter Care Teams Waitangi Tribunal Member Relationship Specialty Start Date End Date Kassie Lauren MD [address] [place] [address] PCP - General Internal Medicine 07/12/18 documented as of this encounter
--- OUTSIDE RECORDS SUMMARY | 2024-11-15 16:05 | XMS_ITS | Encounter Summary ---
Author Organization [employer] Address [address] [address] Care Team Providers Care Brand Strategist Name Role Phone Kassie Lauren MD Primary Care Provider [phone] Reason for Visit * Reason Onset Date Comments Nurse Triage 11/09/2023 Encounter Details Date Type Department Care Team (Late st Contact Info) Description 11/09/2023 Telephone [facility] [address] [place] [address] Kassie Lauren MD [address] [place], [place] [phone] Nurse Triage Social History Tobacco Use Types [...] t he electric, gas, oil or water [employer] threatened to shut off services in your [...] Description 01/01/2025 4:00 PM EDT Office Visit [facility] PED[facility] [address] [place] [address] Kassie Lauren MD [address] [place] [address] documented as of this encounter Visit Diagnoses Not on filedocumented in this encounter Additional Health Concerns Assessment Noted Time PHQ-9 Depression Total Score: 0 11/03/19 23 2:16 PM EDT documented as of this encounter Care Teams Brand Strategist Relationship Specialty Start Date End Date Kassie Lauren MD [address] [place] [address] PCP - General Internal Medicine 07/12/18 documented as of this encounter
--- OUTSIDE RECORDS SUMMARY | 2024-11-15 16:05 | XMS_ITS | Encounter Summary ---
Author Organization [employer] Address 75 [facility] 7 [place] [address] Care Team Providers Care Laborer Tin Can Name Role Phone Kassie Lauren MD Primary Care Provider [phone] Encounter Details Date Type Department Care Team ([facility] st Contact Info) Description 11/09/2023 Orders Only [facility] MED & PEDS [address] [place] [address] Kassie Lauren MD [address] [place] [address] Pruritus scroti (Primary Dx); Benign essential hypertension; [...] EDT Office Visit [facility] [address] [place], [place] [phone] Kassie Lauren MD [address] [place] [address] documented as of this encounter Procedures Procedure Name Priority Date/Time Associated Diagnosis Comments URINALYSIS, COMPLETE Routine 11/25/2023 8:38 AM EDT Microscopic hematuria BASIC METABOLIC PANEL Routine 11/25/2023 8:30 AM EDT Benign essential hypertension URINALYSIS, COMPLETE Routine 11/09/2023 2:39 PM EDT Pruritus scroti documented in this encounter Results * Urinalysis Complete (11/25/2023 8:38 AM EDT) Color Urine Yellow [facility] Appearance Urine Clear [facility] PH 5.5 5.0 - 9.0 [facility] Glucose Urine UA Negative Negative mg/dL [facility] Urine Blood Negative Negative [facility] Specific [place] - Urine 1.010 1.005 - 1.025 [facility] Urine Protein Negative Neg-Trace mg/dL [facility] Urine Ketones Negative Negative mg/dL [facility] Nitrite Urine Negative Negative [facility] Leukocyte Esterase Urine Negative Negative [facility] RBC Urine 0-2 0 - 2 /HPF [facility] Urine WBC 0-5 0 - 5 /HPF [facility] Urine Squamous Epithelial Cell 0-2 0 - 2 /HPF [facility] Urine Bacteria None Seen None Seen [facility] Hyaline Casts, Urine 0-2 0 - 2 /LPF [facility] Urine (Urine, Random) 11/25/2023 8:38 AM EDT 11/25/2023 2:30 PM EDT us Kassie Lauren MD LAB URINE ORDERABLES Final Result Performing Organization Address City/[facility]/ZIP Co de Phone Number [facility] [address] [place] [address] [phone] * (ABNORMAL) Basic Metabolic Panel (11/25/2023 8:30 AM EDT) Sodium 144 135 - 145 mmol/L [facility] Potassium 3.9 3.3 - 5.1 mmol/L [facility] Chloride 105 96 - 108 mmol/L [facility] Carbon Dioxide 25 22 - 29 mmol/L [facility] Anion Gap 18 12 - 20 [facility] Urea Nitrogen (BUN) 17(H) 9 - 16 mg/dL [facility] Creatinine, Serum 1.00 0.5 - 1.4 mg/dL [facility] Estimated Glomerular Filt Rate >60 [facility] Comment:NOTE: For -Am erican individuals, multiply the result by 1.210.Chronic Kidney Disease: Estimated GFR < 60 mL/min/[id number] Kidney Disease: Estimated GFR < 15 mL/min/1.73m2 Glucose 90 60 - 115 mg/dL [facility] Calcium 9.4 8.4 - 10.2 mg/dL [facility] Blood Venous blood specimen / Unknown 11/25/2023 8:30 AM EDT 11/25/2023 2:39 PM EDT us Kassie Lauren MD LAB BLOOD ORDERABLES Final Result [facility] [address] [place] [address] [phone] * (ABNORMAL) Urinalysis Complete (11/09/2023 2:39 PM EDT) Color Urine Dark Yellow [facility] Appearance Urine Cloudy [facility] PH 6.0 5.0 - 9.0 [facility] Glucose Urine UA Negative Negative mg/dL [facility] Urine Blood Large (3+)(A) Negative [facility] Specific [place] - Urine >=1.030(H) 1.005 - 1.025 [facility] Urine Protein Trace Neg-Trace mg/dL [facility] Urine Ketones Trace Negative mg/dL [facility] Nitrite Urine Negative Negative [facility] Leukocyte Esterase Urine Moderate (2+)(A) Negative [facility] RBC Urine 11-20(A) 0 - 2 /HPF [facility] Urine WBC 21-50 0 - 5 /HPF [facility] Urine Squamous Epithelial Cell 0-2 0 - 2 /HPF [facility] Urine Bacteria None Seen None Seen [facility] Hyaline Casts, Urine 0-2 0 - 2 /LPF [facility] Urine (Urine, Random) 11/09/2023 2:39 PM EDT 11/09/2023 5:35 PM EDT Kassie Lauren MD LAB URINE ORDERABLES Final Result Performing Organization Address [facility]/ZIP Co de Phone Number [facility] [address] [place] [address] [phone] documented in this encounter Visit Diagnoses Diagnosis Pruritus scroti- Primary Pruritus of genital organs Benign essential hypertension Essential hypertension, benign Microscopic hematuria documented in this encounter Additional Health Concerns Assessment Noted Time PHQ-9 Depression Total Score: 0 11/03/19 23 2:16 PM EDT documented as of this encounter Care Teams Laborer Tin Can Relationship Specialty Start Date End Date Kassie Lauren MD [address] [place] [address] PCP - General Internal Medicine 07/12/18 documented as of this encounter
--- OUTSIDE RECORDS SUMMARY | 2024-11-15 16:05 | XMS_ITS | Encounter Summary ---
Author Organization [employer] Address [address] [place] [address] Care Team Providers Care Interlocker Maintainer Name Role Phone Kassie Lauren MD Primary Care Provider [phone] Reason for Referral * Imaging (Routine) - Authorized Specialty Diagnoses / Procedures Referred By Contac t Referred To Contact Radiology Diagnoses Transaminitis Procedures US Abdomen Complete Kassie Lauren MD [address] [place] [address] Phone: tel: fax: [address] Phone: tel: fax: Referral ID Status Reason Start Date Expiration Date V isits Requested Visits Authorized [id number] Authorized 10/23/2024 10/23/2025 1 1 Encounter Details Date Type Department Care Team (Late st Contact Info) Description 10/23/2024 Orders Only [facility] MED & PEDS [address] [place], [place] [phone] Kassie Lauren MD [address] [place], [place] [phone] Transaminitis (Primary Dx) Social History Tobacco Use Types [...] Upcoming Encounters Date Type Department Care Team ([facility] st Contact Info) Description 01/01/2025 4:00 PM EDT Office Visit [facility] MED & PEDS [address] [place] [address] Kassie Lauren MD [address] [place] [address] Scheduled Orders Name Type Priority Associated Diagnoses Orde r Schedule Hepatitis A,B,C Profile Lab Routine Transaminitis Expected: 10/23/2024, Expires: 10/23/2025 Ceruloplasmin Lab Routine Transaminitis Expected: 10/23/2024 (Approximate), Expires: 10/23/2025 US Abdomen Complete Imaging Routine Transaminitis Expected: 10/23/2024, Expires: 10/23/2025 Hepatitis B Surface Antibody, Qualitative Lab Routine Transaminitis Expected: 10/31/2024 (Approximate), Expires: 10/31/2025 Hepatitis B Core Antibody, Total Lab Routine Transaminitis Expected: 10/31/2024 (Approximate), Expires: 10/31/2025 Hepatitis B surface antigen, EIA Lab Routine Transaminitis Expected: 10/31/2024 (Approximate), Expires: 10/31/2025 Alpha 1 Antitrypsin Lab Routine Transaminitis Expected: 10/31/2024 (Approximate), Expires: 10/31/2025 ROCIO SCR, IFA W/Refl Titer/Pattern/Rheumatoid Arthritis Panel 1 Lab Routine Transaminitis Expected: 10/31/2024 (Approximate), Expires: 10/31/2025 Smooth Muscle Antibody with Reflex to Titer Lab Routine Transaminitis Expected: 10/31/2024 (Approximate), Expires: 10/31/2025 Immunoglobulins Panel, Serum Lab Routine Transaminitis Expected: 10/31/2024 (Approximate), Expires: 10/31/2025 documented as of this encounter Procedures Procedure Name Priority Date/Time Associated Diagnosis Comments HEPATITIS PANEL, GENERAL Routine 11/15/2024 10:17 AM EDT Transaminitis IRON AND TOTAL IRON BINDING CAPACITY Routine 11/15/2024 10:17 AM EDT Transaminitis PROTHROMBIN TIME-INR Routine 11/15/2024 10:17 AM EDT Transaminitis FERRITIN Routine 11/15/2024 10:17 AM EDT Transaminitis documented in this encounter Results * Hepatitis A,B,C Profile (11/15/2024 10:17 AM EDT) Hepatitis A IgM Nonreactive Nonreactive [facility] Comment:IgM antibodies to LUA V not detected; does not exclude earlyacute or recovered HAV infection. ~Hepatitis B Surface Antibody NONREACTIVE Nonreactive [facility] Comment:Nonreactive: < 8.00 mIU/mL Hepatitis B Core Antibody Nonreactive Nonreactive [facility] Hepatitis C Antibody Nonreactive Nonreactive [facility] Comment:Antibodies to HCV no t detected; does not exclude early acuteHCV infection. Hepatitis B Surface Ag Negative Negative [facility] Blood Venous blood specimen / Unknown 11/15/2024 10:17 AM EDT 11/15/2024 10:17 AM EDT us Kassie Lauren MD LAB BLOOD ORDERABLES Final Result Performing Organization Address [facility] Co de Phone Number [facility] [address] [place] [phone] * (ABNORMAL) Prothrombin Time-INR (11/15/2024 10:17 AM EDT) Prothrombin Time 10.3(L) 10.9 - 12.4 SEC [facility] INTERNATIONAL NORM RATIO 0.9 0.9 - 1.1 [facility] Comment:INTERNATIONAL NORMAL IZED RATIO (INR) REFERENCE RANGES Reference RangeFor patients not on anticoagulant therapy: 0.9 - 1.1INR ranges for oral anticoagulanttherapy:For prevention and treatment of venous thrombosis and pulmonary embolism: 2.0 - 3.0For acute myocardial infarction with aspirin therapy: 2.0 - 3.0For acute myocardial infarction without aspirin therapy: 3.0 - 4.0For patients with mechanical prosthetic heart valves: 2.5 - 3.5 Blood Venous blood specimen / Unknown 11/15/2024 10:17 AM EDT 11/15/2024 10:17 AM EDT us Kassie Lauren MD LAB BLOOD ORDERABLES Final Result Performing Organization Address [facility] Co de Phone Number [facility] [address] [place] [phone] * Ferritin (11/15/2024 10:17 AM EDT) Ferritin 101 20 - 250 ng/mL [facility] Blood Venous blood specimen / Unknown 11/15/2024 10:17 AM EDT 11/15/2024 10:17 AM EDT us Kassie Lauren MD LAB BLOOD ORDERABLES Final Result Performing Organization Address [facility] Co de Phone Number [facility] [address] [place] [address] [phone] * Iron And Total Iron Binding Capacity (11/15/2024 10:17 AM EDT) Iron 83 45 - 160 mcg/dL [facility] Total Iron Binding Capacity 303 228 - 428 mcg/dL [facility] Percent Iron Saturation 27 15 - 50 % [facility] Unsaturated Iron Binding 220 ug/dL [facility] Blood Venous blood specimen / Unknown 11/15/2024 10:17 AM EDT 11/15/2024 10:17 AM EDT us Kassie Lauren MD LAB BLOOD ORDERABLES Final Result Performing Organization Address [facility] de Phone Number [facility] [address] [place] [phone] documented in this encounter Visit Diagnoses Diagnosis Transaminitis- Primary Nonspecific elevation of levels of transaminase or lactic acid dehydrogenase (LDH) documented in this encounter Additional Health Concerns Assessment Noted Time PHQ-9 Depression Total Score: 5 10/21/19 25 4:37 PM EDT documented as of this encounter Care Teams Interlocker Maintainer Relationship Specialty Start Date End Date Kassie Lauren MD [address] [place] [phone] PCP - General Internal Medicine 07/12/18 documented as of this encounter
--- OUTSIDE RECORDS SUMMARY | 2024-11-15 16:05 | XMS_ITS | Encounter Summary ---
Author Organization [employer] Address 75 [facility] 7 [place] [address] Care Team Providers Care Smooth And Burr Worker Composites Name Role Phone Kassie Lauren MD Primary Care Provider [phone] Encounter Details Date Type Department Care Team ([facility] Contact Info) Description 11/02/2023 Telephone [facility] MED & PEDS [address] [place] [address] Kassie Lauren MD [address] [place] [address] Social History Tobacco Use Types Packs/Day Years [...] EDT Office Visit [facility] MED & PEDS [address] [place] [address] Kassie Lauren MD [address] [place] [address] documented as of this encounter Visit Diagnoses Diagnosis Pruritus scroti Pruritus of genital organs documented in this encounter Additional Health Concerns Assessment Noted Time PHQ-9 Depression Total Score: 0 11/03/19 23 2:16 PM EDT documented as of this encounter Care Teams Smooth And Burr Worker Composites Relationship Specialty Start Date End Date Kassie Lauren MD [address] [place] [address] PCP - General Internal Medicine 07/12/18 documented as of this encounter
--- OUTSIDE RECORDS SUMMARY | 2024-11-15 16:05 | XMS_ITS | Encounter Summary ---
Author Organization [employer] Address 75 [facility] [address], [place] [address] Care Team Providers Care Director Mission Name Role Phone Kassie Lauren MD Primary Care Provider [phone] Reason for Visit * Reason Comments Med Refill Encounter Details Date Type Department Care Team ([facility] st Contact Info) Description 06/27/2024 Refill [facility] [address] [place] [address] Kassie Lauren MD [address] [place] [address] Benign essential hypertension Social History Tobacco Use [...] Visit [facility] MED & PEDS [address] [place] [address] Kassie Lauren MD [address] [place] [address] documented as of this encounter Visit Diagnoses Diagnosis Benign essential hypertension Essential hypertension, benign documented in this encounter Additional Health Concerns Assessment Noted Time PHQ-9 Depression Total Score: 0 11/03/19 23 2:16 PM EDT documented as of this encounter Care Teams Director Mission Relationship Specialty Start Date End Date Kassie Lauren MD [address] [place] [address] PCP - General Internal Medicine 07/12/18 documented as of this encounter
--- OUTSIDE RECORDS SUMMARY | 2024-11-15 16:05 | XMS_ITS | Encounter Summary ---
Author Organization [employer] Address 75 [facility] [address] [address] Care Team Providers Care Senior Information Security Analyst Name Role Phone Kassie Lauren MD Primary Care Provider [phone] Encounter Details Date Type Department Care Team ([facility] Contact Info) Description 11/26/2023 Orders Only [facility] MED & PEDS [address] [place] [address] Kassie Lauren MD [address] [place] [address] Severe obesity (BMI >= 40) (CMS/HCC) (Primary [...] 4:00 PM EDT Office Visit [facility] [address] [place] [address] Kassie Lauren MD [address] [place] [address] documented as of this encounter Visit Diagnoses Diagnosis Severe obesity (BMI >= 40) (CMS/HCC)- Primary documented in this encounter Additional Health Concerns Assessment Noted Time PHQ-9 Depression Total Score: 0 11/03/19 23 2:16 PM EDT documented as of this encounter Care Teams Senior Information Security Analyst Relationship Specialty Start Date End Date Kassie Lauren MD [address] [place] [address] PCP - General Internal Medicine 07/12/18 documented as of this encounter
--- OUTSIDE RECORDS SUMMARY | 2024-11-15 16:05 | XMS_ITS | Clinical Summary ---
Author Organization [employer] Address 75 [facility] 7 [place] [address] Care Team Providers Care Bakery And Deli Sales Manager Name Role Phone Kassie Lauren MD Primary Care Provider [phone] Allergies Active Allergy Reactions Criticality Noted Date Comments Hydrochlorothiazide High 12/23/2018 Other reaction(s): Swelling of throat, Tongue swelling Lisinopril 02/20/2013 Other reaction(s): Angioedema Medications amLODIPine (Norvasc) 5 MG tablet Take 1 tablet by mouth. 05/11/20 22 Active aspirin 81 MG EC tablet Take 81 mg by mouth in the morning. 11/30/19 19 Active isosorbide mononitrate ER (Imdur) 60 MG 24 hr tablet Take 1 tablet by mouth. 03/17/20 19 Active Brilinta 90 MG tablet Take 90 mg by mouth 2 times daily. 10/10/19 23 Active gabapentin (Neurontin) 400 MG capsuleIndications :Bacterial conjunctivitis Take 1 capsule (400 mg) by mouth 3 times daily. 90 capsule 11 03/17/20 23 Active Diclofenac Sodium 1 % gelIndications:Tina n in other joint To apply to the affected areas 4 times a day 100 g 3 04/21/20 23 Active atorvastatin (Lipitor) 80 MG tablet TAKE 1 TABLET BY MOUTH EVERY DAY 30 tablet 5 07/13/19 24 Active hydrocortisone 2.5 % creamIndications:P ruritic intertrigo APPLY TOPICALLY TO THE AFFECTED AREA TWICE DAILY 28.35 g 08/27/19 24 Active gabapentin (Neurontin) 600 MG tabletIndications: Pruritus scroti Take 1 tablet (600 mg) by mouth 2 times daily. 60 tablet 11 11/01/19 24 Active atorvastatin (Lipitor) 80 MG tablet TAKE 1 TABLET BY MOUTH EVERY DAY 30 tablet 5 05/08/20 24 Active atorvastatin (Lipitor) 80 MG tabletIndications: Mixed hyperlipidemia Take 1 tablet (80 mg) by mouth Once per day. 90 tablet 3 05/08/20 24 Active losartan (Cozaar) 100 MG tabletIndications: Benign essential hypertension TAKE 1 TABLET(100 MG) BY MOUTH DAILY 90 tablet 06/28/20 24 Active losartan (Cozaar) 100 MG tabletIndications: Benign essential hypertension TAKE 1 TABLET(100 MG) BY MOUTH DAILY 90 tablet 3 06/28/20 24 Active Semaglutide-Weight Management (Wegovy) 0.25 MG/0.5ML solution auto-injectorIndic ations:Severe obesity (BMI >= 40) (CMS/HCC),Chronic stable angina (CMS/HCC) 0.25 mg once a week. 2 mL 3 06/28/20 24 Active Semaglutide-Weight Management (Wegovy) 0.5 MG/0.5ML solution auto-injectorIndic ations:BMI 38.0-38.9,adult,Cl ass 2 severe obesity due to excess calories with serious comorbidity and body mass index (BMI) of 38.0 to 38.9 in adult (CMS/HCC) ADMINISTER 0.5 MG UNDER THE SKIN 1 TIME A WEEK 2 mL 09/22/19 25 Active furosemide (Lasix) 20 MG tabletIndications: Benign essential hypertension TAKE 1 TABLET(20 MG) BY MOUTH DAILY 90 tablet 1 09/26/19 25 Active Semaglutide-Weight Management (Wegovy) 1 MG/0.5ML solution auto-injectorIndic ations:Obesity (BMI 30-39.9) 1 mg once a week. 2 mL 1 10/21/19 25 Active gabapentin (Neurontin) 800 MG tabletIndications: Tingling in extremities Take 1 tablet (800 mg) by mouth at bedtime. 30 tablet 11 10/21/19 25 026 Active hydrOXYzine pamoate (Vistaril) 50 MG capsuleIndications :Primary insomnia Take 1 capsule (50 mg) by mouth if needed at bedtime for itching. 1-2 tabs at bedtime 30 capsule 3 10/21/19 25 08/09/2 025 Active tacrolimus (Protopic) 0.1 % ointmentIndication s:Pruritus scroti Apply topically 2 times daily. 30 g 1 11/02/19 24 025 hydrOXYzine HCl (Atarax) 25 MG tabletIndications: Pruritic intertrigo TAKE 1 TABLET BY MOUTH NEEDED IN THE MORNING, AT NOON, AND AT BEDTIME FOR ITCHING 90 tablet 3 09/08/19 25 025 Discontinu ed(Therapy completed) Active Problems Problem Noted Date Diagnosed Date Chronic stable angina 11/02/2022 Benign essential hypertension 01/19/2013 Hyperlipidemia 01/19/2013 Encounters Date Type Department Care Team Description 10/23/2024 Orders Only [facility] [address] [place] [address] Kassie Lauren MD Transaminitis (Primary Dx) 10/20/2024 4:00 PM EDT Office Visit [facility] [address] [place] [address] Kassie Lauren MD BMI 38.0-38.9,adult (Primary Dx); Obesity (BMI 30-39.9); Neck pain; Tingling in extremities; Primary insomnia 10/20/2024 Travel 10/16/2024 Refill [facility] [address] [place] [address] Kassie Lauren MD BMI 38.0-38.9,adult; Class 2 severe obesity due to excess calories with serious comorbidity and body mass index (BMI) of 38.0 to 38.9 in adult (CMS/[facility]); Severe obesity (BMI >= 40) ([facility]); Chronic stable angina (CMS/[facility]) 10/13/2024 Travel 09/23/2024 Refill [facility] [address] [facility] [address] Kassie Lauren MD Benign essential hypertension 09/20/2024 Refill [facility] [address] [place] [address] Kassie Lauren MD BMI 38.0-38.9,adult; Class 2 severe obesity due to excess calories with serious comorbidity and body mass index (BMI) of 38.0 to 38.9 in adult ([facility]) 09/07/2024 Refill [facility] [address] [place] [address] Kassie Lauren MD Pruritic intertrigo 08/24/2024 4:00 PM EST Office Visit [facility] [address] [place] [address] Kassie Lauren MD Benign essential hypertension (Primary Dx); BMI 38.0-38.9,adult; Dietary counseling; Exercise counseling; Class 2 severe obesity due to excess calories with serious comorbidity and body mass index (BMI) of 38.0 to 38.9 in adult ([facility]) 08/24/2024 Travel from Last 3 Months Immunizations Name [...] 4:00 PM EDT Office Visit [facility] [address] [place] [address] Kassie Lauren MD [address] [place] [address] Health Maintenance Due Date Last Done Comments [...] older (1 - 1-dose 75+ series) 2044 HIV Screening Completed 01/06/2021 Hepatitis C Screening Completed 11/15/2024 , 09/12/2019 HIB Vaccines Aged Out No longer eligi [...] GENERAL Routine 11/15/2024 10:17 AM EDT Transaminitis PROTHROMBIN TIME-INR Routine 11/15/2024 10:17 AM EDT Transaminitis FERRITIN Routine 11/15/2024 10:17 AM EDT Transaminitis IRON AND TOTAL IRON BINDING CAPACITY Routine 11/15/2024 10:17 AM EDT Transaminitis HEMOGLOBIN A1C Routine 10/23/2024 8:24 AM EDT Tingling in extremities COMPREHENSIVE METABOLIC PANEL Routine 10/23/2024 8:24 AM EDT Tingling in extremities VITAMIN B6 Routine 10/23/2024 8:24 AM EDT Tingling in extremities VITAMIN B12/FOLATE, SERUM PANEL Routine 10/23/2024 8:24 AM EDT Tingling in extremities COLONOSCOPY Routine 05/10/2023 HIV 1/2 ANTIGEN/ANTIBODY, FOURTH GENERATION W/RFL Routine 01/06/2021 9:33 AM EDT LIPID PANEL, STANDARD Routine 01/06/2021 9:33 AM EDT from Last 3 Months or Most Recently Relevant to Health Maintenance Results * Hepatitis A,B,C Profile (11/15/2024 10:17 AM EDT) Hepatitis A IgM Nonreactive Nonreactive [facility] Comment:IgM antibodies to LUA V not detected; does not exclude earlyacute or recovered HAV infection. ~Hepatitis B Surface Antibody NONREACTIVE Nonreactive [facility] Comment:Nonreactive: < 8.00 mIU/mL Hepatitis B Core Antibody Nonreactive Nonreactive [facility] Hepatitis C Antibody Nonreactive Nonreactive [facility] Comment:Antibodies to HCV no t detected; does not exclude early acuteHCV infection. Hepatitis B Surface Ag Negative Negative [facility] Blood Venous blood specimen / Unknown 11/15/2024 10:17 AM EDT 11/15/2024 10:17 AM EDT us Kassie Lauren MD LAB BLOOD ORDERABLES Final Result [facility] [address] [place], [place] [phone] * Iron And Total Iron Binding Capacity (11/15/2024 10:17 AM EDT) Iron 83 45 - 160 mcg/dL [facility] Total Iron Binding Capacity 303 228 - 428 mcg/dL [facility] Percent Iron Saturation 27 15 - 50 % [facility] Unsaturated Iron Binding 220 ug/dL [facility] Blood Venous blood specimen / Unknown 11/15/2024 10:17 AM EDT 11/15/2024 10:17 AM EDT us Kassie Lauren MD LAB BLOOD ORDERABLES Final Result Performing Organization Address [facility]/ZIP Co de Phone Number [facility] [address] [place] [phone] * (ABNORMAL) Prothrombin Time-INR (11/15/2024 10:17 AM EDT) Prothrombin Time 10.3(L) 10.9 - 12.4 SEC [facility] INTERNATIONAL NORM RATIO 0.9 0.9 - 1.1 [facility] Comment:INTERNATIONAL NORMAL IZED RATIO (INR) REFERENCE [...] BLOOD ORDERABLES Final Result Performing Organization Address City/[facility]/ZIP Co de Phone Number [facility] [address] [place] [phone] * Ferritin (11/15/2024 10:17 AM EDT) Ferritin 101 20 - 250 ng/mL [facility] Blood Venous blood specimen / Unknown 11/15/2024 10:17 AM EDT 11/15/2024 10:17 AM EDT us Thevenin Beauzile MD LAB BLOOD ORDERABLES Final Result Performing Organization Address City/[facility]/ZIP Co de Phone Number [facility] [address] [place] [phone] * (ABNORMAL) Vitamin B12/Folate, Serum Panel (10/23/2024 8:24 AM EDT) Vitamin B12 >2,000(H ) 200 - 900 pg/mL [facility] Comment:NORMAL 200-900 PG/ML INDETERMINATE 160-199 PG/ML DEFICIENT < 160 PG/ML Folate 11.0 > or = 4.0 ng/mL [facility] Comment:Reference Values:> o r = 4.0 ng/mL< 4.0 ng/mL suggests folate deficiency Methotrexate, aminopterin and folinic acid(leucovorin) are chemotherapeutic agents whose molecularstructures are similar to folate; therefore, the Architectfolate assay cannot be used for patients using these drugs. Blood Venous blood specimen / Unknown 10/23/2024 8:24 AM EDT 10/23/2024 2:27 PM EDT Kassie Lauren MD LAB BLOOD ORDERABLES Final Result Performing Organization Address [facility] Co de Phone Number [facility] [address] [place] [phone] * Vitamin B6 (10/23/2024 8:24 AM EDT) Pathologist [facility] Vitamin B6 9.0 2.1 - 21.7 ng/mL [facility] Comment:Vitamin supplementat ion within 24 hours prior toblood draw may affect the accuracy of the results.This test was developed and its analytical performancecharacteristics have been determined by [facility] [place], [place]. It hasnot been cleared or approved by the U.S. Food and DrugAdministration. This assay has been validated pursuantto the CLIA regulations and is used for clinicalpurposes.THIS TEST WAS PERFORMED AT:[employer] [place] [id number] GIRARD MD,PHD Blood Venous blood specimen / Unknown 10/23/2024 8:24 AM EDT 10/23/2024 2:27 PM EDT us Kassie Lauren MD LAB BLOOD ORDERABLES Final Result Performing Organization Address [facility]/ZIP Co de Phone Number [facility] [address] [place] [phone] * Hemoglobin A1c (10/23/2024 8:24 AM EDT) Hemoglobin A1c 5.4 <6.0 % [facility] Comment:Hemoglobin A1C Refer ence Range Adults: 4.8 - 6.0 % Non diabetic: < 6.0 % Goal: < 7.0 %Additional Action Suggested: > 8.0 %Note: Hemoglobin A1c results are invalid for patients with abnormal amounts of HbF. Blood transfusions may impact the HbA1c concentration in the patient sample. Estimated Average Glucose 108 mg/dL [facility] Comment:eAG = Estimated ave rage glucose which is %A1C expressed asaverage glucose, using the formula of the O2C-BgpnhcjPzvdteu Glucose study (ADAG), Diabetes Care, Vol.31,#8,Feb. 2007 Blood Venous blood specimen / Unknown 10/23/2024 8:24 AM EDT 10/23/2024 2:27 PM EDT us Kassie Lauren MD LAB BLOOD ORDERABLES Final Result Performing Organization Address [facility]/ZIP Co de Phone Number [facility] [address] [place] [phone] * (ABNORMAL) Comprehensive Metabolic Panel (10/23/2024 8:24 AM EDT) Sodium 141 135 - 145 mmol/L [facility] Potassium 3.9 3.3 - 5.1 mmol/L [facility] Chloride 109(H) 96 - 108 mmol/L [facility] Carbon Dioxide 27 22 - 29 mmol/L [facility] Anion Gap 9(L) 12 - 20 [facility] Urea Nitrogen (BUN) 24(H) 9 - 16 mg/dL [facility] Creatinine, Serum 0.86 0.5 - 1.4 mg/dL [facility] Estimated Glomerular Filt Rate >60 [facility] Comment:Chronic Kidney Disea se: Estimated GFR < 60 mL/min/1.53v3Gozbds Kidney Disease: Estimated GFR < 15 mL/min/1.73m2 Glucose 101 60 - 115 mg/dL [facility] Calcium 9.3 8.4 - 10.2 mg/dL [facility] Bilirubin, Total 0.5 0.0 - 1.0 mg/dL [facility] Aspartate Amino Transferase 38(H) 5 - 37 U/L [facility] Alanine Aminotransferase 41(H) 0 - 40 U/L [facility] Total Protein 6.9 6.5 - 8.0 g/dL [facility] Albumin Level 4.0 3.5 - 5.0 g/dL [facility] Alkaline Phosphatase 100 39 - 117 U/L [facility] Blood Venous blood specimen / Unknown 10/23/2024 8:24 AM EDT 10/23/2024 2:27 PM EDT us Kassie Lauren MD LAB BLOOD ORDERABLES Final Result Performing Organization Address City/State/[facility] Co de Phone Number [facility] [address] [place] [phone] * (ABNORMAL) Colonoscopy (05/10/2023) Anatomical Region Laterality Modality Endoscopy Narrative 05/10/2023 Hyperplastic polyp of the descending colon Kassie Lauren MD ENDOSCOPY PROCEDURE ORDERAB LES Final Result * HIV 1/2 ANTIGEN/ANTIBODY,FOURTH GENERATION W/RFL (01/06/2021 9:33 AM EDT) HIV-1/2 ANTIGEN AND ANTIBODIES, 4TH GENERATION W/ REFLEX NON-REACT AMADOR NON-REACT AMADOR [facility] Comment: HIV-1 antigen and HIV-1/HIV-2 [...] ? For additional information please refer to http://[employer]/faq/KTX183 (This link is being provided for informational/ educational purposes only.) ? The performance of this assay has not been clinically validated in patients less than 2 years old. ?? 01/06/2021 9:33 AM EDT Bam Schmidt MD LAB BLOOD ORDERABL ES Final Result [facility] [address] * LIPID PANEL, STANDARD (01/06/2021 9:33 AM EDT) Chol/HDLC Ratio 3.4 <5.0 (calc) [facility] Cholesterol, Total 144 <200 mg/dL [...] ?? Jose JACK et al. MICHAEL. 2013;310(19): 6801-9504 ?? (http://education.VideoStep/faq/OBH296) Non-HDL Cholesterol 102 <130 mg/dL (calc) [facility] Comment: For patients with diabetes plus 1 major ASCVD risk ?? factor, treating to a non-HDL-C goal of <100 mg/dL ?? (LDL-C of <70 mg/dL) is considered a therapeutic ?? option. Triglycerides 94 <150 mg/dL [facility] 01/06/2021 9:33 AM EDT us Bam Schmidt MD LAB BLOOD ORDERABL ES Final Result [facility] [address] [place] [address], from Last 3 Months or Most Recently Relevant to Health Maintenance Insurance , [address] [place] [address] Care Teams Bakery And Deli Sales Manager Relationship Specialty Start Date End Date Kassie Lauern MD [address] [place] [phone] (Work) PCP - General Internal Medicine 07/12/18
--- OUTSIDE RECORDS SUMMARY | 2024-11-15 16:05 | XMS_ITS | Encounter Summary ---
Author Organization [employer] Address [address] [address] Care Team Providers Care General Repairer Name Role Phone Kassie Lauren MD Primary Care Provider [phone] Reason for Visit * Reason Comments Med Refill Encounter Details Date Type Department Care Team ([facility] st Contact Info) Description 04/21/2023 Refill [facility] [address] [place] [address] Kassie Lauren MD [address] [place], [place] [phone] Primary osteoarthritis involving multiple joints Social History [...] t he electric, gas, oil or water [employer] threatened to shut off services in your [...] Description 01/01/2025 4:00 PM EDT Office Visit [facility] PEDS [address] [place] [address] Kassie Lauren MD [address] [place] [address] documented as of this encounter Visit Diagnoses Diagnosis Primary osteoarthritis involving multiple joints documented in this encounter Additional Health Concerns Assessment Noted Time PHQ-9 Depression Total Score: 0 11/03/19 23 2:16 PM EDT documented as of this encounter Care Teams General Repairer Relationship Specialty Start Date End Date Kassie Lauren MD [address] [place] [address] PCP - General Internal Medicine 07/12/18 documented as of this encounter
--- OUTSIDE RECORDS SUMMARY | 2024-11-15 16:05 | XMS_ITS | Encounter Summary ---
Author Organization [employer] Address 75 [facility] 7 [place] [address] Care Team Providers Care Fiber Analyst Name Role Phone Kassie Lauren MD Primary Care Provider [phone] Reason for Visit * Reason Comments Med Refill Encounter Details Date Type Department Care Team ([facility] st Contact Info) Description 02/04/2024 Refill [facility]S [address] [place] [address] Leidy Wilder MD [address] [place] [address] Benign essential hypertension Social History Tobacco Use [...] t he electric, gas, oil or water [employer] threatened to shut off services in your [...] 4:00 PM EDT Office Visit [facility] & PEDS [address] [place] [address] Kassie Laurne MD [address] [place] [address] documented as of this encounter Visit Diagnoses Diagnosis Benign essential hypertension Essential hypertension, benign documented in this encounter Additional Health Concerns Assessment Noted Time PHQ-9 Depression Total Score: 0 11/03/19 23 2:16 PM EDT documented as of this encounter Care Teams Fiber Analyst Relationship Specialty Start Date End Date Kassie Lauren MD [address] [place] [address] PCP - General Internal Medicine 07/12/18 documented as of this encounter
--- OUTSIDE RECORDS SUMMARY | 2024-11-15 16:05 | XMS_ITS | Encounter Summary ---
Author Organization [employer] Address 75 [facility] [address] [address] Care Team Providers Care Manager Respiratory Care Name Role Phone Kassie Lauren MD Primary Care Provider [phone] Reason for Visit * Reason Comments Med Refill Encounter Details Date Type Department Care Team ([facility] st Contact Info) Description 06/27/2024 Refill [facility] PEDS [address] [place] [address] Kassie Lauren MD [address] [place] [address] Benign essential hypertension Social History Tobacco Use [...] Description 01/01/2025 4:00 PM EDT Office Visit [facility]EDS [address] [place] [address] Kassie Lauren MD [address] [place] [address] documented as of this encounter Visit Diagnoses Diagnosis Benign essential hypertension Essential hypertension, benign documented in this encounter Additional Health Concerns Assessment Noted Time PHQ-9 Depression Total Score: 0 11/03/19 23 2:16 PM EDT documented as of this encounter Care Teams Manager Respiratory Care Relationship Specialty Start Date End Date Kassie Lauren MD [address] [place] [address] PCP - General Internal Medicine 07/12/18 documented as of this encounter
== END 2024-11-15 16:05 | disposition home or self-care (01) ==
LOC: HO.HUSH 15:04
PROVIDERS: PCP Internal Medicine; Visit Provider Urology
DX: N52.01 Erectile dysfunction due to arterial insufficiency (principal); R68.82 Decreased libido
CPT/HCPCS: 99213; G2211

== ENCOUNTER 2024-12-06 08:01 | Outpatient (REF) | payer OTHER, SELFPAY ==
--- NOTE | ~2024-12-06 | US_ITS ---
CLINICAL HISTORY: Transaminitis US abdomen complete Comparison: None Findings: The visualized pancreas is normal. There is aneurysmal dilatation of the distal abdominal aorta measuring up to 6.4 cm in diameter. The liver is normal in size and echotexture. There is no intrahepatic bile duct dilatation. The common duct is 5 mm in diameter. The gallbladder is normal. There is no sonographic Zapien sign. The main portal vein is antegrade. The right kidney is 12.5 cm in length. The left kidney is 11.8 cm in length. There is mild splenomegaly. Spleen measures up to 13.3 cm in diameter. No ascites. IMPRESSION: 1. Fusiform aneurysmal dilatation of the distal aorta measuring up to 6.4 cm in diameter 2. Mild splenomegaly. This document has been electronically signed by: Nash Johnson MD on 12/06/2024 11:55:11
--- OUTSIDE RECORDS SUMMARY | 2024-12-06 08:04 | XMS_ITS | Encounter Summary ---
Author Organization [employer] Address 75 [facility] 7 [place] [address] Care Team Providers Care Battery Wrecker Operator Name Role Phone Kassie Lauren MD Primary Care Provider [phone] Encounter Details Date Type Department Care Team ([facility] Contact Info) Description 11/02/2023 Telephone [facility] MED & PEDS [address] [place] [address] Kassie Lauren MD [address] [place] [address] Social History Tobacco Use Types Packs/Day Years [...] Description 01/01/2025 4:00 PM EDT Office Visit [facility] MED [facility] PEDS [address] [place] [address] Kassie Lauren MD [address] [place] [address] documented as of this encounter Visit Diagnoses Diagnosis Pruritus scroti Pruritus of genital organs documented in this encounter Additional Health Concerns Assessment Noted Time PHQ-9 Depression Total Score: 0 11/03/19 23 2:16 PM EDT documented as of this encounter Care Teams Battery Wrecker Operator Relationship Specialty Start Date End Date Kassie Lauren MD [address] [place] [address] PCP - General Internal Medicine 07/12/18 documented as of this encounter
[2024-12-07 03:58] LABS: Lutenizing Hormone 8.8 mIU/mL (1.5-9.3)
== END 2024-12-06 08:02 | disposition home or self-care (01) ==
LOC: HO.US 08:01
PROVIDERS: Absent Provider Urology; PCP Internal Medicine; Visit Provider Internal Medicine
DX: R74.01 Elevation of levels of liver transaminase levels (principal); N52.01 Erectile dysfunction due to arterial insufficiency
CPT/HCPCS: 36415; 76700; 83002; 84402; 84403

== ENCOUNTER → 2024-12-06 08:07 | Outpatient (BNV) | payer OTHER, SELFPAY | PROVIDERS: Absent Provider Urology; PCP Internal Medicine; Visit Provider Radiology Diagnostic Radiology | DX: I71.40 Abdominal aortic aneurysm, without rupture, unspecified (principal) | CPT/HCPCS: 76700 ==

== ENCOUNTER 2024-12-15 11:23 | Outpatient (AMB) | payer OTHER, SELFPAY ==
--- NOTE | 2024-12-15 11:23 | MHC.OFFVIS ---
Intake Visit Reasons: 4w/Testo Intake Note: Patient is present via telehealth for 4w testo Urology Medication:TADALAFIL Antibiotic Allergy:NONE Blood Thinner:ASPIRIN Quality Control Technician Required: No Allergies hydrochlorothiazide Allergy (Severe, Verified 12/15/24 11:26) TONGUE SWELLING lisinopril [LISINOPRIL] Allergy (Severe, Verified 12/15/24 11:26) TONGUE SWELLING HPI Comments Details: Sascha is a pleasant male. He is a patient of Dr. Schmidt. He is seen for the following urologic conditions - erectile dysfunction - scrotal itch Telemedicine Evaluation 15 min Consultation [employer] Video Hormone follow-up T Labs - 12/03 T470, free 62, LH 8.8 Continue good response to daily tadalafil with on demand Understands of Has blood pressure related issues should cease Erectile dysfunction Able to attain but cannot maintain erection without oral medications Tadalafil 5 mg daily with 20 on demand successful PSA - 03/01 1.3 Associated hypertension and dyslipidemia Prior history of UTI and genital herpes Continue with yearly evaluation Scrotal itch Diflucan 2 doses Imipramine 50 mg for 1 month to allow healing PFSH Medical History ROSS (obstructive sleep apnea) Personal history of nicotine dependence Coronary artery disease Erectile dysfunction BPH (benign prostatic hyperplasia) HTN (hypertension) Surgical History Hx of heart artery stent History of left inguinal hernia repair History of ventral hernia repair History of cardiac cath History of appendectomy Family History Maternal Grandmother Intestinal cancer Sinus malignant neoplasm Maternal Grandfather Cancer Social History 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: Yes (son, will have post-op assistance) Do you presently have visiting nurse or other home services: No Alcohol intake: current Alcohol intake frequency: holidays/special occasions only Patient Tobacco Use Status: Former Tobacco user Tobacco use type: Cigarette Years Smoked: (onset 12yo, 1ppd x 35yrs, 35pyh, quit 2017) Review of Systems Const All systems reviewed & are unremarkable except as noted in HPI and below Reports no additional complaints Resp Reports no additional complaints GI Reports no additional complaints Reports as per HPI Musc Reports no additional complaints Physical Exam Telemedicine evaluation Appropriate responses Regular breathing rate and rhythm HEENT Head: Yes normal to inspection Ears: hearing grossly normal bilaterally Eyes General: appearance normal, both eyes and all related structures Neck Neck: Yes normal visual inspection Chest Chest palpation & inspection: normal inspection of the chest Resp Effort & Inspection: normal respiratory effort and able to speak in complete sentences Telehealth Telehealth Telehealth Platform: Telephone Location of provider rendering services: practice address Location of patient: address on file Patient Identification confirmed using: Name, : Yes Telehealth method: voice only Patient verbally consented to treatment: Yes Patient verbally consented to billing insurance company: Yes Patient informed of any privacy concerns related to visit: Yes Assessment & Plan Assessment & Plan (1) Erectile dysfunction: Code(s): N52.9 - Male erectile dysfunction, unspecified Category: Medical Qualifiers: Erectile dysfunction type: vasculogenic Vasculogenic erectile dysfunction type: due to arterial insufficiency Qualified Code(s): N52.01 - Erectile dysfunction due to arterial insufficiency Plan Six-month follow-up office Patient Instructions: This note is constructed using voice recognition software. While every effort has been made to ensure accuracy educational guidance counselor errors may have been included. Imaging studies, laboratory and physical exam results were discussed and reviewed in detail. No major barriers to patient understanding were identified. An opportunity to ask questions regarding the treatment plan was provided. All questions were answered. The patient expressed understanding and agreement with the above treatment plan. The patient is aware they should contact our office by phone for worsening of their current condition or the appearance of new urologic symptoms. Compliance is encouraged with any medications and followup testing that is ordered. It is a privilege to participate in the urologic care of your patient. If you have any questions or concerns regarding treatment for the above conditions, or other urologic issues, please do not hesitate to contact me. The office telephone contact is [phone]. Sincerely, Dr Cb Thayer MD, [facility] - Urology Compassionate Specialist Care for the Genitourinary System Coding Level of Care Code Tele Est Pt Level 3 (66493) Complex EM visit Add On G2211 Diagnoses Erectile dysfunction due to arterial insufficiency N52.01 Erectile dysfunction type: vasculogenic Vasculogenic erectile dysfunction type: due to arterial insufficiency
--- OUTSIDE RECORDS SUMMARY | 2024-12-15 12:09 | XMS_ITS | Encounter Summary ---
Author Organization [employer] Address [address] [facility] 7 [place] [address] Care Team Providers Care Bog Cutter Name Role Phone Kassie Lauren MD Primary Care Provider [phone] Encounter Details Date Type Department Care Team ([facility] Contact Info) Description 11/02/2023 Telephone [facility] MED & PEDS [address] [place] [address] Kassie Lauren MD [address] [place] [address] Social History Tobacco Use Types Packs/Day Years [...] [facility] MED [facility] PEDS [address] [place] [address] Kassie Lauren MD [address] [place] [address] documented as of this encounter Visit Diagnoses Diagnosis Pruritus scroti Pruritus of genital organs documented in this encounter Additional Health Concerns Assessment Noted Time PHQ-9 Depression Total Score: 0 11/03/19 23 2:16 PM EDT documented as of this encounter Care Teams Bog Cutter Relationship Specialty Start Date End Date Kassie Lauren MD [address] [place] [address] PCP - General Internal Medicine 07/12/18 documented as of this encounter
== END 2024-12-15 12:34 | disposition home or self-care (01) ==
LOC: HO.HUSH 11:23
PROVIDERS: PCP Internal Medicine; Visit Provider Urology
DX: N52.01 Erectile dysfunction due to arterial insufficiency (principal)
CPT/HCPCS: 99213

== ENCOUNTER → 2024-12-15 11:23 | Outpatient (BNVA) | payer OTHER, SELFPAY | PROVIDERS: PCP Internal Medicine; Visit Provider Urology ==

== ENCOUNTER 2025-04-16 07:14 | Outpatient (REF) | payer OTHER, SELFPAY ==
--- NOTE | ~2025-04-16 | US_ITS ---
EXAMINATION: US SOFT TISSUE HEAD AND/OR NECK CLINICAL INFORMATION: Palpable painless mass right neck submandibular region. Patient states the lump has decreased in size. COMPARISON: None available. TECHNIQUE: Linear transducer belrtán-scale and color Doppler examination with attention to the right submandibular region in the area as indicated by the patient. FINDINGS: There is no mass or abnormal fluid collection identified. The right submandibular gland appears normal. There is a normal level II, 0.6 cm short axis lymph node, with prominent fatty hilum, normal cortex, and reniform shape, correlating with the area of palpable concern. This is consistent with a benign lymph node. No additional abnormalities. US/US soft tiss head and/or neck IMPRESSION: 1. No abnormal mass, fluid collection, or suspicious abnormality. The palpable focus of concern in the right submandibular region appears to be related to a normal-appearing subcentimeter lymph node. Electronically signed by: Khang Orantes MD 04/16/2025 02:04 PM EDT RP
--- NOTE | ~2025-04-16 | CT_ITS ---
EXAMINATION: CT LOW-DOSE SCREENING CHEST WITHOUT CONTRAST CLINICAL INFORMATION: COMPARISON: None available. TECHNIQUE: Multidetector volumetric CT imaging of the chest is performed on a Siemens SOMATOM Definition scanner without contrast using low dose technique. Additional 2D coronal and sagittal reformatted images and axial 3D maximum intensity projection (MIP) images are generated on the CT workstation. This CT examination was performed using dose optimization techniques as appropriate, variously including the following: *Automated exposure control *Adjustment of mA and/or kV according to patient size (this includes techniques or standardized protocols for targeted exams where dose is matched to indication/reason for exam; i.e. extremities or head) *Use of iterative reconstruction technique CTDIvol: 2.2 mGy. FINDINGS: PULMONARY NODULES: Stable bilateral pulmonary nodules. Largest pulmonary nodules measure 6 mm in the right middle lobe axial image 103 and 4 mm in the peripheral subpleural right lower lobe axial image 122 series 5. No new pulmonary nodules. Central airways are clear. LUNGS: Lungs bilaterally symmetrically expanded. No effusion or pneumothorax. Central airways patent. MEDIASTINUM: No mediastinal, hilar or axillary adenopathy or free fluid collection. CORONARY ARTERY CALCIFICATION: Moderate THYROID GLAND: Unremarkable to the extent seen. CARDIOVASCULAR STRUCTURES: Normal heart size. Upper normal size ascending thoracic aorta measuring 4 cm. No pericardial effusion. CHEST WALL/AXILLA: Unremarkable. UPPER ABDOMEN: Included portions of the solid organs in the upper abdomen unremarkable on noncontrast imaging. OSSEOUS STRUCTURES: Degenerative changes of the spine. CT/CT lung screening IMPRESSION: Stable bilateral pulmonary nodules largest measuring 6 mm in the right middle lobe. ASSESSMENT: 1. Lung-RADS Category 2: Benign appearance or behavior of nodules. 2. Lung-RADS Category S: Negative. There are no clinically significant or potentially clinically significant findings not related to the lungs requiring urgent additional evaluation. RECOMMENDATION: Annual low-dose chest CT follow-up recommended. Electronically signed by: Irene Morales MD 04/16/2025 10:10 AM EDT
--- OUTSIDE RECORDS SUMMARY | 2025-04-16 07:18 | XMS_ITS | Encounter Summary ---
Author Organization [employer] Address [address] [facility] [address] [address] Care Team Providers Care Structures Assembler Name Role Phone Kassie Lauren MD Primary Care Provider [phone] Encounter Details Date Type Department Care Team ([facility] Contact Info) Description 11/26/2023 Orders Only [facility] MED & PEDS [address] [place] [address] Kassie Lauren MD [address] [place] [address] Severe obesity (BMI >= 40) (CMS/HCC) (Primary [...] as of this encounter Plan of Treatment Not on file documented as of this encounter Visit Diagnoses Diagnosis Severe obesity (BMI >= 40) (CMS/HCC) ([facility])- Primary documented in this encounter Additional Health Concerns Assessment Noted Time PHQ-9 Depression Total Score: 0 11/03/19 23 2:16 PM EDT documented as of this encounter Care Teams Structures Assembler Relationship Specialty Start Date End Date Kassie Lauren MD [address] [place] [id number] PCP - General Internal Medicine 07/12/18 documented as of this encounter
--- OUTSIDE RECORDS SUMMARY | 2025-04-16 07:18 | XMS_ITS | Encounter Summary ---
Author Organization [employer] Address [address] [place] [address] Care Team Providers Care Surgeon Assistant Name Role Phone Kassie Lauren MD Primary Care Provider [phone] Reason for Referral * Consultation (Urgent) - Closed Specialty Diagnoses / Procedures Referred By Contac t Referred To Contact Vascular Surgery Diagnoses Abdominal aortic aneurysm (AAA) without rupture, unspecified part (CMS/HCC) Kassie Lauren MD [address] [place] [address] Phone: tel: fax: [facility] [address] [facility] [address] [place] [address] Phone: tel: fax: Referral ID Status Reason Start Date Expiration Date V isits Requested Visits Authorized [id number] Closed Specialty Services Required 12/06/2024 12/06/2025 1 1 Encounter Details Date Type Department Care Team (Late st Contact Info) Description 12/06/2024 Orders Only [facility] MED & PEDS [address] [place], [place] [phone] Kassie Lauren MD [address] [place] [address] Abdominal aortic aneurysm (AAA) without rupture, unspecified part (CMS/HCC) (Primary Dx) Social History Tobacco Use [...] as of this encounter Plan of Treatment Scheduled Referrals Name Type Priority Associated Diagnoses Orde r Schedule Referral to Vascular Surgery Outpatient Referral Urgent Abdominal aortic aneurysm (AAA) without rupture, unspecified part ([facility]CC) Expected: 12/06/2024 (Approximate), Expires: 12/06/2025 documented as of this encounter Procedures Procedure Name Priority Date/Time Associated Diagnosis Comments TESTOSTERONE, FREE (DIALYSIS) AND TOTAL,MS Routine 12/06/2024 8:45 AM EDT Abdominal aortic aneurysm (AAA) without rupture, unspecified part ([facility]) LH Routine 12/06/2024 8:45 AM EDT Abdominal aortic aneurysm (AAA) without rupture, unspecified part ([facility]/HCC) documented in this encounter Results * Testosterone, Free (Dialysis) And Total, MS (12/06/2024 8:45 AM EDT) Testosterone, Total 470 250 - 1100 ng/dL [facility] Comment:For additional infor jose luis, please refer tohttp://education.[employer]/faq/[email or web address](This link is being provided for informational/educational purposes only.)This test was developed and its analytical performancecharacteristics have been determined by [employer] [place], [place]. It hasnot been cleared or approved by the U.S. Food and DrugAdministration. This assay has been validated pursuantto the CLIA regulations and is used for clinicalpurposes. Testosterone, Free 62.5 35.0 - 155.0 pg/mL [facility] Comment:This test was develo ped and its analytical performancecharacteristics have been determined by [employer] [place], [place]. It hasnot been cleared or approved by the U.S. Food and DrugAdministration. This assay has been validated pursuantto the CLIA regulations and is used for clinicalpurposes.THIS TEST WAS PERFORMED AT:[employer] [id number] [place] [id number] GIRARD MD,PHD 12/06/2024 8:45 AM EDT 12/06/2024 8:45 AM EDT us Generic External Data Provider LAB BLOOD ORDERAB LES Final Result [facility] [address] [place] [phone] * LH (12/06/2024 8:45 AM EDT) Lutenizing Hormone 8.8 1.5 - 9.3 mIU/mL [facility] Comment:THIS TEST WAS PERFOR MED AT:[employer] [place] [id number] MEADOWS MD 12/06/2024 8:45 AM EDT 12/06/2024 8:45 AM EDT us Generic External Data Provider LAB BLOOD ORDERAB LES Final Result [facility] [address] [place] [address] [phone] documented in this encounter Visit Diagnoses Diagnosis Abdominal aortic aneurysm (AAA) without rupture, unspecified part (CMS/HCC)- Primary documented in this encounter Additional Health Concerns Assessment Noted Time PHQ-9 Depression Total Score: 5 10/21/19 25 4:37 PM EDT documented as of this encounter Care Teams Surgeon Assistant Relationship Specialty Start Date End Date Kassie Lauren MD [address] [place] [id number] PCP - General Internal Medicine 07/12/18 documented as of this encounter
--- OUTSIDE RECORDS SUMMARY | 2025-04-16 07:18 | XMS_ITS | Encounter Summary ---
Author Organization [employer] Address [address] [facility] [address] [address] Care Team Providers Care Assistant To The Dean Name Role Phone Kassie Lauren MD Primary Care Provider [phone] Reason for Visit * Reason Comments Med Refill Encounter Details Date Type Department Care Team ([facility] st Contact Info) Description 06/27/2024 Refill [facility] MED & PEDS [address] [place] [address] Kassie Lauren MD [address] [place] [address] Benign essential hypertension Social History Tobacco Use [...] documented as of this encounter Care Teams Assistant To The Dean Relationship Specialty Start Date End Date Kassie Lauren MD [address] [place] [address] PCP - General Internal Medicine 07/12/18 documented as of this encounter
--- OUTSIDE RECORDS SUMMARY | 2025-04-16 07:18 | XMS_ITS | Encounter Summary ---
Author Organization [employer] Address [address] [place] [id number] Care Team Providers Care Tar Roofer Name Role Phone Kassie Lauren MD Primary Care Provider [phone] Reason for Visit * Reason Onset Date Comments Medication Question 03/09/2025 Encounter Details Date Type Department Care Team ([facility] st Contact Info) Description 03/09/2025 Telephone [facility] MED & PEDS [address] [place] [address] Kassie Lauren MD [address] [place] [address] Medication Question Social History Tobacco Use Types Packs/Day Years [...] encounter Miscellaneous Notes * Telephone Encounter - Delma De - 03/09/2025 10:52 AM EDT Tc from pt requesting a new script for hydrOXYzine pamoate (Vistaril) 50 MG capsule , pt requestinga 90 day supply , as 30 is not for pt does not last . Only last 15 days , pt states he spoke with provider who said will give him 90 days pt states Contact pt at [phone] documented in this encounter Plan of Treatment Not on file documented as of this encounter Visit Diagnoses Not on filedocumented in this encounter Additional Health Concerns Assessment Noted Time PHQ-9 Depression Total Score: 5 10/21/19 25 4:37 PM EDT documented as of this encounter Care Teams Tar Roofer Relationship Specialty Start Date End Date Kassie Lauren MD [address] [place] [id number] PCP - General Internal Medicine 07/12/18 documented as of this encounter
--- OUTSIDE RECORDS SUMMARY | 2025-04-16 07:18 | XMS_ITS | Encounter Summary ---
Author Organization [employer] Address [address] [facility] 7 [place] [address] Care Team Providers Care Automotive Parts Manager Name Role Phone Kassie Lauren MD Primary Care Provider [phone] Encounter Details Date Type Department Care Team ([facility] Contact Info) Description 11/02/2023 Telephone [facility] CH[facility] MED & PEDS [address] [place] [address] Kassie Lauren MD [address] [place] [address] Social History Tobacco Use Types Packs/Day Years [...] Time PHQ-9 Depression Total Score: 0 11/03/19 2:16 PM EDT documented as of this encounter Care Teams Automotive Parts Manager Relationship Specialty Start Date End Date Kassie Lauren MD [address] [place] [id number] PCP - General Internal Medicine 07/12/18 documented as of this encounter
--- OUTSIDE RECORDS SUMMARY | 2025-04-16 07:18 | XMS_ITS | Clinical Summary ---
Author Organization [employer] Address [address] [place] [address] 7 [place] [address] Care Team Providers Care Granite Block Paver Name Role Phone Kassie Lauren MD Primary Care Provider [phone] Allergies Active Allergy Reactions Criticality Noted Date [...] AREA TWICE DAILY 28.35 g 024 Active atorvastatin (Lipitor) 80 MG tabletIndications :Mixed hyperlipidemia Take 1 tablet (80 mg) by mouth Once per day. 90 tablet 3 024 Active gabapentin (Neurontin) 800 MG tabletIndications :Tingling in extremities Take 1 tablet (800 mg) by mouth at bedtime. 30 tablet 11 025 2025 Active triamcinolone (Kenalog) 0.1 % creamIndications: Stasis dermatitis Apply topically if needed in the morning and at bedtime for rash. 30 g 2 025 Active Wegovy 1.7 MG/0.75ML solution auto-injectorIndi cations:Obesity (BMI 30-39.9) INJECT 1.7 MG SUBCUTANEOUS EVERY 7 DAYS 3 mL 1 025 Active hydrOXYzine pamoate (Vistaril) 50 MG capsuleIndication s:Pruritus scroti,Stasis dermatitis 1 to 2 capsules at bedtime 180 capsule 3 025 Active Semaglutide-Weigh t Management (Wegovy) 2.4 MG/0.75ML solution auto-injectorIndi cations:Class 2 severe obesity due to excess calories with serious comorbidity and body mass index (BMI) of 38.0 to 38.9 in adult Inject 0.75 mL (2.4 mg) under the skin 1 (one) time per week. 3 mL 3 025 Active losartan (Cozaar) 25 MG tabletIndications :Benign essential hypertension Take 1 tablet (25 mg) by mouth Once per day. 30 tablet 025 2025 Active hydrOXYzine pamoate (Vistaril) 50 MG capsuleIndication s:Primary insomnia,Pruritus scroti Take 2 capsules (100 mg) by mouth if needed at bedtime for itching. 60 capsule 3 025 Active hydrOXYzine pamoate (Vistaril) 50 MG capsuleIndication s:Primary insomnia TAKE 1-2 CAPSULES BY MOUTH EVERY NIGHT AT BEDTIME NEEDED FOR ITCHING 30 capsule 3 025 2024 Discontinued(R eorder (will not trigger notification to Pharmacy)) losartan (Cozaar) 50 MG tabletIndications :Benign essential hypertension Take 1 tablet (50 mg) by mouth Once per day. 30 tablet 025 2024 Discontinued(T herapy completed) Active Problems Problem Noted Date Diagnosed Date Chronic stable angina 11/02/2022 Benign essential hypertension 01/19/2013 Hyperlipidemia 01/19/2013 Encounters Date Type Department Care Team Description 04/05/2025 4:00 PM EDT Office Visit [facility] [address] [place] [address] Kassie Lauren MD Class 2 severe obesity due to excess calories with serious comorbidity and body mass index (BMI) of 38.0 to 38.9 in adult ([facility]) (Primary Dx); Benign essential hypertension; Primary insomnia; Pruritus scroti 04/05/2025 Travel 04/04/2025 Telephone [facility] [address] [place] [address] Kassie Lauren MD Chart Prep 03/29/2025 Travel 03/16/2025 Orders Only [facility] [address] [place] [address] Kassie Lauren MD Pruritus scroti (Primary Dx); Stasis dermatitis 03/11/2025 Refill [facility] [address] [place] [address] Kassie Lauren MD Obesity (BMI 30-39.9) 03/10/2025 Refill [facility] [address] [place] [address] Kassie Lanza MD Obesity (BMI 30-39.9) 03/09/2025 Telephone [facility] [address] [place] [address] Kassie Lauren MD Medication Question 02/18/2025 Refill [facility] [address] [place] [address] Kassie Lauren MD Primary insomnia 02/07/2025 Refill [facility] [address] [place] [address] Kassie Lauren MD Benign essential hypertension 02/05/2025 Refill [facility] [address] [place] [address] Leidy Wilder MD Benign essential hypertension 01/17/2025 Telephone [facility] [address] [place] [address] Kassie Lauren MD Prior Authorization 01/15/2025 Telephone [facility] [address] [place] [address] Marisa Barrios RN Results from Last 3 Months Immunizations Immunization Administration Dates Next Due Influenza, IIV3, injectable [...] is your housing situation today? I have ojvivian schultz 10/20/[address] you [...] Sign Reading Time Taken Comments Blood Pressure 119/81 04/05/2025 3:42 PM EDT Pulse 75 04/05/2025 3:42 PM EDT Temperature 36.7 C (98 F) 01/01/2025 3:26 PM EDT Respiratory Rate 20 04/05/2025 3:42 PM EDT Oxygen Saturation 96% 04/05/2025 3:42 PM EDT Inhaled Oxygen Concentration - - Weight 122 kg (269 lb) 04/05/2025 3:42 PM EDT Height 185.4 cm (6' 1 ) 04/05/2025 3:42 PM EDT Body Mass Index 35.49 04/05/2025 3:42 PM EDT Plan of Treatment Health Maintenance Due Date Last Done Comments CT Colonography 1969 FIT DNA/Cologuard 1969 FIT 1969 FOBT 1969 Sigmoidoscopy 1969 Zoster Vaccines (1 of 2) 2019 COVID-19 Vaccine (1 - 2023-2 5 season) 2025 Disability Screening 08/17/2025 08/17/2024 Alcohol/Substance Use Screening 10/20/2025 10/20/2024 Depression Screening 10/20/2025 10/20/2024, 10/20/2024 SDOH Screening 10/20/2025 10/20/2024 Lipid Panel 01/06/2026 01/06/2021 Influenza Vaccine (#1) 2026 04/26/2014 Postp oned from 03/12/2025 (Patient Refused) DTaP/Tdap/Td Vaccines (1 - Tdap) 04/05/2026 Postponed from 03/28 (Patient Refused) Hepatitis B Vaccines (1 of 3 - 19+ 3-dose series) 04/05/2026 Postponed from 03/12 (Patient Refused) Pneumococcal Vaccine: 50+ Years (1 of 2 - PCV) 04/05/2026 Postponed from 03/12 (Patient Refused) Tobacco Screening 04/05/2026 04/05/2025 Colonoscopy 05/10/2033 05/10/2023 Colorectal Cancer Screening 05/10/2033 [...] patient's age to complete this topic Meningococcal B Vaccine Aged Out No l onger eligible based on patient's age to complete [...] GENERAL Routine 11/15/2024 10:17 AM EDT Transaminitis COLONOSCOPY Routine 05/10/2023 HIV 1/2 ANTIGEN/ANTIBODY, FOURTH GENERATION W/RFL Routine 01/06/2021 9:33 AM EDT LIPID PANEL, STANDARD Routine 01/06/2021 9:33 AM EDT from Last 3 Months or Most Recently Relevant to Health Maintenance Results * Hepatitis A,B,C Profile (11/15/2024 10:17 AM EDT) Hepatitis A IgM Nonreactive Nonreactive [facility] Comment:IgM antibodies to LUA V not detected; does not exclude earlyacute or recovered HAV infection. ~Hepatitis B Surface Antibody NONREACTIVE Nonreactive [facility] Comment:Nonreactive: < 8.00 mIU/mL Hepatitis B Core Antibody Nonreactive Nonreactive [facility] Hepatitis C Antibody Nonreactive Nonreactive [facility] Comment:Antibodies to HCV no t detected; does not exclude early acuteHCV infection. Hepatitis B Surface Ag Negative Negative [facility] Blood Venous blood specimen / Unknown 11/15/2024 10:17 AM EDT 11/15/2024 10:17 AM EDT us Kassie Lauren MD LAB BLOOD ORDERABLES Final Result [facility] [address] [place] [address] [phone] * (ABNORMAL) Colonoscopy (05/10/2023) Anatomical Region Laterality Modality Endoscopy Narrative 05/10/2023 Hyperplastic polyp of the descending colon us Kassie Lauren MD ENDOSCOPY PROCEDURE ORDERAB LES Final Result * HIV 1/2 ANTIGEN/ANTIBODY,FOURTH GENERATION W/RFL (01/06/2021 9:33 AM EDT) Pathologist [facility] HIV-1/2 ANTIGEN AND ANTIBODIES, 4TH GENERATION W/ REFLEX NON-REACT AMADOR NON-REACT AMADOR [facility] Comment: HIV-1 antigen and HIV-1/HIV-2 antibodies were not detected. There is no laboratory evidence of HIV infection. PLEASE NOTE: This information has been disclosed to you from records whose confidentiality may be protected by state law. If your state requires such protection, then the state law prohibits you from making any further disclosure of the information without the specific written consent of the person to whom it pertains, or as otherwise permitted by law. A general authorization for the release of medical or other information is NOT sufficient for this purpose. For additional information please refer to http://education.[employer].BrightArch/faq/DSE010 (This link is being provided for informational/ educational purposes only.) The performance of this assay has not been clinically validated in patients less than 2 years old. 01/06/2021 9:33 AM EDT us Bam Schmidt MD LAB BLOOD ORDERABL ES Final Result [facility] [address] * LIPID PANEL, STANDARD (01/06/2021 9:33 AM EDT) Pathologist [facility] Chol/HDLC Ratio 3.4 <5.0 (calc) [facility] Cholesterol, Total 144 <200 mg/dL [facility] HDL Cholesterol 42 > OR = 40 mg/dL [facility] LDL Cholesterol 83 mg/dL (calc) [facility] Comment: Reference range: <100 Desirable range <100 mg/dL for primary prevention; <70 mg/dL for patients with CHD or diabetic patients with > or = 2 CHD risk factors. LDL-C is now calculated using the Donna calculation, which is a validated novel method providing better accuracy than the Friedewald equation in the estimation of LDL-C. Jose SS et al. MICHAEL. 2013;310(19): 4791-5312 (http://education.SEA.BrightArch/faq/RML789) Non-HDL Cholesterol 102 <130 mg/dL (calc) [facility] Comment: For patients with diabetes plus 1 major ASCVD risk factor, treating to a non-HDL-C goal of <100 mg/dL (LDL-C of <70 mg/dL) is considered a therapeutic option. Triglycerides 94 <150 mg/dL [facility] 01/06/2021 9:33 AM EDT Bam Schmidt MD LAB BLOOD ORDERABL ES Final Result [facility] [address] from Last 3 Months or Most Recently Relevant to Health Maintenance Insurance [facility] , [address] [place] [address] Care Teams Granite Block Paver Relationship Specialty Start Date End Date Kassie Lauren MD [address] [place], [place] [phone] PCP - General Internal Medicine 07/12/18
--- OUTSIDE RECORDS SUMMARY | 2025-04-16 07:18 | XMS_ITS | Encounter Summary ---
Author Organization [employer] Address [address] [address] Care Team Providers Care Settlement Technician Name Role Phone Kassie Lauren MD Primary Care Provider [phone] Reason for Visit * Reason Onset Date Comments Nurse Triage 11/09/2023 Encounter Details Date Type Department Care Team (Late st Contact Info) Description 11/09/2023 Telephone [facility] [address] [place] [address] Kassie Lauren MD [address] [place], [place] [phone] Nurse Triage Social History Tobacco Use Types [...] t he electric, gas, oil or water [employer] threatened to shut off services in your [...] documented as of this encounter Care Teams Settlement Technician Relationship Specialty Start Date End Date Kassie Lauren MD [address] [place] [phone] PCP - General Internal Medicine 07/12/18 documented as of this encounter
--- OUTSIDE RECORDS SUMMARY | 2025-04-16 07:18 | XMS_ITS | Encounter Summary ---
Author Organization [employer] Address [address] [address] Care Team Providers Care Dog Show Judge Name Role Phone Kassie Lauren MD Primary Care Provider [phone] Reason for Visit * Reason Onset Date Comments Appointment Request 07/09/2023 Encounter Details Date Type Department Care Team ([facility] st Contact Info) Description 07/09/[address] [facility] [address] [place] [address] Kassie Lauren MD [address] [place], [place] [phone] Appointment Request Social History Tobacco Use Types [...] t he electric, gas, oil or water [email or web address] threatened to shut off services in your [...] to appointment request. Please contact pt at [phone] * Telephone Encounter - Carlos Pradhan - 07/09/2023 11:22 AM EST Tc from pt requesting a Tele visit with pcp regarding Colonoscopy and wants to check up with his provider. Please contact pt at [phone]. documented in this encounter Plan of Treatment Not on file documented as of this encounter Visit Diagnoses Not on filedocumented in this encounter Additional Health Concerns Assessment Noted Time PHQ-9 Depression Total Score: 0 11/03/19 23 2:16 PM EDT documented as of this encounter Care Teams Dog Show Judge Relationship Specialty Start Date End Date Kassie Lauren MD [address] [place] [phone] PCP - General Internal Medicine 07/12/18 documented as of this encounter
--- OUTSIDE RECORDS SUMMARY | 2025-04-16 07:18 | XMS_ITS | Encounter Summary ---
Author Organization [employer] Address [address] [place] [address] Care Team Providers Care License And Permit Specialist Name Role Phone Kassie Lauren MD Primary Care Provider [phone] Reason for Visit * Reason Comments Med Refill Encounter Details Date Type Department Care Team ([facility] st Contact Info) Description 03/10/2025 Refill [facility] [address] [place] [address] Kassie Lauren MD [address] [place] [address] Obesity (BMI 30-39.9) Social History Tobacco Use Types Packs/Day Years [...] as of this encounter Visit Diagnoses Diagnosis Obesity (BMI 30-39.9) documented in this encounter Additional Health Concerns Assessment Noted Time PHQ-9 Depression Total Score: 5 10/21/19 25 4:37 PM EDT documented as of this encounter Care Teams License And Permit Specialist Relationship Specialty Start Date End Date Kassie Lauren MD [address] [place] [id number] PCP - General Internal Medicine 07/12/18 documented as of this encounter
--- OUTSIDE RECORDS SUMMARY | 2025-04-16 07:18 | XMS_ITS | Clinical Summary ---
Author Organization [facility] Address [address] [place] [address] Care Team Providers Care Gage Maker Name Role Phone Kassie Lauren Primary Care Provider [phone] Allergies Active Allergy Reactions Criticality Noted Date Comments Hydrochlorothiazide Tongue Disorder High 12/23/2018 Other reaction(s): Swelling of throat, Tongue swelling Lisinopril Unknown 02/20/2013 Other reaction(s): Angioedema Medications amLODIPine (NORVASC) 5 mg tablet SMARTSI Tablet(s) By Mouth Daily 02/07/2025 Active aspirin 81 mg EC tablet Take 81 mg by mouth daily. Active atorvastatin (LIPITOR) 80 mg tablet Take 80 mg by mouth daily. 05/08/2024 Active furosemide (LASIX) 20 mg tablet 20 mg. 12/27/2024 Active gabapentin (NEURONTIN) 800 mg tablet Take 800 mg by mouth. 10/20/2024 Active hydrOXYzine (VISTARIL) 50 mg capsule SMARTSI -2 Capsule(s) By Mouth Every Night PRN Active isosorbide mononitrate ER (IMDUR) 60 mg tablet SMARTSI Tablet(s) By Mouth Twice Daily 12/14/2024 Active LORazepam (ATIVAN) 0.5 mg tablet SMARTSI Tablet(s) By Mouth Twice Daily PRN 02/12/2025 Active losartan (COZAAR) 50 mg tablet Take 50 mg by mouth daily. 01/01/2025 Active metoprolol tartrate (LOPRESSOR) 50 mg tablet 50 mg. 01/16/2025 Active Wegovy 0.25 mg/0.5 mL pen injector SMARTSI .25 Milligram( s) SUB-Q Once a Week 07/27/2024 Active tadalafiL (CIALIS) 5 mg tablet 02/19/2025 Active triamcinolone acetonide (KENALOG) 0.1% cream SMARTSIG:T opical Morning-Ni ght PRN Active Active Problems Problem Noted Date Diagnosed Date Coronary arteriosclerosis in [place] artery 03/28 ROSS (obstructive sleep apnea) 2025 Aneurysm of left common iliac artery 02/26/2025 Anxiety 02/12/2025 AAA (abdominal aortic aneurysm) 02/12/2025 Chronic stable angina 11/02/2022 Hypertension 03/14/2015 Hyperlipidemia 03/14/2015 Obesity, Class III, BMI 40-49.9 (morbid obesity) 03/14/2015 Depressive disorder 11/17/2006 Overview (2025): Ginger Hinojosa in [place] NEEDS [facility] FOR ATIVAN Tobacco use disorder 08/26/2006 Encounters Date Type Department Care Team Description 03/13/2025 10:30 AM EDT Follow-Up [facility] Building Vascular Surgery [address] [place] [address] Curtain Worker: Angelique Yoon PA Aneurysm of left common iliac artery (Primary Dx); Juxtarenal abdominal aortic aneurysm (AAA) without rupture 03/08/2025 7:20 AM EDT - 03/08/2025 8:19 AM EDT Surgery [facility] Heart and Vascular Interventional Lab [address] [place] [address] Stewart Vu MD Angiogram with possible use of Moderate Sedation 03/08/2025 6:03 AM EDT - 03/08/2025 12:11 PM EDT Hospital Encounter [facility] Heart and Vascular Interventional Lab [address] [place] [address] Stewart Vu MD Aneurysm of left common iliac artery Discharge Disposition: Home or Self Care (01) 03/06/2025 Orders Only [facility] Interventional Radiology [address] [place] [address] Laurent Benítez MD 03/06/2025 Orders Only [facility] Vascular Surgery [address] [place] [address] Curtain Worker: Angelique Yoon PA Juxtarenal abdominal aortic aneurysm (AAA) without rupture (Primary Dx) 03/02/2025 Telephone [facility] Vascular Surgery [address] [place] [phone] Curtain Worker: Stewart Rubin MD 02/26/2025 8:00 AM EDT Office Visit [facility] Vascular Surgery [address] [place] [address] Curtain Worker: Stewart Rubin MD Juxtarenal abdominal aortic aneurysm (AAA) without rupture (Primary Dx); Aneurysm of left common iliac artery from Last 3 Months Family History Medical History Relation Name Comments Other Mother No pertinent fa bernabe history Relation Name Status Comments Father Alive Mother Alive Social History Tobacco Use Types Packs/Day Years Used Date Smoking Tobacco: Former Cigarettes Smokeless Tobacco: Never Tobacco Cessation:Counseling Given: Not Answered Comments:: Alcohol Use Standard Drinks/Week Comments Not Currently 0 (1 standard drink = 0.6 oz pur e alcohol) Sex and Gender Information Value Date Recorded Sex Assigned at Not on file Legal Sex Male 6:51 PM EDT Gender Identity Male 03/01/2025 9:23 AM EDT Sexual Orientation Straight 03/01/2025 9: 23 AM EDT Last Filed Vital Signs Vital Sign Reading Time Taken Comments Blood Pressure 111/75 04/06/2025 7:25 AM EDT Pulse 73 04/06/2025 7:25 AM EDT Temperature 36.4 C (97.5 F) 04/06/2025 7:25 AM EDT Respiratory Rate 16 04/06/2025 7:25 AM EDT Oxygen Saturation 97% 04/06/2025 7:25 AM EDT Inhaled Oxygen Concentration - - Weight 121.6 kg (268 lb) 04/06/2025 7:25 AM EDT Height 188 cm (6' 2 ) 04/06/2025 7:25 AM EDT Body Mass Index 34.41 04/06/2025 7:25 AM EDT Plan of Treatment Upcoming Encounters Date Type Department Care Team (Latest Contact Info) Description 04/18/2025 8:05 AM EDT Hospital Encounter [facility] Operating Room [address] [place] [address] Stewart Vu MD [address] [place] [address] Juxtarenal abdominal aortic aneurysm (AAA) without rupture 04/18/2025 8:05 AM EDT Anesthesia Event [facility] Operating Room [address] [place] [address] Edd Gomez MD [address] [place] [address] [place] [address] 04/18/2025 8:05 AM EDT - 04/18/2025 1:10 PM EDT Surgery [facility] Operating Room [address] [place] [address] Stewart Vu MD [address] [place] [address] ENDOVASCULAR REPAIR VISCERAL AORTA AND INFRARENAL ABDOMINAL USING GRAFTS 4 Branches [[id number] (CPT )] 04/30/2025 8:30 AM EDT Follow-Up [facility] Vascular Surgery [address] [place] [address] Curtain Worker: Mayra Palumob NP [address] [place] [address] 05/21/2025 10:45 AM EST Appointment [facility] CT [address] [place] [phone] 05/21/2025 11:20 AM EST Follow-Up [facility] Vascular Surgery [address] [place] [address] Curtain Worker: Stewart Rubin MD [address] [place] [phone] Scheduled Procedures Name Priority Associated Diagnoses Date/Ti me ENDOVASCULAR REPAIR VISCERAL AORTA AND INFRARENAL ABDOMINAL USING GRAFTS Juxtarenal abdominal aortic aneurysm (AAA) without rupture 04/18/2025 8:05 AM EDT Health Maintenance Due Date Last Done Comments Cologuard 1969 Colon Cancer Screening 1969 Colonoscopy 1969 FOBT / Fit Test 1969 Hepatitis C Screening 1969 Sigmoidoscopy 1969 Hepatitis B Vaccines (1 of 3 - 19+ 3-dose series) 1988 Pneumococcal Vaccine: 50+ Ye ars (1 of 2 - PCV) 1988 DTaP,Tdap,and Td Vaccines (1 - Tdap) 1991 CT Lung Cancer Screening (Baseline) 2019 Zoster Vaccines (1 of 2) 2019 Alcohol/Substance Use Screening 07/12/2024 Depression Screening and Follow-Up 07/12/2024 Social Drivers of Health Shruthi ual Screening 07/12/2024 COVID-19 Vaccine (1 - 2023-2 5 season) 2025 Influenza Vaccine (#1) 2025 04/26/2014 Basic Metabolic Panel 04/06/2026 04/06/2025, 015 Diabetes Screening 04/06/2028 04/06/2025, 05/17/2015 RSV Vaccine (60+ years old a nd patients) (1 - 1-dose 75+ series) 2044 HIV Screening Completed 01/06/2021, 01/06/2021 Abdominal Aortic Aneurysm (A AA) Screening Completed 04/06/2025, 03/13/2025, 03/06/2025, Additional history exists Goals Goal Patient Goal Type Associated Problems Recent Progress Patient-Stated? Author Autogenera erwin Goal Care Plan Autogenerated Problem No Tavia Rodriguez Medical Devices Implanted Type Area Warehouse General Laborer Device Identifier Shelf Expiration Date Model / Serial / Lot System Closure And Repair Suture-Mediate d Perclose Prostyle - S0 - [id number] Implanted:Qty: 1 on 03/08/2025 by Stewart Vu MD at [facility] Implant Right: Vein [employer] [id number] 01/08/2027 [id number] / 0 / [id number] System Closure And Repair Suture-Mediate d Perclose Prostyle - S0 - [id number] Implanted:Qty: 1 on 03/08/2025 by Stewart Vu MD at [facility] Implant Right: Vein [employer] [id number] 01/08/2027 [id number] / 0 / [id number] Vascular Plug For Peripheral Vascular Occlusion 12mm - S0 - [id number] Implanted:Qty: 1 on 03/08/2025 by Stewart Vu MD at [facility] Implant Right: Vein [employer] [id number] 01/08/2029 9-AVP2-01 2 0 / [id number] Procedures * Due to [place] state law, this organization might not be sharing negative HIV tests. Procedure Name Priority Date/Time Associated Diagnosis Comments ECG 12-LEAD Routine 04/06/2025 7:32 AM EDT Pre-op evaluation Juxtarenal abdominal aortic aneurysm, without rupture SALEH TOP, URN Routine 04/06/2025 7:21 AM EDT Pre-op evaluation Juxtarenal abdominal aortic aneurysm, without rupture UA/CULTURE REFLEX Routine 04/06/2025 7:2 1 AM EDT Pre-op evaluation Juxtarenal abdominal aortic aneurysm, without rupture URINALYSIS W/REFLEX TO MICROSCOPIC & CULTURE Routine 04/06/2025 7:21 AM EDT Pre-op evaluation Juxtarenal abdominal aortic aneurysm, without rupture TYPE AND SCREEN Routine 04/06/2025 7:21 AM EDT Pre-op evaluation Juxtarenal abdominal aortic aneurysm, without rupture COMPREHENSIVE METABOLIC PANEL Routine 04/06/2025 7:21 AM EDT Pre-op evaluation Juxtarenal abdominal aortic aneurysm, without rupture CBC AUTO DIFFERENTIAL Routine 04/06/2025 7:21 AM EDT Pre-op evaluation Juxtarenal abdominal aortic aneurysm, without rupture PREPARE RBC Routine 04/02/2025 5:48 PM EDT INVASIVE VASCULAR PROCEDURE Routine 03/08/2025 8:52 AM EDT Aneurysm of left common iliac artery INVASIVE VASCULAR PROCEDURE Routine 03/08/2025 8:52 AM EDT Aneurysm of left common iliac artery POCT I-STAT CHEMISTRY 8 PANEL Routine 03/08/2025 6:51 AM EDT from Last 3 Months Results * Due to [place] state law, this organization might not be sharing negative HIV tests. * ECG 12 lead For Preop? Yes (04/06/2025 7:32 AM EDT) Ventricular Rate EKG 67 BPM MUSE EKG Atrial Rate 67 BPM MUSE EKG GA Interval 214 ms MUSE EKG QRS Interval 94 ms MUSE EKG QT Interval 440 ms MUSE EKG QTC Interval 464 ms MUSE EKG P [place] 36 degrees MUSE EKG R [place] 37 degrees MUSE EKG T Wave [place] 34 degrees MUSE EKG 04/06/2025 7:32 AM EDT 04/07/2025 2:53 PM EDT Impressions MUSE EKG - 04/07/2025 2:53 PM EDT SINUS RHYTHM WITH 1ST DEGREE A-V BLOCK OTHERWISE NORMAL ECG WHEN COMPARED WITH ECG OF 17-May-2015 11:24, GA INTERVAL HAS INCREASED Confirmed by Lilia Carter ([id number]) on 04/07/2025 2:53:44 PM Narrative Procedure Note Lilia Carter MD - 04/07/2025 IMPRESSION: SINUS RHYTHM WITH 1ST DEGREE A-V BLOCK OTHERWISE NORMAL ECG WHEN COMPARED WITH ECG OF 17-May-2015 11:24, GA INTERVAL HAS INCREASED Confirmed by Lilia Carter ([id number]) on 04/07/2025 2:53:44 PM us Karoline Martini LOG SORTER ECG ORDERABLES Final Result MUSE EKG * Saleh Top, Urine (04/06/2025 7:21 AM EDT) Extra Tube Hold for add-ons. 04/06/2025 12:05 PM EDT [facility] Comment:Auto resulted. Urine Urine specimen collection, clean catch / Unknown Non-Blood Collection / Unknown 04/06/2025 7:21 AM EDT 04/06/2025 9:46 AM EDT Karoline Martini LOG SORTER LAB URINE ORDERABLES F inal Result [facility] [address] [place] [address], * Urinalysis W/Reflex to Microscopic & Culture (04/06/2025 7:21 AM EDT) Color, Urine Light Yellow Colorless, Light Yellow, Yellow, Dark Yellow 04/06/2025 10:07 AM EDT [facility] Clarity, Urine Clear Clear 04/06/2025 10:07 AM EDT [facility] Specific [place], Urine 1.014 <1.030 04/06/2025 10:07 AM EDT [facility] pH, Urine 6.0 4.6 - 8.0 04/06/2025 10:07 AM EDT [facility] Protein, Urine Negative Negative 04/06/2025 10:07 AM EDT [facility] Glucose, Urine Normal Normal 04/06/2025 10:07 AM EDT [facility] Ketones, Urine Negative Negative 04/06/2025 10:07 AM EDT [facility] Bilirubin, Urine Negative Negative 04/06/2025 10:07 AM EDT [facility] Blood, Urine Negative Negative 04/06/2025 10:07 AM EDT [facility] Nitrite, Urine Negative Negative 04/06/2025 10:07 AM EDT [facility] Urobilinogen, Urine Normal Normal 04/06/2025 10:07 AM EDT [facility] Leukocyte Esterase, Urine Negative Negative 04/06/2025 10:07 AM EDT [facility] Urine Urine specimen collection, clean catch / Unknown Non-Blood Collection / Unknown 04/06/2025 7:21 AM EDT 04/06/2025 9:46 AM EDT us Karoline Martini LOG SORTER LAB URINE ORDERABLES F inal Result [facility] [address] [place] [address], * (ABNORMAL) CBC Auto Differential (04/06/2025 7:21 AM EDT) WBC 7.8 3.8 - 10.8 10*3/uL 04/06/2025 10:00 AM EDT [facility] RBC 5.03 4.20 - 5.80 10*6/uL 04/06/2025 10:00 AM EDT [facility] Hemoglobin 15.3 13.2 - 17.1 g/dL 04/06/2025 10:00 AM EDT [facility] Hematocrit 45.5 38.5 - 50.0 % 04/06/2025 10:00 AM EDT [facility] MCV 90.5 80.0 - 100.0 fL 04/06/2025 10:00 AM EDT [facility] MCH 30.4 27.0 - 33.0 pg 04/06/2025 10:00 AM EDT [facility] MCHC 33.6 32.0 - 36.0 g/dL 04/06/2025 10:00 AM EDT [facility] RDW 13.1 11.0 - 15.0 % 04/06/2025 10:00 AM EDT [facility] Platelets 250 140 - 400 10*3/uL 04/06/2025 10:00 AM EDT [facility] MPV 10.3 7.5 - 12.5 fL 04/06/2025 10:00 AM EDT [facility] Neutrophil % 67.7 % 04/06/2025 10:00 AM EDT [facility] Immature Grans % 0.5 0.0 - 0.9 % 04/06/2025 10:00 AM EDT [facility] Lymphocyte % 18.4 % 04/06/2025 10:00 AM EDT [facility] Monocyte % 9.1 % 04/06/2025 10:00 AM EDT [facility] Eosinophil % 3.3 % 04/06/2025 10:00 AM EDT [facility] Basophil % 1.0 % 04/06/2025 10:00 AM EDT [facility] Neutrophil # 5.31 1.50 - 7.80 10*3/uL 04/06/2025 10:00 AM EDT [facility] Immature Grans # 0.04(H) <=0.03 10*3/uL 04/06/2025 10:00 AM EDT [facility] Lymphocyte # 1.40 0.85 - 3.90 10*3/uL 04/06/2025 10:00 AM EDT [facility] Monocyte # 0.70 0.20 - 0.95 10*3/uL 04/06/2025 10:00 AM EDT [facility] Eosinophil # 0.30 0.02 - 0.50 10*3/uL 04/06/2025 10:00 AM EDT [facility] Basophil # 0.10 0.00 - 0.20 10*3/uL 04/06/2025 10:00 AM EDT [facility] nRBC % 0.0 /100 WBCs 04/06/2025 10:00 AM EDT [facility] nRBC # <0.01 <0.01 10*3/uL 04/06/2025 10:00 AM EDT [facility] Blood Structure of peripheral vein / Unknown Venipuncture / Unknown 04/06/2025 7:21 AM EDT 04/06/2025 9:46 AM EDT Karoline Martini LOG SORTER LAB BLOOD ORDERABLES F inal Result Performing Organization Address City/[facility]/ZIP Co de Phone Number [facility] [address] [place] [address], * Type and Screen (04/06/2025 7:21 AM EDT) ABO Blood Type O 04/06/2025 5:12 PM EDT [facility] Type Positive 04/06/2025 5:12 PM EDT [facility] Expiration Date/Time 2025-04-09 23:59 04/06/2025 5:12 PM EDT [facility] Antibody Screen Negative 04/06/2025 5:12 PM EDT [facility] Blood Structure of peripheral vein / Unknown Venipuncture / Unknown 04/06/2025 7:21 AM EDT 04/06/2025 11:29 AM EDT Karoline Martini LOG SORTER LAB BLOOD BANK TEST OR DERABLES Final Result Performing Organization Address City/[facility]/ZIP Co de Phone Number [facility] [address] [place] [address], * (ABNORMAL) Comprehensive Metabolic Panel (04/06/2025 7:21 AM EDT) NA 141 135 - 145 mmol/L 04/06/2025 10:25 AM EDT [facility] K 3.8 3.5 - 5.3 mmol/L 04/06/2025 10:25 AM [facility] Cl 106 98 - 107 mmol/L 04/06/2025 10:25 AM [facility] CO2 22 22 - 32 mmol/L 04/06/2025 10:25 AM [facility] Anion Gap 13 5 - 15 04/06/2025 10:25 AM EDT [facility] Glucose 82 65 - 99 mg/dL 04/06/2025 10:25 AM [facility] Creatinine 0.86 0.60 - 1.30 mg/dL 04/06/2025 10:25 AM [facility] Calcium 8.8 8.6 - 10.5 mg/dL 04/06/2025 10:25 AM [email or web address] Total Protein 7.0 6.0 - 8.0 g/dL 04/06/2025 10:25 AM [facility] Albumin 4.0 3.5 - 5.2 g/dL 04/06/2025 10:25 AM [facility] Bilirubin, Total 0.4 0.2 - 1.2 mg/dL 04/06/2025 10:25 AM [email or web address] Alkaline Phosphatase 127 35 - 129 U/L 04/06/2025 10:25 AM [facility] [facility] AST 32 10 - 40 U/L 04/06/2025 10:25 AM [facility] ALT 30 10 - 40 U/L 04/06/2025 10:25 AM [facility] BUN 20 7 - 23 mg/dL 04/06/2025 10:25 AM [facility] eGFR >90 >=60 mL/min/1. 73m2 04/06/2025 10:25 AM EDT [facility] Comment:The estimated glomer ular filtration rate (eGFR) is calculated using a new formula developed by the NKF-ASN task force to eliminate race-based correction factors. The new formula uses serum/plasma creatinine, age, and gender to determine eGFR. A value below 60mls/min might indicate kidney disease and will be flagged. For additional information, see Zain et al, Am J Kidney Dis. 2021;79(2):268- 288, A Unifying Approach for GFR estimation: Recommendations of the NKF-ASN Task Force on Reassessing the Inclusion of Race in Diagnosing Kidney Disease . Globulin, Total 3.0 2.1 - 4.2 g/dL 04/06/2025 10:25 AM EDT [facility] PATH[facility] LAB[facility] A/G Ratio 1.3(L) 1.5 - 3.0 04/06/2025 10:25 AM EDT [facility] Blood Structure of peripheral vein / Unknown Venipuncture / Unknown 04/06/2025 7:21 AM EDT 04/06/2025 9:46 AM EDT Karoline Martini NP LAB BLOOD ORDERABLES F inal Result Performing Organization Address [facility] Co de Phone Number [facility] LAB[facility] [address] * Blood Bank: Prepare Red Blood Cells Transfusion indications: Other (Specify); Other indication: high risk procedure; Irradiated?: No; Special requirements: Leukoreduced: 1 Units (04/02/2025 5:48 PM EDT) Other 04/02/2025 5:48 PM EDT Karoline Martini NP BLOOD BANK PRODUCT ORD ERABLES Final Result Performing Organization Address City/[facility] Co de Phone Number [facility] [address] [place] [address], * PERIPHERAL ANGIOGRAM, EMBOLIZATION VASCULAR (03/08/2025 8:52 AM EDT) Anatomical Region Laterality Modality X-Ray Angiograph y Narrative 03/08/2025 3:39 PM EDT Procedure Details [facility] Vascular Procedure Report Clinical History/Reason for Exam: Sascha Hand is a 54 y.o. male who presents for angiography and possible endovascular intervention for L ANTONY aneurysm with plan for coil embolization of left hypogastric artery Pre-op Diagnosis: * Aneurysm of left common iliac artery (HCC) [I72.3] Procedure(s) Performed: Procedure(s): Angiogram with possible use of Moderate Sedation Embolization of left internal iliac artery Surgeons and Role: * Stewart Vu MD - Primary * Nury Marino MD - Fellow Resident Surgeon: As above. Statement of Attending Surgeon's Presence: The attending surgeon, Stewart Vu MD, was present during the entire procedure. Staff: Nurse: Louis Mckeon RN X-Ray Technologist: RT Tom(R) HV Documenter: Rita Beckett RN; Debbie Siu RN Anesthesia and Moderate Sedation: Moderate sedation was utilized during this procedure. Pre-sedation history and evaluation revealed no contraindications to moderate sedation. The patient received lidocaine, benzodiazepines and/or opioids, the dosing of which is documented in the patient's permanent medical record. The procedural nursing staff and Stewart Vu MD monitored the patient's level of consciousness and physiologic status continuously throughout the procedure. Total intra- service moderate sedation time was 1 Hr 1 Min 50 Sec minutes. Estimated Blood Loss: 0 mL Implants: Implant Name: SYSTEM CLOSURE AND REPAIR SUTURE-MEDIATED PERCLOSE PROSTYLE - S0 - [id number] Type: Implant Inv. Item: SYSTEM CLOSURE AND REPAIR SUTURE-MEDIATED PERCLOSE PROSTYLE Serial No.: [id number] Warehouse General Laborer: [employer] Lot No.: [id number] LRB: Right No. Used: 1 Action: Implanted Implant Name: SYSTEM CLOSURE AND REPAIR SUTURE-MEDIATED PERCLOSE PROSTYLE - S0 - [id number] Type: Implant Inv. Item: SYSTEM CLOSURE AND REPAIR SUTURE-MEDIATED PERCLOSE PROSTYLE Serial No.: 0 Warehouse General Laborer: [employer] Lot No.: [id number] LRB: Right No. Used: 1 Action: Implanted Implant Name: VASCULAR PLUG FOR PERIPHERAL VASCULAR OCCLUSION 12MM - S0 - [id number] Type: Implant Inv. Item: VASCULAR PLUG FOR PERIPHERAL VASCULAR OCCLUSION 12MM Serial No.: 0 Warehouse General Laborer: [employer] Lot No.: [id number] LRB: Right No. Used: 1 Action: Implanted Radiographic Findings: Aorta: Normal, no evidence of stenosis, aneurysmal degeneration, or significant disease of the renal or mesenteric arteries. Successful embolization of the left hypogastric artery. Procedure: Procedure in detail: The patient was placed in a supine position on the angiography table. Physiologic monitoring was initiated. Moderate sedation for patient comfort and analgesia was provided at the direction and constant supervision of the attending surgeon. The groins were prepped and draped utilizing CHG. A time out was called. Using ultrasound guidance, we accessed the R common femoral artery using a micropuncture system. We exchanged for a J-wire and a 4 [place] sheath. We advanced a ultra flush catheter above the aortic bifurcation and with a floppy glide attempted to select the hypogastric artery on the left side. We were unable to track a catheter over the wire. We then upsized to a 6 [place] African sheath in the right groin. We then placed 2 Perclose using the preclose technique. We then advanced a 8.5 [place] steerable sheath over our J-wire. We formed the catheter and using a Berenstein and long floppy glide were able to select the left internal iliac artery as confirmed with angiography. We advanced our Berenstein and then exchanged for a Amos. Over the Amos, we advanced a 6 South African Rabie. Through the Rabie we advanced a 12 mm Amplatzer plug and deployed it. Completion angiography demonstrated appropriate placement of Amplatzer. The Rabie was removed and the typing element machine operator was straightened. It was removed and Percloses were tied down in a standard fashion. The groin was soft and hemostatic. Protamine was administered. We confirmed a palpable pulse proximal and distal to the device. We applied a sterile dressing. The patient was transferred to the recovery area in satisfactory condition. Impression: Angiogram of the aorta and left lower extermity with plug embolization of left hypogastric artery as described above. Complications: None Post Procedure Plan/Follow up: Patient will return for groin check 03/13 and then will have a fenestrated endovascular aortic repair Nury Marino MD PGY-5 us Stewart Vu MD CV INVASIVE VASCULAR PROCEDUR ES Final Result * (ABNORMAL) POCT I-STAT Chemistry 8 Panel, interfaced (03/08/2025 6:51 AM EDT) Sample Type, POCT Venous 025 6:58 AM EDT [facility] Sodium, POCT 142 135 - 145 mmol/L 03/08/2025 6:58 AM EDT [facility] Potassium, POCT 4.1 3.5 - 5.3 mmol/L 03/08/2025 6:58 AM EDT [facility] Chloride, POCT 106 97 - 110 mmol/L 03/08/2025 6:58 AM EDT [facility] TCO2, POCT 23(L) 24 - 32 mmol/L 03/08/2025 6:58 AM EDT [facility] Anion Gap, POCT 13 5 - 15 mmol/L 03/08/2025 6:58 AM EDT [facility] iCA, POCT 5.1 4.6 - 5.3 mg/dL 03/08/2025 6:58 AM EDT [facility] Glucose, POCT 118(H) 70 - 99 mg/dL 03/08/2025 6:58 AM EDT [facility] BUN, POCT 17 7 - 23 mg/dL 03/08/2025 6:58 AM EDT [facility] Creatinine, POCT 0.9 0.6 - 1.3 mg/dL 03/08/2025 6:58 AM EDT [facility] eGFR >90 >=60 mL/min/1. 73m2 03/08/2025 6:58 AM EDT [facility] Comment:The estimated glomer ular filtration rate (eGFR) is calculated using a new formula developed by the NKF-ASN task force to eliminate race-based correction factors. The new formula uses serum/plasma creatinine, age, and gender to determine eGFR. A value below 60mls/min might indicate kidney disease and will be flagged. For additional information, see Zain et al, Am J Kidney Dis. 2021;79(2):268- 288, A Unifying Approach for GFR estimation: Recommendations of the NKF-ASN Task Force on Reassessing the Inclusion of Race in Diagnosing Kidney Disease . HCT, POCT 48 42 - 52 % 03/08/2025 6:58 AM EDT [facility] Blood 03/08/2025 6:51 AM EDT 03/08/2025 6:58 AM EDT Narrative [facility] - 03/08/2025 6:58 AM EDT i-STAT analyzer cannot determine presence of hemolysis in sample us Stewart Vu MD LAB POCT ORDERABLES - DEVICE Final Result [facility] [address] [place] [address], from Last 3 Months Additional Health Concerns Active Problems Noted Date Diagnosed Date Autogenerated Problem 03/06/2025 Insurance [facility] Advance Directives * Full Code (Latest Code Status on File) Date Activated Date Inactivated Comments 03/08/2025 6:32 AM 03/08/2025 2:16 PM Care Teams Gage Maker Relationship Specialty Start Date End Date Kassie Lauren [address] [place] [address] PCP - General 01/28/17 Krystal Freitas MD [address] [facility] [address] Cardiology 03/06/25
--- OUTSIDE RECORDS SUMMARY | 2025-04-16 07:18 | XMS_ITS | Encounter Summary ---
Author Organization [employer] Address [address] [place] [address] 7 [place] [address] Care Team Providers Care External Relations Director Name Role Phone Kassie Lauren MD Primary Care Provider [phone] Reason for Visit * Reason Comments Med Refill Encounter Details Date Type Department Care Team ([facility] st Contact Info) Description 02/04/2024 Refill [facility] CH[facility] MED & PEDS [address] [place] [address] Leidy Wilder MD [address] [place] [address] Benign essential hypertension Social History Tobacco Use [...] t he electric, gas, oil or water [employer] threatened to shut off services in your [...] documented as of this encounter Care Teams External Relations Director Relationship Specialty Start Date End Date Kassie Lauren MD [address] [place] [address] PCP - General Internal Medicine 07/12/18 documented as of this encounter
--- OUTSIDE RECORDS SUMMARY | 2025-04-16 07:18 | XMS_ITS | Encounter Summary ---
Author Organization [employer] Address [address] [facility] [address] [address] Care Team Providers Care Disposition Clerk Name Role Phone Kassie Lauren MD Primary Care Provider [phone] Reason for Visit * Reason Comments Med Refill Encounter Details Date Type Department Care Team ([facility] st Contact Info) Description 06/27/2024 Refill [facility] CH[facility] MED & PEDS [address] [place] [address] Kassie Lauren MD [address] [place] [address] Benign essential hypertension Social History Tobacco Use [...] documented as of this encounter Care Teams Disposition Clerk Relationship Specialty Start Date End Date Kassie Lauren MD [address] [place] [address] PCP - General Internal Medicine 07/12/18 documented as of this encounter
--- OUTSIDE RECORDS SUMMARY | 2025-04-16 07:18 | XMS_ITS | Encounter Summary ---
Author Organization [employer] Address [address] [facility] 7[place] [address] Care Team Providers Care Certified Scrum Master Name Role Phone Kassie Luaren MD Primary Care Provider [phone] Encounter Details Date Type Department Care Team ([facility] Contact Info) Description 06/30/2024 Orders Only [facility] CHC MED & PEDS [address] [place] [address] Kassie Lauren MD [address] [place] [address] Social History Tobacco Use Types Packs/Day Years [...] documented as of this encounter Care Teams Certified Scrum Master Relationship Specialty Start Date End Date Kassie Lauren MD [address] [place] [phone] PCP - General Internal Medicine 07/12/18 documented as of this encounter
--- OUTSIDE RECORDS SUMMARY | 2025-04-16 07:18 | XMS_ITS | Encounter Summary ---
Author Organization [employer] Address [address] [place] [address] Care Team Providers Care Digital Engineer Name Role Phone Kassie Lauren MD Primary Care Provider [phone] Reason for Referral * Imaging (Routine) - Closed Specialty Diagnoses / Procedures Referred By Contliv albert Referred To Contact Radiology Diagnoses Transaminitis Procedures US Abdomen Complete Kassie Lauren MD [address] [place] [address] Phone: tel: fax: [address] Phone: tel: fax: Referral ID Status Reason Start Date Expiration Date Visits Re quested Visits Authorized [id number] Closed 10/23/2024 10/23/2025 1 1 Encounter Details Date Type Department Care Team (Late st Contact Info) Description 10/23/2024 Orders Only [facility] CHC MED & PEDS [address] [place], [place] [phone] Kassie Lauren MD [address] [place], [place] [phone] Transaminitis (Primary Dx) Social History Tobacco Use [...] of this encounter Plan of Treatment Scheduled Orders Name Type Priority Associated Diagnoses Orde r Schedule Hepatitis A,B,C Profile Lab Routine Transaminitis Expected: 10/23/2024, Expires: 10/23/2025 Hepatitis [...] Procedure Name Priority Date/Time Associated Diagnosis Comments US ABDOMEN COMPLETE Routine 12/06/2024 1 1:55 AM EDT Transaminitis XR CERVICAL SPINE 3V Routine 11/15/2024 8:04 PM EDT HEPATITIS PANEL, GENERAL Routine 11/15/2024 10:17 AM EDT Transaminitis IRON AND TOTAL IRON BINDING CAPACITY Routine 11/15/2024 10:17 AM EDT Transaminitis CERULOPLASMIN Routine 11/15/2024 10:17 AM EDT Transaminitis PROTHROMBIN TIME-INR Routine 11/15/2024 10:17 AM EDT Transaminitis IMMUNOGLOBULINS, QUANTITATIVE, IGA, IGG, IGM Routine 11/15/2024 10:17 AM EDT Transaminitis FERRITIN Routine 11/15/2024 10:17 AM EDT Transaminitis documented in this encounter Results * US Abdomen Complete (12/06/2024 11:55 AM EDT) Anatomical Region Laterality Modality Abdomen Ultrasound 12/06/2024 11:5 5 AM EDT Narrative 12/06/2024 11:56 AM EDT [address] [address] Ultrasound Report Signed Patient: Sascha Hand MR#: [id number] 9 : 1970 Acct:[id number] Age/Sex: 54 / M ADM Date: 12/06/24 Loc: HO.US Attending Dr: Kassie Lauren MD Ordering Physician: Kassie Lauren MD Date of Service: 12/06/24 Procedure(s): US abdomen complete Accession Number(s): [id number] cc: Kassie Lauren MD CLINICAL HISTORY: Transaminitis US abdomen complete Comparison: None Findings: The visualized pancreas is normal. There is aneurysmal dilatation of the distal abdominal aorta measuring up to 6.4 cm in diameter. The liver is normal in size and echotexture. There is no intrahepatic bile duct dilatation. The common duct is 5 mm in diameter. The gallbladder is normal. There is no sonographic Zapien sign. The main portal vein is antegrade. The right kidney is 12.5 cm in length. The left kidney is 11.8 cm in length. There is mild splenomegaly. Spleen measures up to 13.3 cm in diameter. No ascites. IMPRESSION: 1. Fusiform aneurysmal dilatation of the distal aorta measuring up to 6.4 cm in diameter 2. Mild splenomegaly. This document has been electronically signed by: Nash Johnson MD on 12/06/2024 11:55:11 Dictated By: Nash Johnson MD Signed By: <Electronically signed by Nash Johnson MD in OV> 12/06/24 1156 DD/ 1155 TD/TT: 12/06/24 1155 Dredge Mate: Procedure Note Donotuseinterpreter, Image - 12/06/2024 [place] [address] Ultrasound Report Signed Patient: Sascha Hand [facility]#: [id number] 9 : 1970Acct:[id number] Age/Sex: 54 / MADM Date: 12/06/24 Loc: HO.US Attending Dr: Kassie Lauren MD Ordering Physician: Kassie Lauren MD Date of Service: 12/06/24 Procedure(s): US abdomen complete Accession Number(s): [id number] cc: Kassie Lauren MD CLINICAL HISTORY: Transaminitis US abdomen complete Comparison: None Findings: The visualized pancreas is normal. There is aneurysmal dilatation of the distal abdominal aorta measuring up to 6.4 cm in diameter. The liver is normal in size and echotexture. There is no intrahepatic bile duct dilatation. The common duct is 5 mm in diameter. The gallbladder is normal. There is no sonographic Zapien sign. The main portal vein is antegrade. The right kidney is 12.5 cm in length. The left kidney is 11.8 cm in length. There is mild splenomegaly. Spleen measures up to 13.3 cm in diameter. No ascites. IMPRESSION: 1. Fusiform aneurysmal dilatation of the distal aorta measuring up to 6.4 cm in diameter 2. Mild splenomegaly. This document has been electronically signed by: Nash Johnson MD on 12/06/2024 11:55:11 Dictated By: Nash Johnson MD Signed By: <Electronically signed by Nash Johnson MD in OV> 12/06/24 1156 DD/ 1155 TD/TT: 12/06/24 1155 Dredge Mate: us Kassie Lauren MD IMG US PROCEDURES Final Res ult * XR CERVICAL SPINE 3V (11/15/2024 8:04 PM EDT) Anatomical Region Laterality Modality Abdomen Radiographic Minoo ging 11/15/2024 8:04 PM EDT Narrative 11/15/2024 8:05 PM EDT [place] [address] XRay Report Signed Patient: Sascha Hand MR#: [id number] 9 : 1970 Acct:[id number] Age/Sex: 54 / M ADM Date: 11/15/24 Loc: REYES Attending Dr: Kassie Lauren MD Ordering Physician: Kassie Lauren MD Date of Service: 11/15/24 Procedure(s): XR cervical spine 3V Accession Number(s): [id number] cc: Kassie Lauren MD CLINICAL HISTORY: NECK PAIN WITH TINGLING OF RIGHT UPPER LIMB --- Additional Notes or Special Instructions: WO Cervical spine four views Comparison: None Findings: Lower cervical spine never well visualized. No acute fracture or dislocation. Posterior alignment is normal. Moderate degenerative change. No radiopaque foreign bodies. Impression: No acute processes This document has been electronically signed by: Jose Rod MD on 11/15/2024 20:04:38 Dictated By: Jose Rod MD Signed By: <Electronically signed by Jose Rod MD in OV> 11/15/242004 DD/ 03 TD/TT: 11/15/242003 Dredge Mate: Procedure Note Donotuseinterpreter, Image - 11/15/[address] [address] XRay Report Signed Patient: Sascha Hand MMR#: [id number] 9 : 1970Acct:[id number] Age/Sex: 54 / MADM Date: 11/15/24 Loc: HO.XRAY Attending Dr: Kassie Lauren MD Ordering Physician: Kassie Lauren MD Date of Service: 11/15/24 Procedure(s): XR cervical spine 3V Accession Number(s): [id number] cc: Kassie Lauren MD CLINICAL HISTORY: NECK PAIN WITH TINGLING OF RIGHT UPPER LIMB ---Additional Notes or Special Instructions: WO Cervical spine four views Comparison: None Findings: Lower cervical spine never well visualized. No acute fracture or dislocation. Posterior alignment is normal. Moderate degenerative change. No radiopaque foreign bodies. Impression: No acute processes This document has been electronically signed by: Jose Rod MD on 11/15/2024 20:04:38 Dictated By: Jose Rod MD Signed By: <Electronically signed by Jose Rod MD in OV> 11/15/242004 DD/ 03 TD/TT: 11/15/242003 Dredge Mate: us Kassie Lauren MD IMG XR PROCEDURES Final Res ult * Immunoglobulins Panel, Serum (11/15/2024 10:17 AM EDT) IMMUNOGLOBULIN G 1064 600 - 1640 mg/dL [facility] IMMUNOGLOBULIN A 139 47 - 310 mg/dL [facility] Immunoglobulin M 202 50 - 300 mg/dL [facility] Comment:THIS TEST WAS PERFOR MED AT:[facility] [place] [phone] MEADOWS MD Blood Venous blood specimen / Unknown 11/15/2024 10:17 AM EDT 11/15/2024 10:17 AM EDT us Kassie Lauren MD LAB BLOOD ORDERABLES Final Result Performing Organization Address [facility] Co de Phone Number [facility] [address] [place] [phone] * Hepatitis A,B,C Profile (11/15/2024 10:17 AM EDT) Hepatitis A IgM Nonreactive Nonreactive [facility] Comment:IgM antibodies to LUA V not detected; does not exclude earlyacute or recovered HAV infection. ~Hepatitis B Surface Antibody NONREACTIVE Nonreactive [facility] Comment:Nonreactive: < 8.00 mIU/mL Hepatitis B Core Antibody Nonreactive Nonreactive [facility] Hepatitis C Antibody Nonreactive Nonreactive [facility] Comment:Antibodies to HCV no t detected; does not exclude early acuteHCV infection. Hepatitis B Surface Ag Negative Negative [facility] Blood Venous blood specimen / Unknown 11/15/2024 10:17 AM EDT 11/15/2024 10:17 AM EDT us Kassie Lauren MD LAB BLOOD ORDERABLES Final Result Performing Organization Address [facility] Co de Phone Number [facility] [address] [place] [phone] * (ABNORMAL) Prothrombin Time-INR (11/15/2024 10:17 AM EDT) Prothrombin Time 10.3(L) 10.9 - 12.4 SEC [facility] INTERNATIONAL NORM RATIO 0.9 0.9 - 1.1 [facility] Comment:INTERNATIONAL NORMAL IZED RATIO (INR) [...] BLOOD ORDERABLES Final Result Performing Organization Address City/[facility]/ZIP Co de Phone Number [facility] [address] [place] [phone] * Ferritin (11/15/2024 10:17 AM EDT) Ferritin 101 20 - 250 ng/mL [facility] Blood Venous blood specimen / Unknown 11/15/2024 10:17 AM EDT 11/15/2024 10:17 AM EDT us Kassie Lauren MD LAB BLOOD ORDERABLES Final Result Performing Organization Address [facility]/ZIP Co de Phone Number [facility] [address] [place] [phone] * Iron And Total Iron Binding Capacity (11/15/2024 10:17 AM EDT) Iron 83 45 - 160 mcg/dL [facility] Total Iron Binding Capacity 303 228 - 428 mcg/dL [facility] Percent Iron Saturation 27 15 - 50 % [facility] Unsaturated Iron Binding 220 ug/dL [facility] Blood Venous blood specimen / Unknown 11/15/2024 10:17 AM EDT 11/15/2024 10:17 AM EDT us Kassie Lauren MD LAB BLOOD ORDERABLES Final Result Performing Organization Address [facility] de Phone Number [facility] [address] [place] [phone] * Ceruloplasmin (11/15/2024 10:17 AM EDT) Ceruloplasmin 23 14 - 30 mg/dL [facility] Comment:THIS TEST WAS PERFOR MED AT:[facility] [place] [phone] MEADOWS MD Blood Venous blood specimen / Unknown 11/15/2024 10:17 AM EDT 11/15/2024 10:17 AM EDT Kassie Lauren MD LAB BLOOD ORDERABLES Final Result Performing Organization Address [facility] de Phone Number [facility] [address] [place] [phone] documented in this encounter Visit Diagnoses Diagnosis Transaminitis- Primary Nonspecific elevation of levels of transaminase or lactic acid dehydrogenase (LDH) documented in this encounter Additional Health Concerns Assessment Noted Time PHQ-9 Depression Total Score: 5 10/21/19 25 4:37 PM EDT documented as of this encounter Care Teams Digital Engineer Relationship Specialty Start Date End Date Kassie Lauren MD [address] [place] [address] PCP - General Internal Medicine 07/12/18 documented as of this encounter
--- OUTSIDE RECORDS SUMMARY | 2025-04-16 07:18 | XMS_ITS | Encounter Summary ---
Author Organization [employer] Address [address] [address] Care Team Providers Care Health Careers Instructor Name Role Phone Kassie Lauren MD Primary Care Provider [phone] Reason for Visit * Reason Comments Med Refill Encounter Details Date Type Department Care Team ([facility] st Contact Info) Description 04/21/2023 Refill [facility] [address] [place] [address] Kassie Lauren MD [address] [place], [place] [phone] Primary osteoarthritis involving multiple joints Social History [...] t he electric, gas, oil or water [employer] threatened to shut off services in your [...] documented as of this encounter Care Teams Health Careers Instructor Relationship Specialty Start Date End Date Kassie Lauren MD [address] [place] [phone] PCP - General Internal Medicine 07/12/18 documented as of this encounter
--- OUTSIDE RECORDS SUMMARY | 2025-04-16 07:18 | XMS_ITS | Encounter Summary ---
Author Organization [employer] Address [address] [place] [address] Care Team Providers Care Rock Mason Name Role Phone Kassie Lauren MD Primary Care Provider [phone] Reason for Visit * Reason Comments Med Refill Encounter Details Date Type Department Care Team ([facility] st Contact Info) Description 02/07/2025 Refill [facility] CHC MED & PEDS [address] [place] [address] Kassie Lauren MD [address] [place] [address] Benign essential hypertension Social History Tobacco Use [...] documented as of this encounter Care Teams Rock Mason Relationship Specialty Start Date End Date Kassie Lauren MD [address] [place] [phone] PCP - General Internal Medicine 07/12/18 documented as of this encounter
--- OUTSIDE RECORDS SUMMARY | 2025-04-16 07:18 | XMS_ITS | Encounter Summary ---
Author Organization [employer] Address [address] [place] [address] Care Team Providers Care Speech Lang Path Therapist Name Role Phone Kassie Lauren MD Primary Care Provider [phone] Reason for Visit * Reason Comments Med Refill Encounter Details Date Type Department Care Team ([facility] st Contact Info) Description 10/16/2024 Refill [facility] CHC MED & PEDS [address] [place] [address] Kassie Lauren MD [address] [place] [address] BMI 38.0-38.9,adult; Class 2 severe obesity due [...] (BMI) of 38.0 to 38.9 in adult Severe obesity (BMI >= 40) (CMS/HCC) (HCC) Chronic stable angina (CMS/HCC) documented in this encounter Additional Health Concerns Assessment Noted Time PHQ-9 Depression Total Score: 0 11/03/19 23 2:16 PM EDT documented as of this encounter Care Teams Speech Lang Path Therapist Relationship Specialty Start Date End Date Kassie Lauren MD [address] [place] [phone] PCP - General Internal Medicine 07/12/18 documented as of this encounter
--- OUTSIDE RECORDS SUMMARY | 2025-04-16 07:18 | XMS_ITS | Encounter Summary ---
Author Organization [employer] Address [address] [place] [address] [address] [place] [address] Care Team Providers Care Manager Recruitment Name Role Phone Kassie Lauren MD Primary Care Provider [phone] Reason for Visit * Reason Comments Med Refill Encounter Details Date Type Department Care Team ([facility] st Contact Info) Description 02/05/2025 Refill [facility] CHC MED & PEDS [address] [place] [address] Leidy Wilder MD [address] [place] [address] Benign essential hypertension Social History Tobacco Use [...] as of this encounter Care Teams Manager Recruitment Relationship Specialty Start Date End Date Kassie Lauren MD [address] [place] [phone] PCP - General Internal Medicine 07/12/18 documented as of this encounter
--- OUTSIDE RECORDS SUMMARY | 2025-04-16 07:18 | XMS_ITS | Encounter Summary ---
Author Organization [employer] Address [address] [facility] [address] [place] [address] Care Team Providers Care Ground Equipment Mechanic Name Role Phone Kassie Lauren MD Primary Care Provider [phone] Encounter Details Date Type Department Care Team ([facility] st Contact Info) Description 03/16/2025 Orders Only [facility] CHC MED & PEDS [address] [place] [address] Kassie Lauren MD [address] [place] [address] Pruritus scroti (Primary Dx); Stasis dermatitis Social History Tobacco Use Types Packs/Day Years [...] of this encounter Visit Diagnoses Diagnosis Pruritus scroti- Primary Pruritus of genital organs Stasis dermatitis Varicose veins of lower extremities with inflammation documented in this encounter Additional Health Concerns Assessment Noted Time PHQ-9 Depression Total Score: 5 10/21/19 25 4:37 PM EDT documented as of this encounter Care Teams Ground Equipment Mechanic Relationship Specialty Start Date End Date Kassie Lauren MD [address] [place] [phone] PCP - General Internal Medicine 07/12/18 documented as of this encounter
--- OUTSIDE RECORDS SUMMARY | 2025-04-16 07:18 | XMS_ITS | Encounter Summary ---
Author Organization [employer] Address [address] [facility] 7 [place] [address] Care Team Providers Care Poultry Eviscerator Name Role Phone Kassie Lauren MD Primary Care Provider [phone] Encounter Details Date Type Department Care Team ([facility] st Contact Info) Description 11/09/2023 Orders Only [facility] CHC MED & PEDS [address] [place] [address] Kassie Lauren MD [address] [place] [address] Pruritus scroti (Primary Dx); Benign essential hypertension; [...] t he electric, gas, oil or water [employer] threatened to shut off services in your [...] on file documented as of this encounter Procedures Procedure Name Priority Date/Time Associated Diagnosis Comments URINALYSIS, COMPLETE Routine 11/25/2023 8:38 AM EDT Microscopic hematuria BASIC METABOLIC PANEL Routine 11/25/2023 8:30 AM EDT Benign essential hypertension URINALYSIS, COMPLETE Routine 11/09/2023 2:39 PM EDT Pruritus scroti documented in this encounter Results * Urinalysis Complete (11/25/2023 8:38 AM EDT) Color Urine Yellow [facility] Appearance Urine Clear [facility] PH 5.5 5.0 - 9.0 [facility] Glucose Urine UA Negative Negative mg/dL [facility] Urine Blood Negative Negative [facility] Specific [place] - Urine 1.010 1.005 - 1.025 [facility] Urine Protein Negative Neg-Trace mg/dL [facility] Urine Ketones Negative Negative mg/dL [facility] Nitrite Urine Negative Negative [facility] Leukocyte Esterase Urine Negative Negative [facility] RBC Urine 0-2 0 - 2 /HPF [facility] Urine WBC 0-5 0 - 5 /HPF [facility] Urine Squamous Epithelial Cell 0-2 0 - 2 /HPF [facility] Urine Bacteria None Seen None Seen [facility] Hyaline Casts, Urine 0-2 0 - 2 /LPF [facility] Urine (Urine, Random) 11/25/2023 8:38 AM EDT 11/25/2023 2:30 PM EDT us Kassie Lauren MD LAB URINE ORDERABLES Final Result Performing Organization Address [facility] Co de Phone Number [facility] [address] [place] [address] [phone] * (ABNORMAL) Basic Metabolic Panel (11/25/2023 8:30 AM EDT) Sodium 144 135 - 145 mmol/L [facility] Potassium 3.9 3.3 - 5.1 mmol/L [facility] Chloride 105 96 - 108 mmol/L [facility] Carbon Dioxide 25 22 - 29 mmol/L [facility] Anion Gap 18 12 - 20 [facility] Urea Nitrogen (BUN) 17(H) 9 - 16 mg/dL [facility] Creatinine, Serum 1.00 0.5 - 1.4 mg/dL [facility] Estimated Glomerular Filt Rate >60 [facility] Comment:NOTE: For -Am erican individuals, multiply the result by 1.210.Chronic Kidney Disease: Estimated GFR < 60 mL/min/1.06z3Nodcdo Kidney Disease: Estimated GFR < 15 mL/min/1.73m2 Glucose 90 60 - 115 mg/dL [facility] Calcium 9.4 8.4 - 10.2 mg/dL [facility] Blood Venous blood specimen / Unknown 11/25/2023 8:30 AM EDT 11/25/2023 2:39 PM EDT us Kassie Lauren MD LAB BLOOD ORDERABLES Final Result Performing Organization Address [facility]/ZIP Co de Phone Number [facility] [address] [place] [address] [phone] * (ABNORMAL) Urinalysis Complete (11/09/2023 2:39 PM EDT) Color Urine Dark Yellow [facility] Appearance Urine Cloudy [facility] PH 6.0 5.0 - 9.0 [facility] Glucose Urine UA Negative Negative mg/dL [facility] Urine Blood Large (3+)(A) Negative [facility] Specific [place] - Urine >=1.030(H) 1.005 - 1.025 [facility] Urine Protein Trace Neg-Trace mg/dL [facility] Urine Ketones Trace Negative mg/dL [facility] Nitrite Urine Negative Negative [facility] Leukocyte Esterase Urine Moderate (2+)(A) Negative [facility] RBC Urine 11-20(A) 0 - 2 /HPF [facility] Urine WBC 21-50 0 - 5 /HPF [facility] Urine Squamous Epithelial Cell 0-2 0 - 2 /HPF [facility] Urine Bacteria None Seen None Seen [facility] Hyaline Casts, Urine 0-2 0 - 2 /LPF [facility] Urine (Urine, Random) 11/09/2023 2:39 PM EDT 11/09/2023 5:35 PM EDT us Kassie Lauren MD LAB URINE ORDERABLES Final Result [facility] [address] [place] [phone] [phone] documented in this encounter Visit Diagnoses Diagnosis Pruritus scroti- Primary Pruritus of genital organs Benign essential hypertension Essential hypertension, benign Microscopic hematuria documented in this encounter Additional Health Concerns Assessment Noted Time PHQ-9 Depression Total Score: 0 11/03/19 23 2:16 PM EDT documented as of this encounter Care Teams Poultry Eviscerator Relationship Specialty Start Date End Date Kassie Lauren MD [address] [place] [address] PCP - General Internal Medicine 07/12/18 documented as of this encounter
--- OUTSIDE RECORDS SUMMARY | 2025-04-16 07:18 | XMS_ITS | Encounter Summary ---
Author Organization [employer] Address [address] [place] [address] Care Team Providers Care Electrophonic Engineer Name Role Phone Kassie Lauren MD Primary Care Provider [phone] Reason for Visit * Reason Comments Med Refill Encounter Details Date Type Department Care Team ([facility] st Contact Info) Description 02/18/2025 Refill [facility] CHC MED & PEDS [address] [place] [address] Kassie Lauren MD [address] [place] [address] Primary insomnia Social History Tobacco Use Types [...] of this encounter Visit Diagnoses Diagnosis Primary insomnia Persistent disorder of initiating or maintaining sleep documented in this encounter Additional Health Concerns Assessment Noted Time PHQ-9 Depression Total Score: 5 10/21/19 25 4:37 PM EDT documented as of this encounter Care Teams Electrophonic Engineer Relationship Specialty Start Date End Date Kassie Lauren MD [address] [place] [phone] PCP - General Internal Medicine 07/12/18 documented as of this encounter
--- OUTSIDE RECORDS SUMMARY | 2025-04-16 07:18 | XMS_ITS | Encounter Summary ---
Author Organization [employer] Address [address] [place] [address] Care Team Providers Care Director Title Name Role Phone Kassie Lauren MD Primary Care Provider [phone] Reason for Visit * Reason Comments Med Refill Encounter Details Date Type Department Care Team ([facility] st Contact Info) Description 01/11/2025 Refill [facility] CHC MED & PEDS [address] [place] [address] Kassie Lauren MD [address] [place] [address] Obesity (BMI 30-39.9) Social History Tobacco Use [...] as of this encounter Care Teams Director Title Relationship Specialty Start Date End Date Kassie Lauren MD [address] [place] [phone] PCP - General Internal Medicine 07/12/18 documented as of this encounter
--- OUTSIDE RECORDS SUMMARY | 2025-04-16 07:18 | XMS_ITS | Encounter Summary ---
Author Organization [facility] Address [address] [place] [address] Care Team Providers Care Fruit Cutter Name Role Phone Kassie Lauren Primary Care Provider + [phone] Encounter Details Date Type Department Care Team (Late st Contact Info) Description 03/06/2025 Orders Only [facility] Interventional Radiology [address] [place] [address] Laurent Benítez MD [address] [facility] [place] [address] Social History Tobacco Use Types Packs/Day Years Used Date Smoking Tobacco: Every Day Comments:: Sex and Gender Information Value Date Recorded Sex Assigned at Not on file Legal Sex Male 6:51 PM EDT Gender Identity Male 03/01/2025 9:23 AM EDT Sexual Orientation Straight 03/01/2025 9: 23 AM EDT documented as of this encounter Plan of Treatment Upcoming Encounters Date Type Department Care Team (Latest Contact Info) Description 04/18/2025 8:05 AM EDT Hospital Encounter [facility] Operating Room [address] [place] [address] Stewart Vu MD [address] [place] [address] Juxtarenal abdominal aortic aneurysm (AAA) without rupture 04/18/2025 8:05 AM EDT Anesthesia Event [facility] Operating Room [address] [place] [address] Edd Gomez MD [address] [place] [address] [place] [address] 04/18/2025 8:05 AM EDT - 04/18/2025 1:10 PM EDT Surgery [facility] Operating Room [address] [place] [address] Stewart Vu MD [address] [place] [address] ENDOVASCULAR REPAIR VISCERAL AORTA AND INFRARENAL ABDOMINAL USING GRAFTS 4 Branches [[id number] (CPT )] 04/30/2025 8:30 AM EDT Follow-Up [facility] Vascular Surgery [address] [place] [address] Pan Shover: Mayra Palumbo NP [address] [place] [address] 05/21/2025 10:45 AM EST Appointment [facility] CT [address] [place] [address] 05/21/2025 11:20 AM EST Follow-Up [facility] Vascular Surgery [address] [place] [address] Pan Shover: Stewart Rubin MD [address] [place] [phone] Scheduled Procedures Name Priority Associated Diagnoses Date/Ti me ENDOVASCULAR REPAIR VISCERAL AORTA AND INFRARENAL ABDOMINAL USING GRAFTS Juxtarenal abdominal aortic aneurysm (AAA) without rupture 04/18/2025 8:05 AM EDT documented as of this encounter Goals Goal Patient Goal Type Associated Problems Recent Progress Patient-Stated? Author Autogenera erwin Goal Care Plan Autogenerated Problem No Tavia Rodriguez documented as of this encounter Visit Diagnoses Not on filedocumented in this encounter Additional Health Concerns Active Problems Noted Date Diagnosed Date Autogenerated Problem 03/06/2025 documented as of this encounter Care Teams Fruit Cutter Relationship Specialty Start Date End Date Kassie Lauren [address] [place] [address] PCP - General 01/28/17 Krystal Freitas MD [address] [facility] [address] Cardiology 03/06/25 documented as of this encounter
== END 2025-04-16 07:15 | disposition home or self-care (01) ==
LOC: HO.CT 07:14
PROVIDERS: PCP Internal Medicine; Visit Provider Physician Assistant Medical
DX: Z12.2 Encounter for screening for malignant neoplasm of respiratory organs (principal); Z87.891 Personal history of nicotine dependence; R22.1 Localized swelling, mass and lump, neck
CPT/HCPCS: 71271; 76536

== ENCOUNTER → 2025-04-16 09:16 | Outpatient (BNV) | payer OTHER, SELFPAY | PROVIDERS: PCP Internal Medicine; Visit Provider Radiology Diagnostic Radiology | DX: Z87.891 Personal history of nicotine dependence (principal); R22.1 Localized swelling, mass and lump, neck | CPT/HCPCS: 71271; 76536 ==

== ENCOUNTER 2025-06-15 15:50 | Outpatient (AMB) | payer OTHER, SELFPAY ==
--- NOTE | 2025-06-15 15:50 | MHC.OFFVIS ---
Intake Visit Reasons: 6m follow up(set) Intake Note: Reason for Visit: Erectile Dysfunction follow up Urology Meds: Tadalafil, Imipramine Blood Thinners: Aspirin Labs: None Imaging: None Last PVR: None Oracle Database Architect Required: No Allergies hydrochlorothiazide Allergy (Severe, Verified 06/15/25 15:50) TONGUE SWELLING lisinopril (LISINOPRIL) Allergy (Severe, Verified 06/15/25 15:50) TONGUE SWELLING HPI Comments Details: Sascha is a pleasant male. He is a patient of Dr. Schmidt. He is seen for the following urologic conditions - erectile dysfunction - scrotal itch Telemedicine Evaluation 15 min Consultation [employer] Video Six-month follow-up Recent cardiac event with extensive thoracic aortic aneurysm stenting Has been placed on isosorbide monohydrate b.i.d. Discussed 20-year-old data which had shown non clinically significant blood pressure interaction between isosorbide and sildenafil The studies actually involved high daily doses of PDE5 that are not used in clinical practice There are also multiple large skull studies looking at EHR data in the [facility] and [facility] showing no clinical evidence of significant interaction between low-dose daily medication and nitrites. Elias A, Griselda P, Bright RUTHG, Oskra N, Yogi D, Bright MH, El-Guadalupe M, Rita AM, Rosa M, Veto G, Catalina C, Singh P, Lucio M. Adverse Events Associated With Coprescription of Phosphodiesterase Type 5 Inhibitors and Oral Organic Nitrates in Male Patients With Ischemic Heart Disease : A Case-Crossover Study. Shruthi Vessel Manager Med. 2021;175(6):774-782. doi: 10.7326/G58-7187 Cristina LOUISE, Aimee MADRIGAL, Charlie A, Ashley A, Jordan T. Cardiovascular Outcome Risks in Patients With Erectile Dysfunction Co-Prescribed a Phosphodiesterase Type 5 Inhibitor (PDE5i) and a Nitrate: A Retrospective Observational Study Using Electronic Health Record Data in the [place]. J Sex Med. 2020;18(9):0927-8659 In fact data indicates use of tadalafil in all cardiac settings is beneficial Recommend restarting 5 mg daily tadalafil with at home blood pressure monitoring Hormone follow-up T Labs - 12/03 T470, free 62, LH 8.8 Erectile dysfunction Able to attain but cannot maintain erection without oral medications Tadalafil 5 mg daily with 20 on demand successful PSA - 03/01 1.3 Associated hypertension and dyslipidemia Prior history of UTI and genital herpes Continue with yearly evaluation Scrotal itch Diflucan 2 doses Imipramine 50 mg for 1 month to allow healing [facility] Medical History (Updated 06/15/25 @ 16:35 by Cb Thayer MD) ROSS (obstructive sleep apnea) Personal history of nicotine dependence Coronary artery disease Erectile dysfunction BPH (benign prostatic hyperplasia) HTN (hypertension) Surgical History Hx of heart artery stent History of left inguinal hernia repair History of ventral hernia repair History of cardiac cath History of appendectomy Family History Maternal Grandmother Intestinal cancer Sinus malignant neoplasm Maternal Grandfather Cancer Social History Are you a primary animal care provider to a significant other at home: Yes (son, will have post-op assistance) Do you presently have visiting nurse or other home services: No Alcohol intake: current Alcohol intake frequency: holidays/special occasions only Patient Tobacco Use Status: Former Tobacco user Tobacco use type: Cigarette Years Smoked: (onset 12yo, 1ppd x 35yrs, 35pyh, quit 2017) Review of Systems Const All systems reviewed & are unremarkable except as noted in HPI and below Reports no additional complaints Resp Reports no additional complaints GI Reports no additional complaints Reports as per HPI Musc Reports no additional complaints Physical Exam Telemedicine evaluation Appropriate responses Regular breathing rate and rhythm HEENT Head: Yes normal to inspection Ears: hearing grossly normal bilaterally Eyes General: appearance normal, both eyes and all related structures Neck Neck: Yes normal visual inspection Chest Chest palpation & inspection: normal inspection of the chest Resp Effort & Inspection: normal respiratory effort and able to speak in complete sentences Telehealth Telehealth Location of provider rendering services: practice address Location of patient: address on file Patient Identification confirmed using: Name, : Yes Telehealth method: voice only Patient verbally consented to treatment: Yes Patient verbally consented to billing insurance company: Yes Patient informed of any privacy concerns related to visit: Yes Assessment & Plan Assessment & Plan (1) BPH (benign prostatic hyperplasia): Code(s): N40.0 - Benign prostatic hyperplasia without lower urinary tract symptoms Category: Medical (2) Erectile dysfunction: Code(s): N52.9 - Male erectile dysfunction, unspecified Category: Medical Qualifiers: Erectile dysfunction type: vasculogenic Vasculogenic erectile dysfunction type: due to arterial insufficiency Qualified Code(s): N52.01 - Erectile dysfunction due to arterial insufficiency (3) Low libido: Code(s): R68.82 - Decreased libido Category: Medical Plan Six-month follow-up PSA Orders: Orders Prostate Specific Antigen 6 Months N40.0 - Benign prostatic hyperplasia without lower urinary tract symptoms Patient Instructions: This note is constructed using voice recognition software. While every effort has been made to ensure accuracy senior it engineer errors may have been included. Imaging studies, laboratory and physical exam results were discussed and reviewed in detail. No major barriers to patient understanding were identified. An opportunity to ask questions regarding the treatment plan was provided. All questions were answered. The patient expressed understanding and agreement with the above treatment plan. The patient is aware they should contact our office by phone for worsening of their current condition or the appearance of new urologic symptoms. Compliance is encouraged with any medications and followup testing that is ordered. It is a privilege to participate in the urologic care of your patient. If you have any questions or concerns regarding treatment for the above conditions, or other urologic issues, please do not hesitate to contact me. The office telephone contact is [phone]. Sincerely, Dr Cb Thayer MD, [facility] - Urology Compassionate Specialist Care for the Genitourinary System Coding Level of Care Code Tele Est Pt Level 4 (36983) Complex visit Add On G2211 Diagnoses BPH (benign prostatic hyperplasia) N40.0 Erectile dysfunction due to arterial insufficiency N52.01 Erectile dysfunction type: vasculogenic Vasculogenic erectile dysfunction type: due to arterial insufficiency Low libido R68.82
--- OUTSIDE RECORDS SUMMARY | 2025-06-15 19:41 | XMS_ITS | Encounter Summary ---
Author Organization [employer] Address [address] [place] [address] [place], [place] [address] Care Team Providers Care Financial Sales Assistant Name Role Phone Kassie Lauren MD Primary Care Provider [phone] Encounter Details Date Type Department Care Team ([facility] Description 04/16/2025 Results Follow-Up [facility] CHC MED & PEDS [address] [place] [address] Kassie Lauren MD [address] [place] [address] US Head Neck Soft Tissue Social History Tobacco Use Types Packs/Day Years [...] documented as of this encounter Care Teams Financial Sales Assistant Relationship Specialty Start Date End Date Kassie Lauren MD [address] [place] [address] PCP - General Internal Medicine 07/12/18 documented as of this encounter
--- OUTSIDE RECORDS SUMMARY | 2025-06-15 19:41 | XMS_ITS | Encounter Summary ---
Author Organization [employer] Address [address] [facility] 7t [place] [address] Care Team Providers Care Dietetics Director Name Role Phone Kassie Lauren MD Primary Care Provider [phone] Encounter Details Date Type Department Care Team ([facility] st Contact Info) Description 06/11/2025 Orders Only [facility] CHC MED & PEDS [address] [place], [place] [id number] Provider, MD Cheryl Social History Tobacco Use Types Packs/Day Years [...] Procedure Name Priority Date/Time Associated Diagnosis Comments CT ANGIOGRAM ABDOMEN PELVIS W CONTRAST Routine 05/21/2025 documented in this encounter Results * CT ANGIOGRAM ABDOMEN PELVIS W CONTRAST (05/21/2025) Anatomical Region Laterality Modality Body, Pelvis, Abdomen Computed T omography us Historical Provider MD JONES CT PROCEDURES Final R esult documented in this encounter Visit Diagnoses Not on filedocumented in this encounter Additional Health Concerns Assessment Noted Time PHQ-9 Depression Total Score: 5 10/21/19 25 4:37 PM EDT documented as of this encounter Care Teams Dietetics Director Relationship Specialty Start Date End Date Kassie Lauren MD [address] [place] [id number] PCP - General Internal Medicine 07/12/18 documented as of this encounter
--- OUTSIDE RECORDS SUMMARY | 2025-06-15 19:41 | XMS_ITS | Clinical Summary ---
Author Organization [facility] Address [address] [place] [address] Care Team Providers Care Automation Qtp Tester Name Role Phone Kassie Lauren Primary Care Provider [phone] Allergies Active Allergy Reactions Criticality Noted Date Comments Hydrochlorothiazide Tongue Disorder High 12/23/2018 Other reaction(s): Swelling of throat, Tongue swelling Lisinopril Unknown 02/20/2013 Other reaction(s): Angioedema Medications amLODIPine (NORVASC) 5 mg tablet SMARTSI Tablet(s) By Mouth Daily 5 Active aspirin 81 mg EC tablet Take 81 mg by mouth daily. Active atorvastatin (LIPITOR) 80 mg tablet Take 80 mg by mouth daily. 4 Active furosemide (LASIX) 20 mg tablet 20 mg. 5 Active gabapentin (NEURONTIN) 800 mg tablet Take 800 mg by mouth. 5 10/21/19 26 Active hydrOXYzine (VISTARIL) 50 mg capsule SMARTSI-2 Capsule(s) By Mouth Every Night PRN Active isosorbide mononitrate ER (IMDUR) 60 mg tablet SMARTSI Tablet(s) By Mouth Twice Daily 5 Active LORazepam (ATIVAN) 0.5 mg tablet SMARTSI Tablet(s) By Mouth Twice Daily PRN 5 Active Wegovy 0.25 mg/0.5 mL pen injector SMARTSI.2 5 Milligram(s) SUB-Q Once a Week 5 Active triamcinolone acetonide (KENALOG) 0.1% cream SMARTSIG:Top ical Morning-Nigh t PRN Active losartan (COZAAR) 50 mg tablet Take 0.5 tablets (25 mg total) by mouth once a day. 15 tablet 5 Active metoprolol tartrate (LOPRESSOR) 50 mg tablet Take 1 tablet (50 mg total) by mouth 2 times a day. 60 tablet 5 Active acetaminophen (TYLENOL) 325 mg tablet Take 2 tablets (650 mg total) by mouth every 6 hours. 240 tablet 5 Active clopidogreL (PLAVIX) 75 mg tablet Take 1 tablet (75 mg total) by mouth once a day. 90 tablet [address] (PROTONIX) 40 mg tablet Take 1 tablet (40 mg total) by mouth once a day. 30 tablet 2 5 07/19/19 26 Active senna (SENOKOT) 8.6 mg tablet Take 2 tablets (17.2 mg total) by mouth daily as needed for constipation . 60 tablet 5 Active methocarbamoL (ROBAXIN) 500 mg tablet Take 1 tablet (500 mg total) by mouth 4 times a day as needed for muscle spasms. 120 tablet 5 05/21/20 25 Active Problems Problem Noted Date Diagnosed Date Juxtarenal abdominal aortic aneurysm (AAA) witho ut rupture 04/18/2025 Coronary arteriosclerosis in ute artery 03/28 ROSS (obstructive sleep apnea) 2025 Aneurysm of left common iliac artery 02/26/2025 Anxiety 02/12/2025 AAA (abdominal aortic aneurysm) 02/12/2025 Chronic stable angina 11/02/2022 Hypertension 03/14/2015 Hyperlipidemia 03/14/2015 Obesity, Class III, BMI 40-49.9 (morbid obesity) 03/14/2015 Depressive disorder 11/17/2006 Overview (2025): Ginger Hinojosa in [place] NEEDS [facility] Tobacco use disorder 08/26/2006 Encounters Date Type Department Care Team Description 05/22/2025 Telephone [facility] Vascular Surgery [address] [place] [phone] Law Office Assistant: Stewart Rubin MD 30 day CTA 05/21/2025 11:20 AM EST Follow-Up [facility] Vascular Surgery [address] [place] [address] Law Office Assistant: Stewart Rubin MD Brown, Stacy, [place] Juxtarenal abdominal aortic aneurysm (AAA) without rupture (Primary Dx) 05/21/2025 10:11 AM EST - 05/21/2025 11:59 PM EST Hospital Encounter [facility] [place] [address] [place] [address] Juxtarenal abdominal aortic aneurysm (AAA) without rupture Discharge Disposition: Home or Self Care (01) 04/30/2025 8:30 AM EDT Follow-Up [facility] Vascular Surgery [address] [place] [phone] Law Office Assistant: Mayra Palumbo NP Juxtarenal abdominal aortic aneurysm (AAA) without rupture (Primary Dx); Aneurysm of left common iliac artery 04/25/2025 Telephone [facility] Vascular Surgery [address] [place] [phone] Law Office Assistant: Stewart Rubin MD Post-op Call 04/18/2025 8:34 AM EDT Anesthesia Event [facility] Operating Room [address] [place] [phone] Amparo Donnelly MD Mitchon, Gregory J., MD 04/18/2025 8:05 AM EDT - 04/18/2025 1:10 PM EDT Surgery [facility] Operating Room [address] [place] [phone] Stewart uV MD ENDOVASCULAR REPAIR VISCERAL AORTA AND INFRARENAL ABDOMINAL USING GRAFTS 4 Branches [[id number] (CPT )] 04/18/2025 5:57 AM EDT - 04/19/2025 4:02 PM EDT Hospital Encounter [facility] [address] [place] [address] Stewart Vu MD Juxtarenal abdominal aortic aneurysm (AAA) without rupture Discharge Disposition: Home or Self Care () from Last 3 Months Immunizations Immunization Administration Dates Next Due INFLUENZA, SPLIT VIRUS, TRIVALENT, PF 04/19/2025 (Deferred: Patient Refused) Family History Medical History Relation Name Comments Other Mother No pertinent fa bernabe history Relation Name Status Comments Father Alive Mother Alive Social History Tobacco Use Types Packs/Day Years Used Date Smoking Tobacco: Former Cigarettes Smokeless Tobacco: Never Tobacco Cessation:Counseling Given: Not Answered Comments:: Alcohol Use Standard Drinks/Week Comments Not Currently 0 (1 standard drink = 0.6 oz pur e alcohol) Hunger Vital Sign Answer Date Recorded Within the past 12 months, y ou worried that your food would run out before you got the money to buy more. Never true 04/18/20 25 Within the past 12 months, t he food you bought just didn't last and you didn't have money to get more. Never true 04/18/2025 [facility] Utilities Answer Date Recorded In the past 12 months has th e electric, gas, oil, or water [employer] threatened to shut off services in your home? Yes 04/18/2025 Transportation Answer Date Recorded In the past 12 months, has l ack of reliable transportation kept you from medical appointments, meetings, work or from getting things needed for daily living? No 04/18/2025 Housing Answer Date Recorded Housing Risk Low 2 04/18/2025 Housing Risk Medium Not on file 04/18/2025 Housing Risk High Not on file 04/18/2025 What is your living situation today? LSSTEADY 04/18/2025 Sex and Gender Information Value Date Recorded Sex Assigned at Male 04/18/2025 5:56 AM EDT Legal Sex Male 6:51 PM EDT Gender Identity Male 03/01/2025 9:23 AM EDT Sexual Orientation Straight 03/01/2025 9: 23 AM EDT Last Filed Vital Signs Vital Sign Reading Time Taken Comments Blood Pressure 112/74 05/21/2025 10:59 AM EST Pulse 92 05/21/2025 10:59 AM EST Temperature 36.6 C (97.9 F) 04/30/2025 8:16 AM EDT Respiratory Rate 16 05/21/2025 10:59 AM EST Oxygen Saturation 94% 05/21/2025 10:59 AM EST Inhaled Oxygen Concentration - - Weight 118.4 kg (261 lb) 05/21/2025 10:59 AM EST Height 188 cm (6' 2 ) 05/21/2025 10:59 AM EST Body Mass Index 33.51 05/21/2025 10:59 AM EST Plan of Treatment Upcoming Encounters Date Type Department Care Team (Late st Contact Info) Description 11/26/2025 8:45 AM EDT Appointment [facility] [address] [place] [address] 11/26/2025 9:20 AM EDT Follow-Up [facility] Vascular Surgery [address] [place] [address] Law Office Assistant: Stewart Rubin MD [address], [place] [phone] Health Maintenance Due Date Last Done Comments Cologuard 1969 Colon Cancer Screening 1969 Colonoscopy 1969 FOBT / Fit Test 1969 Hepatitis C Screening 1969 Sigmoidoscopy 1969 Hepatitis B Vaccines (1 of 3 - 19+ 3-dose series) 1988 Pneumococcal Vaccine: 50+ Ye ars (1 of 2 - PCV) 1988 DTaP,Tdap,and Td Vaccines (1 - Tdap) 1991 Zoster Vaccines (1 of 2) 2019 Alcohol/Substance Use Screening 07/12/2024 Depression Screening and Follow-Up 07/12/2024 Influenza Vaccine (#1) 2025 04/26/2014 COVID-19 Vaccine (1 - 2024-2 6 season) 2025 CT Lung Cancer Screening (Baseline) 04/16/2026 04/16/2025 Social Drivers of Health Shruthi ual Screening 04/18/2026 04/18/2025 Basic Metabolic Panel 04/19/2026 04/19/2025 , 04/18/2025, 04/06/2025, Additional history exists Diabetes Screening 04/19/2028 04/19/2025, 1 , 04/18/2025, Additional history exists HIV Screening Completed 01/06/2021, 01/06/2021 Abdominal Aortic Aneurysm (A AA) Screening Completed 05/21/2025, 05/21/2025, 05/21/2025, Additional history exists Medical Devices Implanted Type Area Continuous Yarn Dyeing Machine Operator Device Identifier Shelf Expiration Date Model / Serial / Lot Graft Endovascular Iliac Leg Aaa [id number] Zenith Spiral-Z - [id number] Implanted:Qty: 1 on 04/18/2025 by Stewart Vu MD at [facility] Graft [employer] 08/16/2027 [id number] / / [id number] Description:Left iliac Graft Endovascular Iliac Leg Aaa [id number] Zenith Spiral-Z - [id number] Implanted:Qty: 1 on 04/18/2025 by Stewart Vu MD at [facility] Graft [employer] 03/30/2027 [id number] / / [id number] Description:Right iliac Graft Endovascular Aaa Reinforced Fenestrated Priximal Custom - [id number] Implanted:Qty: 1 on 04/18/2025 by Stewart Vu MD at [facility] Graft N/A: Aorta [employer] 03/08/2028 [id number] / / [id number] Graft Aortic Aneurysm Leg Body Proximal Bifurcated [id number] Zenith - Study - [id number] Implanted:Qty: 1 on 04/18/2025 by Stewart Vu MD at [facility] Graft N/A: Aorta [employer] 03/08/2028 [id number] / / [id number] Graft Endovascular Iliac Leg Aaa [id number] Zenith Spiral-Z - [id number] Implanted:Qty: 1 on 04/18/2025 by Stewart Vu MD at [facility] Graft [employer] 04/27/2027 [id number] / / [id number] Description:Left iliac System Closure And Repair Suture-Mediated Perclose Prostyle - S0 - [id number] Implanted:Qty: 1 on 03/08/2025 by Stewart Vu MD at [facility] Implant Right: Vein [employer] [id number] 01/08/2027 [id number] / 0 / [id number] System Closure And Repair Suture-Mediated Perclose Prostyle - S0 - [id number] Implanted:Qty: 1 on 03/08/2025 by Stewart Vu MD at [facility] Implant Right: Vein [employer] [id number] 01/08/2027 64946-45 / 0 / [id number] Vascular Plug For Peripheral Vascular Occlusion 12mm - S0 - [id number] Implanted:Qty: 1 on 03/08/2025 by Stewart Vu MD at [facility] Implant Right: Vein [facility] [employer] [id number] 01/08/2029 9-[id number] 2 0 / [id number] System Closure And Repair Suture-Mediated Perclose Prostyle - [id number] Implanted:Qty: 2 on 04/18/2025 by Nury Marino MD at [facility] Implant Right: Groin [employer] 02/08/2027 [id number] / / [id number] System Closure And Repair Suture-Mediated Perclose Prostyle - [id number] Implanted:Qty: 1 on 04/18/2025 by Nury Marino MD at [facility] Implant Left: Groin [employer] 02/08/2027 [id number] / / [id number] System Closure And Repair Suture-Mediated Perclose Prostyle - [id number] Implanted:Qty: 1 on 04/18/2025 by Nury Marino MD at [facility] Implant Left: Groin [employer] 01/08/2027 [id number] / / [id number] Stent Covered [id number] Icast - [id number] - [id number] Implanted:Qty: 1 on 04/18/2025 by Stewart Vu MD at [facility] Stent [employer], Milk 07/21/2027 [id number] / [id number] / Description:Right renal Stent Covered [id number] [employer]cast - [id number] - [id number] Implanted:Qty: 1 on 04/18/2025 by Stewart Vu MD at [facility] Stent [employer], Milk 09/13/2027 [id number] / [id number] / Description:Left renal Stent Covered [id number] [employer]cast - [id number] - [id number] Implanted:Qty: 1 on 04/18/2025 by Stewart Vu MD at [facility] Stent [employer], Milk 09/12/2027 12767 / [id number] / Description:Celiac Stent Covered [id number] Icast - [id number] - [id number] Implanted:Qty: 1 on 04/18/2025 by Stewart Vu MD at [facility] Stent [employer], Milk 09/06/2027 40318 / [id number] / Description:SMA Stent Self-Expanding Vascular [id number] Innova - [id number] Implanted:Qty: 1 on 04/18/2025 by Stewart Vu MD at [facility] Stent [employer] 02/12/2029 [id number] / / [id number] Description:Left renal Procedures * Due to [place] state law, this organization might not be sharing negative HIV tests. Procedure Name Priority Date/Time Associated Diagnosis Comments CT ANGIOGRAM ABDOMEN PELVIS W WO CONTRAST Routine 05/21/2025 10:47 AM EST Juxtarenal abdominal aortic aneurysm (AAA) without rupture PHOSPHORUS Routine 04/19/2025 1:57 AM EDT MAGNESIUM Routine 04/19/2025 1:57 AM EDT BASIC METABOLIC PANEL Routine 04/19/2025 1:57 AM EDT CBC Routine 04/19/2025 1:57 AM EDT XR CHEST 1 VW Routine 04/18/2025 1:51 PM EDT CBC Routine 04/18/2025 1:28 PM EDT BASIC METABOLIC PANEL Routine 04/18/2025 1:28 PM EDT MAGNESIUM Routine 04/18/2025 1:28 PM EDT PHOSPHORUS Routine 04/18/2025 1:28 PM EDT INVASIVE VASCULAR PROCEDURE Routine 04/18/2025 12:48 PM EDT Juxtarenal abdominal aortic aneurysm (AAA) without rupture POCT HR-ACT Routine 04/18/2025 11:34 AM EDT POCT HR-ACT Routine 04/18/2025 11:09 AM EDT POCT I-STAT ACTIVATED CLOTTING TIME Routine 04/18/2025 11:07 AM EDT POCT HR-ACT Routine 04/18/2025 10:40 AM EDT POCT HR-ACT Routine 04/18/2025 10:09 AM EDT POCT HR-ACT Routine 04/18/2025 9:55 AM EDT POCT I-STAT CHEMISTRY PANEL W/ABG Routine 04/18/2025 9:51 AM EDT POCT HR-ACT Routine 04/18/2025 9:42 AM EDT POCT HR-ACT Routine 04/18/2025 9:26 AM EDT AN CV TLIC DUMMY PERFORMABLE Routine 04/18/2025 9:11 AM EDT POCT HR-ACT Routine 04/18/2025 8:58 AM EDT MI VISCER AND INFRARENAL ABDOM AORTA 4+ PROSTHESIS 04/18/2025 8:12 AM EDT Juxtarenal abdominal aortic aneurysm (AAA) without rupture Special Needs ROSS uanble to tolerate CPAPMother has delayed emergence with colectomy ARTERIAL LINE PLACEMENT Routine 04/18/2025 7:33 AM EDT PREPARE RBC STAT 04/18/2025 7:30 AM EDT PREPARE RBC STAT 04/18/2025 7:28 AM EDT POCT GLUCOSE Routine 04/18/2025 6:39 AM EDT ECG 12-LEAD Routine 04/06/2025 7:32 AM EDT [...] PREPARE RBC Routine 04/02/2025 5:48 PM EDT from Last 3 Months Results * Due to [place] state law, this organization might not be sharing negative HIV tests. * CT ANGIOGRAM ABDOMEN PELVIS W WO CONTRAST (05/21/2025 10:47 AM EST) Anatomical Region Laterality Modality Body Computed Tomogra phy 05/21/2025 12:2 9 PM EST Impressions 06/08/2025 2:41 PM EST s/p 4v FEVAR with no complication. See details and findings above If this radiology report contains a blank impression section, it is an incomplete radiology report. Please contact the interpreting radiologist or applicable radiology division as soon as possible to obtain the completed interpretation. Workstation ID: [id number] Narrative 06/08/2025 2:41 PM EST EXAMINATION: CT ANGIOGRAM ABDOMEN PELVIS W WO CONTRAST INDICATION: Aortic aneurysm (AAA), post-op s/p FEVAR/LCIA aneurysm repair I71.42 - I10 - Juxtarenal abdominal aortic aneurysm, without rupture TECHNIQUE: Images of the abdomen and pelvis were obtained without intravenous contrast. Subsequently, intravenous contrast was administered and arterial phase images were obtained. Coronal and sagittal reformats were generated. 3D postprocessed reformats were also created. COMPARISON: Outside CTA abdomen pelvis 01/05/2025. FINDINGS: LOWER THORAX: The visualized lung bases are clear. VASCULAR: s/p 4v FEVAR. No endoleak, patent four fenestration. 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 The distal infrarenal aneurysm is 6.5 x 5.4 cm, compared to 6.4 x 5.3 cm. No complication. No GILA endoleak. Stable 3.6 cm left common excluded iliac aneurysm. Left internal iliac artery embolization. Patent limbs and iliofemoral arteries. HEPATOBILIARY: No focal hepatic lesions. No biliary ductal dilatation. Normal gallbladder. SPLEEN: No splenomegaly. PANCREAS: No focal masses or ductal dilatation. ADRENAL GLANDS: No adrenal nodules. KIDNEYS/URETERS: No hydronephrosis, calculi, or solid mass lesions. GI TRACT: No distention or wall thickening. PERITONEUM/RETROPERITONEUM: No ascites or free air. LYMPH NODES: No lymphadenopathy. PELVIC ORGANS/BLADDER: Prostatic calcifications BONES AND SOFT TISSUES: Unremarkable. Resulting Agency Comment [id number] Procedure Note Pranav Ellison MD - 06/08/2025 EXAMINATION: CT ANGIOGRAM ABDOMEN PELVIS W WO CONTRAST INDICATION: Aortic aneurysm (AAA), post-op s/p FEVAR/LCIA aneurysm pzsedkO88.42 - I10 - Juxtarenal abdominal aortic aneurysm, without rupture TECHNIQUE: Images of the abdomen and pelvis were obtained withoutintravenous contrast. Subsequently, intravenous contrast was administeredand arterial phase images were obtained. Coronal and sagittal reformatswere generated. 3D postprocessed reformats were also created. COMPARISON: Outside CTA abdomen pelvis 01/05/2025. FINDINGS: LOWER THORAX: The visualized lung bases are clear. VASCULAR: s/p 4v FEVAR. No endoleak, patent four fenestration. Occlusion/exclusion of the right lower pole accessory renal artery withexpected cortical infarct. The distal infrarenal aneurysm is 6.5 x 5.4 cm, compared to 6.4 x 5.3 cm.No complication. No GILA endoleak. Stable 3.6 cm left common excluded iliac aneurysm. Left internal iliacartery embolization. Patent limbs and iliofemoral arteries. HEPATOBILIARY: No focal hepatic lesions. No biliary ductal dilatation.Normal gallbladder. SPLEEN: No splenomegaly. PANCREAS: No focal masses or ductal dilatation. ADRENAL GLANDS: No adrenal nodules. KIDNEYS/URETERS: No hydronephrosis, calculi, or solid mass lesions. GI TRACT: No distention or wall thickening. PERITONEUM/RETROPERITONEUM: No ascites or free air. LYMPH NODES: No lymphadenopathy. PELVIC ORGANS/BLADDER: Prostatic calcifications BONES AND SOFT TISSUES: Unremarkable. IMPRESSION: s/p 4v FEVAR with no complication. See details and findings above If this radiology report contains a blank impression section, it is anincomplete radiology report. Please contact the interpreting radiologistor applicable radiology division as soon as possible to obtain thecompleted interpretation. Workstation ID: [id number] Angelique [facility] PROCEDURES Final Result * (ABNORMAL) CBC (04/19/2025 1:57 AM EDT) Only the most recent of2 resultswithin the time period is included. WBC 7.9 3.8 - 10.8 10*3/uL 04/19/2025 2:26 AM EDT [facility] RBC 4.11(L) 4.20 - 5.80 10*6/uL 04/19/2025 2:26 AM EDT [facility] Hemoglobin 12.5(L) 13.2 - 17.1 g/dL 04/19/2025 2:26 AM EDT [facility] Hematocrit 37.3(L) 38.5 - 50.0 % 04/19/2025 2:26 AM EDT [facility] [employer] [facility] MCV 90.8 80.0 - 100.0 fL 04/19/2025 2:26 AM EDT [facility] [employer] [facility] MCH 30.4 27.0 - 33.0 pg 04/19/2025 2:26 AM EDT [facility] - [employer] [facility] MCHC 33.5 32.0 - 36.0 g/dL 04/19/2025 2:26 AM EDT [facility] [employer] [facility] RDW 13.2 11.0 - 15.0 % 04/19/2025 2:26 AM EDT [facility] [employer] [facility] Platelets 154 140 - 400 10*3/uL 04/19/2025 2:26 AM EDT [facility] [employer] [facility] MPV 9.9 7.5 - 12.5 fL 04/19/2025 2:26 AM EDT [facility] [employer] [facility] Blood Structure of peripheral vein / Unknown Venipuncture / Unknown 04/19/2025 1:57 AM EDT 04/19/2025 2:14 AM EDT Stewart Vu MD LAB BLOOD ORDERABLES Final Re sult [facility] [employer] [facility] [address] [place] [address], * Phosphorus (04/19/2025 1:57 AM EDT) Only the most recent of2 resultswithin the time period is included. Phosphorus 3.4 2.5 - 4.5 mg/dL 04/19/2025 2:44 AM EDT [facility] [employer] [facility] Blood Structure of peripheral vein / Unknown Venipuncture / Unknown 04/19/2025 1:57 AM EDT 04/19/2025 2:14 AM EDT Stewart Vu MD LAB BLOOD ORDERABLES Final Re sult Performing Organization Address [facility] Co de Phone Number [facility] [address] [place] [address] * Magnesium (04/19/2025 1:57 AM EDT) Only the most recent of2 resultswithin the time period is included. MG 2.2 1.6 - 2.4 mg/dL 04/19/2025 2:44 AM EDT [facility] Blood Structure of peripheral vein / Unknown Venipuncture / Unknown 04/19/2025 1:57 AM EDT 04/19/2025 2:14 AM EDT Stewart Vu MD LAB BLOOD ORDERABLES Final Re sult Performing Organization Address [facility] Co de Phone Number [facility] [address] [place] [address] * (ABNORMAL) Basic Metabolic Panel (04/19/2025 1:57 AM EDT) Only the most recent of2 resultswithin the time period is included. NA 139 135 - 145 mmol/L 04/19/2025 2:44 AM EDT [facility] K 3.8 3.5 - 5.3 mmol/L 04/19/2025 2:44 AM EDT [facility] Cl 105 97 - 110 mmol/L 04/19/2025 2:44 AM EDT [facility] CO2 27 22 - 32 mmol/L 04/19/2025 2:44 AM EDT [facility] BUN 20 7 - 23 mg/dL 04/19/2025 2:44 AM EDT [facility] Creatinine 1.06 0.60 - 1.30 mg/dL 04/19/2025 2:44 AM EDT [facility] Glucose 106(H) 65 - 99 mg/dL 04/19/2025 2:44 AM EDT [facility] Calcium 8.1(L) 8.6 - 10.5 mg/dL 04/19/2025 2:44 AM EDT [facility] Anion Gap 7 5 - 15 04/19/2025 2:44 AM EDT [facility] eGFR 82 >=60 mL/min/1. 73m2 04/19/2025 2:44 AM EDT [facility] Comment:The estimated glomer ular [...] of Race in Diagnosing Kidney Disease . Blood Structure of peripheral vein / Unknown Venipuncture / Unknown 04/19/2025 1:57 AM EDT 04/19/2025 2:14 AM EDT us Stewart Vu MD LAB BLOOD ORDERABLES Final Re sult [facility] [address] [place] [address], * X-Ray Chest 1 View (04/18/2025 1:51 PM EDT) Anatomical Region Laterality Modality Body Computed Radiogr aphy 04/20/2025 9:27 AM EDT Impressions 04/20/2025 9:27 AM EDT Heart normal with mild pulmonary congestion. Right IJ temporary transvenous pacer in place with tip in the mid SVC. No pneumothorax. Otherwise negative. If this radiology report contains a blank impression section, it is an incomplete radiology report. Please contact the interpreting radiologist or applicable radiology division as soon as possible to obtain the completed interpretation. Workstation ID: [id number] Narrative 04/20/2025 9:27 AM EDT COMPARISON: None FINDINGS AND Resulting Agency Comment [id number] Procedure Note Salty Baron MD - 04/20/2025 COMPARISON: None FINDINGS AND IMPRESSION: Heart normal with mild pulmonary congestion. Right IJ temporarytransvenous pacer in place with tip in the mid SVC. No pneumothorax.Otherwise negative. If this radiology report contains a blank impression section, it is anincomplete radiology report. Please contact the interpreting radiologistor applicable radiology division as soon as possible to obtain thecompleted interpretation. Workstation ID: [id number] us Stewart Vu MD IMG XR PROCEDURES Final Resul t * HYBRID OR INTRAOPERATIVE ANGIOGRAPHY (04/18/2025 12:48 PM EDT) Anatomical Region Laterality Modality Other Narrative 04/18/2025 1:06 PM EDT Please view the Op Note for the result of this procedure. us Stewart Vu MD CV INVASIVE VASCULAR PROCEDUR ES Final Result * POCT HR-ACT, interfaced (04/18/2025 11:34 AM EDT) Only the most recent of8 resultswithin the time period is included. ACT Average, POCT 279 Seconds 025 11:02 PM EDT [facility] Comment: Therapeutic Range: Baseline: 75-127 Cardiac Catherization Lab: 200-300 EP Lab: 200-400 Perfusion and OR - Cardiac Surgery: 450 Valve replacement: 480 Blood 04/18/2025 11:3 4 AM EDT 04/18/2025 11:02 PM EDT us Stewart Vu MD LAB POCT ORDERABLES - DEVICE Final Result [facility] [address] [place] [address], [place] * POCT I-STAT Activated Clotting Time, interfaced (04/18/2025 11:07 AM EDT) Pathologist [facility] Sample Type, POCT Arterial 04/18/2025 5:38 PM EDT [facility] ACT Average, POCT 303 See Comment Seconds 04/18/2025 5:38 PM EDT [facility] Comment: Therapeutic Range: Baseline: 75-127 Cardiac Catherization Lab: 200-300 EP Lab: 200-400 Perfusion and OR - Cardiac Surgery: 450 Valve replacement: 480 Blood 04/18/2025 11:0 7 AM EDT 04/18/2025 5:38 PM EDT us Stewart Vu MD LAB POCT ORDERABLES - DEVICE Final Result [facility] [address] [place] [address], [place] * (ABNORMAL) POCT I-STAT Chemistry Panel W/ABG, interfaced (04/18/2025 9:51 AM EDT) Pathologist [facility] Sample Type, POCT Arterial 04/18/2025 5:38 PM EDT [facility] Sodium, POCT 142 135 - 145 mmol/L 04/18/2025 5:38 PM EDT [facility] Potassium, POCT 3.3(L) 3.5 - 5.3 mmol/L 04/18/2025 5:38 PM EDT [facility] Glucose, POCT 84 70 - 99 mg/dL 04/18/2025 5:38 PM EDT [facility] iCA, POCT 4.4(L) 4.6 - 5.3 mg/dL 04/18/2025 5:38 PM EDT [facility] HCT, POCT 36(L) 42 - 52 % 04/18/2025 5:38 PM EDT [facility] pH, POCT 7.42 7.35 - 7.45 04/18/2025 5:38 PM EDT [facility] pCO2, POCT 34.5(L) 35 - 45 mmHg 04/18/2025 5:38 PM EDT [facility] pO2, POCT 193(H) 80 - 105 mmHg 04/18/2025 5:38 PM EDT [facility] Base Excess, POCT -2(L) 0 - 3 mmol/L 04/18/2025 5:38 PM EDT [facility] HCO3, POCT 22.2 21 - 28 mmol/L 04/18/2025 5:38 PM EDT [facility] TCO2, POCT 23 23 - 27 mmol/L 04/18/2025 5:38 PM EDT [facility] Saturated O2, POCT 100(H) 95 - 98 % 04/18/2025 5:38 PM EDT [facility] FIO2, POCT 60 % 04/18/2025 5:38 PM EDT [facility] Patient Temp, POCT 36.0 degrees 04/18/2025 5:38 PM EDT [facility] Tidal Volume, POCT 600 ml 04/18/2025 5:38 PM EDT [facility] Gomez's Test, POCT N/A 04/18/2025 5:38 PM EDT [facility] Blood 04/18/2025 9:51 AM EDT 04/18/2025 5:38 PM EDT Narrative [facility] - 04/18/2025 5:38 PM EDT i-STAT analyzer cannot determine presence of hemolysis in sample us Stewart Vu MD LAB POCT ORDERABLES - DEVICE Final Result [facility] [address] [place] [address], [place] * AN CV TLIC DUMMY PERFORMABLE (04/18/2025 9:11 AM EDT) Amparo Fry MD - 04/18/2025 9:11 AM EDT Amparo Donnelly MD 04/18/2025 9:33 AM Central Venous Line Date/Time: 04/18/2025 9:11 AM in the OR Indication: CVP monitoring, need for frequent phlebotomy and administration of vasoactive agents Anesthesia Staff Authorized by: Amparo Donnelly MD Performed by: Cassidy Herrera CRNA Anesthesiologist: Amparo Donnelly MD Other anesthesia staff: CRISTO Nix Performed: anesthesiologist and other anesthesia staff I was present during this procedure. Preanesthetic Checklist: 2 patient identifiers IV checked site marked risks and benefits discussed monitors and equipment checked pre-op evaluation anesthesia consent all elements of maximal sterile barrier technique followed patient position confirmed timeout performed hand hygiene performed Procedure Detail Ultrasound #1 Probe: Linear [id number] The patient was placed in Trendelenburg position. The right internal jugular vein was prepped. The site was prepped with Chloraprep. The skin prep agent completely dried prior to procedure. A 9 Fr (size), 10 (length), introducer a Cordis Triple Lumen Infusion Catheter (TLIC) was placed. Number of attempts at approach: 1 During the procedure, the following specific steps were taken: target vein identified, needle advanced into vein and blood aspirated and guidewire advanced into vein. Seldinger technique used Ultrasound-Guided/Needle Placement/Images Retained: no Intravenous verification was obtained by ultrasound and venous blood return. Line Secured: CHG dressing and suture During the procedure the patient experienced: patient tolerated procedure well with no complications. us Amparo Donnelly MD ANESTHESIA ORDERABLES Final Resu lt * Arterial Line (04/18/2025 7:33 AM EDT) Amparo Fry MD - 04/18/2025 7:33 AM EDT Amparo Donnelly MD 04/18/2025 9:33 AM Arterial Line Date/Time: 04/18/2025 7:33 AM Patient Location: pre-op Ultrasound-Guided/Images Retained: no Indication: continuous blood pressure monitoring and blood sampling needed Anesthesia Staff Authorized by: Amparo Donnelly MD Performed by: Cassidy Herrera CRNA Anesthesiologist: Amparo Donnelly MD COMMUNITY ENGAGEMENT MANAGER: Cassidy Herrera CRNA Other anesthesia staff: CRISTO Nix Performed: other anesthesia staff I was not present but was immediately available. Preanesthetic Checklist 2 patient identifiers IV checked site marked risks and benefits discussed monitors and equipment checked pre-op evaluation anesthesia consent all elements of maximal sterile barrier technique followed patient position confirmed timeout performed hand hygiene performed Procedure Detail: Ultrasound #1 Probe: Linear [id number] Catheter Size: Catheter Length: 10 cm Catheter Type: Micropuncture Laterality: Right Site: radial artery. The site was prepped with Chloraprep. The skin prep agent completely dried prior to procedure. Line Secured By: CHG dressing and tape Number of attempts at approach: 1 Ultrasound-guided needle placement/images retained: no Ultrasound-guided vascular access/images retained: no Procedure time was exclusive of critical care time: yes Events: patient tolerated procedure well with no complications us Amparo Donnelly MD ANESTHESIA ORDERABLES Final Resu lt * Blood Bank: Prepare Red Blood Cells Transfusion indications: Active blood loss; Irradiated?: No; Special requirements: Leukoreduced: 2 Units (04/18/2025 7:30 AM EDT) Only the most recent of3 resultswithin the time period is included. Product Code S3802H91 [facility] Unit Number [id number] [facility] Unit ABO O [facility] Unit RH POS [facility] Crossmatch Compatible [facility] Dispense Status /Released [facility] Blood Expiration Date [facility] Blood Type Barcode 5100 [facility] Dispensed Volume 384 ML [facility] Product Code G9556B42 [facility] BLOO D B[facility] INF[facility] Unit Number [id number] [facility] BLOOD BANK INFCE Unit ABO O [facility] BLOOD BANK INF[facility] Unit RH POS [facility] BLOOD BANK INFCE Crossmatch Compatible [facility] BLOOD B[facility] INFCE Dispense Status /Released [facility] Blood Expiration Date [facility] Blood Type Barcode 5100 [facility]LOOD [facility] IN[facility] Dispensed Volume 277 ML [facility] Other 04/18/2025 7:30 AM EDT 04/06/2025 11:29 AM EDT Cassidy Herrera CRNA BLOOD BANK PRODUCT OR DERABLES Final Result Performing Organization Address [facility] Co de Phone Number BLOOD BANK INFCE [address] [place] [address], * (ABNORMAL) POCT Glucose, interfaced (04/18/2025 6:39 AM EDT) Glucose, POCT 100(H) 70 - 99 mg/dL 04/18/2025 6:41 AM EDT [facility] Comment: The taxonomist has not determined the efficacy of this test in Critically ill patients. [facility] defines Critically ill patients for the purpose of blood glucose monitoring (BGM) by glucometer, as patients meeting one or more of the following criteria: Hypotension- non-ICU patients (systolic blood pressure Less than 90 mmHg) due to shock Hypotension -ICU patients (Mean Arterial Pressure (MAP) <60 mmHg or systolic blood pressure < 90 mmHg due to shock Patients receiving Vasopressors (phenylephrine, vasopressin or norepinephrine) Anasarca In all locations, BGM test results should not be relied upon in the above situations, unless these results confirmed with lab-based glucose values. Blood 04/18/2025 6:39 AM EDT 04/18/2025 6:41 AM EDT Stewart Vu MD LAB POCT ORDERABLES - DEVICE Final Result Performing Organization Address [facility] Co de Phone Number [facility] [address] [place] [address], [place] * ECG 12 lead For Preop? Yes (04/06/2025 7:32 AM EDT) Ventricular Rate EKG 67 BPM MUSE EKG Atrial Rate 67 BPM MUSE EKG MI Interval 214 ms MUSE EKG QRS Interval 94 ms MUSE EKG QT Interval 440 ms MUSE EKG QTC Interval 464 ms MUSE EKG P [place] 36 degrees MUSE EKG R [place] 37 degrees MUSE EKG T Wave [place] 34 degrees MUSE EKG 04/06/2025 7:32 AM EDT 04/07/2025 2:53 PM EDT Impressions MUSE EKG - 04/07/2025 2:53 PM EDT SINUS RHYTHM WITH 1ST DEGREE A-V BLOCK OTHERWISE NORMAL ECG WHEN COMPARED WITH ECG OF 17-May-2015 11:24, [place] INTERVAL HAS INCREASED Confirmed by Lilia Carter ([id number]) on 04/07/2025 2:53:44 PM Narrative Procedure Note Lilia Carter MD - 04/07/2025 IMPRESSION: SINUS RHYTHM WITH 1ST DEGREE A-V BLOCK OTHERWISE NORMAL ECG WHEN COMPARED WITH ECG OF 17-May-2015 11:24, MI INTERVAL HAS INCREASED Confirmed by Lilia Carter ([id number]) on 04/07/2025 2:53:44 PM Karoline Martini TEACHER CCLC ECG ORDERABLES Final Result Performing Organization Address City/[facility]/ZIP Co de Phone Number MUSE EKG * Saleh Top, Urine (04/06/2025 7:21 AM EDT) Pathologist [facility] Extra Tube Hold for add-ons. 04/06/2025 12:05 PM EDT [facility] Comment:Auto resulted. Urine Urine specimen collection, clean catch / Unknown Non-Blood Collection / Unknown 04/06/2025 7:21 AM EDT 04/06/2025 9:46 AM EDT Karoline Martini TEACHER CCLC LAB URINE ORDERABLES F inal Result [facility] [address] [place] [id number], * Urinalysis W/Reflex to Microscopic & Culture (04/06/2025 7:21 AM EDT) Pathologist [facility] Color, Urine Light Yellow Colorless, Light Yellow, Yellow, Dark Yellow 04/06/2025 10:07 AM EDT [facility] Clarity, Urine Clear Clear 04/06/2025 10:07 AM EDT [facility] Specific [place], Urine 1.014 <1.030 04/06/2025 10:07 AM EDT [facility] pH, Urine 6.0 4.6 - 8.0 04/06/2025 10:07 AM EDT [facility] Protein, Urine Negative Negative 04/06/2025 10:07 AM EDT [facility] Glucose, Urine Normal Normal 04/06/2025 10:07 AM EDT [facility] Ketones, Urine Negative Negative 04/06/2025 10:07 AM EDT [facility] Bilirubin, Urine Negative Negative 04/06/2025 10:07 AM EDT [facility] Blood, Urine Negative Negative 04/06/2025 10:07 AM EDT [facility] Nitrite, Urine Negative Negative 04/06/2025 10:07 AM EDT [facility] Urobilinogen, Urine Normal Normal 04/06/2025 10:07 AM EDT [facility] Leukocyte Esterase, Urine Negative Negative 04/06/2025 10:07 AM EDT [facility] Urine Urine specimen collection, clean catch / Unknown Non-Blood Collection / Unknown 04/06/2025 7:21 AM EDT 04/06/2025 9:46 AM EDT us Karoline Martini TEACHER CCLC LAB URINE ORDERABLES F inal Result [facility] [address] [place] [address], * (ABNORMAL) CBC Auto Differential (04/06/2025 7:21 AM EDT) WBC 7.8 3.8 - 10.8 10*3/uL 04/06/2025 10:00 AM EDT [facility] RBC 5.03 4.20 - 5.80 10*6/uL 04/06/2025 10:00 AM EDT [facility] Hemoglobin 15.3 13.2 - 17.1 g/dL 04/06/2025 10:00 AM EDT [facility] Hematocrit 45.5 38.5 - 50.0 % 04/06/2025 10:00 AM EDT [facility] MCV 90.5 80.0 - 100.0 fL 04/06/2025 10:00 AM EDT [facility] MCH 30.4 27.0 - 33.0 pg 04/06/2025 10:00 AM EDT [facility] MCHC 33.6 32.0 - 36.0 g/dL 04/06/2025 10:00 AM EDT [facility] RDW 13.1 11.0 - 15.0 % 04/06/2025 10:00 AM EDT [facility] Platelets 250 140 - 400 10*3/uL 04/06/2025 10:00 AM EDT [facility] MPV 10.3 7.5 - 12.5 fL 04/06/2025 10:00 AM EDT [facility] Neutrophil % 67.7 % 04/06/2025 10:00 AM EDT [facility] Immature Grans % 0.5 0.0 - 0.9 % 04/06/2025 10:00 AM EDT [facility] Lymphocyte % 18.4 % 04/06/2025 10:00 AM EDT [facility] Monocyte % 9.1 % 04/06/2025 10:00 AM EDT [facility] Eosinophil % 3.3 % 04/06/2025 10:00 AM EDT [facility] Basophil % 1.0 % 04/06/2025 10:00 AM EDT [facility] Neutrophil # 5.31 1.50 - 7.80 10*3/uL 04/06/2025 10:00 AM EDT [facility] Immature Grans # 0.04(H) <=0.03 10*3/uL 04/06/2025 10:00 AM EDT [facility] Lymphocyte # 1.40 0.85 - 3.90 10*3/uL 04/06/2025 10:00 AM EDT [facility] Monocyte # 0.70 0.20 - 0.95 10*3/uL 04/06/2025 10:00 AM EDT [facility] Eosinophil # 0.30 0.02 - 0.50 10*3/uL 04/06/2025 10:00 AM EDT [facility] Basophil # 0.10 0.00 - 0.20 10*3/uL 04/06/2025 10:00 AM EDT [facility] nRBC % 0.0 /100 WBCs 04/06/2025 10:00 AM EDT [facility] nRBC # <0.01 <0.01 10*3/uL 04/06/2025 10:00 AM EDT [facility] Blood Structure of peripheral vein / Unknown Venipuncture / Unknown 04/06/2025 7:21 AM EDT 04/06/2025 9:46 AM EDT us Karoline Martini TEACHER CCLC LAB BLOOD ORDERABLES F inal Result [facility] [address] [id number], * Type and Screen (04/06/2025 7:21 AM EDT) ABO Blood Type O 04/06/2025 5:12 PM EDT [facility] RH Type Positive 04/06/2025 5:12 PM EDT [facility] Expiration Date/Time 2025-04-09 23:59 04/06/2025 5:12 PM EDT [facility] Antibody Screen Negative 04/06/2025 5:12 PM EDT [facility] Blood Structure of peripheral vein / Unknown Venipuncture / Unknown 04/06/2025 7:21 AM EDT 04/06/2025 11:29 AM EDT Karoline Martini TEACHER CCLC LAB BLOOD BANK TEST OR DERABLES Final Result [facility] [address] [id number], * (ABNORMAL) Comprehensive Metabolic Panel (04/06/2025 7:21 AM EDT) NA 141 135 - 145 mmol/L 04/06/2025 10:25 AM EDT [facility] K 3.8 3.5 - 5.3 mmol/L 04/06/2025 10:25 AM EDT [facility] Cl 106 98 - 107 mmol/L 04/06/2025 10:25 AM EDT [facility] CO2 22 22 - 32 mmol/L 04/06/2025 10:25 AM EDT [facility] Anion Gap 13 5 - 15 04/06/2025 10:25 AM EDT [facility] Glucose 82 65 - 99 mg/dL 04/06/2025 10:25 AM EDT [facility] Creatinine 0.86 0.60 - 1.30 mg/dL 04/06/2025 10:25 AM EDT [facility] Calcium 8.8 8.6 - 10.5 mg/dL 04/06/2025 10:25 AM ED [facility] Total Protein 7.0 6.0 - 8.0 g/dL 04/06/2025 10:25 AM EDT [facility] Albumin 4.0 3.5 - 5.2 g/dL 04/06/2025 10:25 AM ED [facility] Bilirubin, Total 0.4 0.2 - 1.2 mg/dL 04/06/2025 10:25 AM EDT [facility] Alkaline Phosphatase 127 35 - 129 U/L 04/06/2025 10:25 AM ED [facility] AST 32 10 - 40 U/L 04/06/2025 10:25 AM ED [facility] ALT 30 10 - 40 U/L 04/06/2025 10:25 AM [facility] BUN 20 7 - 23 mg/dL 04/06/2025 10:25 AM [facility] eGFR >90 >=60 mL/min/1. 73m2 04/06/2025 10:25 AM [facility] Comment:The estimated glomer ular [...] 2.1 - 4.2 g/dL 04/06/2025 10:25 AM [facility] A/G Ratio 1.3(L) 1.5 - 3.0 04/06/2025 10:25 AM [facility] Blood Structure of peripheral vein / Unknown Venipuncture / Unknown 04/06/2025 7:21 AM EDT 04/06/2025 9:46 AM EDT us Karoline Martini TEACHER CCLC LAB BLOOD ORDERABLES F inal Result [facility] [address] [place] [address], from Last 3 Months Insurance [facility] Advance Directives Documents on File Type Date Recorded Patient Cylinder Sander Operator Expl anation Health Care Proxy 04/18/2025 8:06 AM * Full Code (Latest Code Status on File) Date Activated Date Inactivated Comments 04/18/2025 6:21 AM 04/19/2025 6:08 PM * Full Code Date Activated Date Inactivated Comments 03/08/2025 6:32 AM 03/08/2025 2:16 PM Healthcare Agents on File Name Relationship Healthcare Agent Relationshi p Communication Sara Hand Daughter Health Care Agent Care Teams Automation Qtp Tester Relationship Specialty Start Date End Date Kassie Lauren [address] [place] [address] PCP - General 01/28/17 Krystal Freitas MD [address] [facility] [id number] Cardiology 03/06/25
--- OUTSIDE RECORDS SUMMARY | 2025-06-15 19:41 | XMS_ITS | Encounter Summary ---
Author Organization [employer] Address [address], [place] [address] Care Team Providers Care Marine Diver Name Role Phone Kassie Lauren MD Primary Care Provider [phone] Encounter Details Date Type Department Care Team ([facility] Contact Info) Description 11/26/2023 Orders Only [facility] CHC MED & PEDS [address] [place] [address] Kassie Lauren MD [address] [place] [address] Severe obesity (BMI >= 40) (CMS/HCC) (Primary [...] obesity (BMI >= 40) (CMS/HCC) ([facility])- Primary documented in this encounter Additional Health Concerns Assessment Noted Time PHQ-9 Depression Total Score: 0 11/03/19 23 2:16 PM EDT documented as of this encounter Care Teams Marine Diver Relationship Specialty Start Date End Date Kassie Lauren MD [address] [place] [id number] PCP - General Internal Medicine 07/12/18 documented as of this encounter
--- OUTSIDE RECORDS SUMMARY | 2025-06-15 19:41 | XMS_ITS | Encounter Summary ---
Author Organization [employer] Address [address] [place] [id number] Care Team Providers Care Business Test Analyst Name Role Phone Kassie Lauren MD Primary Care Provider [phone] Reason for Visit * Reason Comments Med Refill Encounter Details Date Type Department Care Team ([facility] st Contact Info) Description 01/11/2025 Refill [facility] CHC MED & PEDS [address] [place] [address] Kassie Lauren MD [address] [place] [address] Obesity (BMI 30-39.9) Social History Tobacco Use [...] documented as of this encounter Care Teams Business Test Analyst Relationship Specialty Start Date End Date Kassie Lauren MD [address] [place] [id number] PCP - General Internal Medicine 07/12/18 documented as of this encounter
--- OUTSIDE RECORDS SUMMARY | 2025-06-15 19:41 | XMS_ITS | Encounter Summary ---
Author Organization [employer] Address [address] [place] [address] Care Team Providers Care Knitter Hand Name Role Phone Kassie Lauren MD Primary Care Provider [phone] Reason for Visit * Reason Onset Date Comments Medication Question 03/09/2025 Encounter Details Date Type Department Care Team ([facility] st Contact Info) Description 03/09/2025 Telephone [facility] CHC MED & PEDS [address] [place] [address] Kassie Lauren MD [address] [place] [address] Medication Question Social History Tobacco Use Types [...] 90 days pt states Contact pt at [phone] documented in this encounter Plan of Treatment Not on file documented as of this encounter Visit Diagnoses Not on filedocumented in this encounter Additional Health Concerns Assessment Noted Time PHQ-9 Depression Total Score: 5 10/21/19 25 4:37 PM EDT documented as of this encounter Care Teams Knitter Hand Relationship Specialty Start Date End Date Kassie Lauren MD [address] [place] [id number] PCP - General Internal Medicine 07/12/18 documented as of this encounter
--- OUTSIDE RECORDS SUMMARY | 2025-06-15 19:41 | XMS_ITS | Encounter Summary ---
Author Organization [employer] Address [address] [place] [address] Care Team Providers Care Director Of Cardiology Service Line Name Role Phone Kassie Lauren MD Primary Care Provider [phone] Reason for Referral * Imaging (Routine) - Closed Specialty Diagnoses / Procedures Referred By Contliv t Referred To Contact Radiology Diagnoses Transaminitis Procedures US Abdomen Complete Kassie Lauren MD [address] [place] [address] Phone: tel: fax: [address] [address] Phone: tel: fax: Referral ID Status Reason Start Date Expiration Date Visits Re quested Visits Authorized [id number] Closed 10/23/2024 10/23/2025 1 1 Encounter Details Date Type Department Care Team (Late st Contact Info) Description 10/23/2024 Orders Only [facility] CHC MED & PEDS [address] [place], [place] [phone] Kassie Lauren MD [address] [place], [place] [phone] Transaminitis (Primary Dx) Social History Tobacco Use [...] AM EDT Narrative 12/06/2024 11:56 AM EDT [address] [address] Ultrasound Report Signed Patient: Sascha Hand MR#: [id number] 9 : 1970 Acct:[id number] Age/Sex: 54 / M ADM Date: 12/06/24 Loc: HO.US Attending Dr: Kassie Lauren MD Ordering Physician: Kassie Lauren MD Date of Service: 12/06/24 Procedure(s): US abdomen complete Accession Number(s): [id number] cc: Kassie Lauren MD CLINICAL HISTORY: Transaminitis [...] 12/06/24 1156 DD/ 1155 TD/TT: 12/06/24 1155 Lump Roller: Procedure Note Donotuseinterpreter, Image - 12/06/2024 [place] [address] Ultrasound Report Signed Patient: Sascha Hand [facility]#: [id number] 9 : 1970Acct:[id number] Age/Sex: 54 / MADM Date: 12/06/24 Loc: HO.US Attending Dr: Kassie Lauren MD Ordering Physician: Kassie Lauren MD Date of Service: 12/06/24 Procedure(s): US abdomen complete Accession Number(s): [id number] cc: Kassie Lauren MD CLINICAL HISTORY: Transaminitis [...] 12/06/24 1156 DD/ 1155 TD/TT: 12/06/24 1155 Lump Roller: us Kassie Lauren MD IMG US PROCEDURES Final Res ult * XR CERVICAL SPINE 3V (11/15/2024 8:04 PM EDT) Anatomical Region Laterality Modality Abdomen Radiographic Minoo ging 11/15/2024 8:04 PM EDT Narrative 11/15/2024 8:05 PM EDT [place] [address] XRay Report Signed Patient: Sascha Hand MR#: [id number] 9 : 1970 Acct:[id number] Age/Sex: 54 / M ADM Date: 11/15/24 Loc: HOANJEL Attending Dr: Kassie Lauren MD Ordering Physician: Kassie Lauren MD Date of Service: 11/15/24 Procedure(s): XR cervical spine 3V Accession Number(s): [id number] cc: Kassie Lauren MD CLINICAL HISTORY: NECK [...] in OV> 11/15/242004 DD/ 03 TD/TT: 11/15/242003 Lump Roller: Procedure Note Donotuseinterpreter, Image - 11/15/[address] [address] XRay Report Signed Patient: Sascha Hand MMR#: [id number] 9 : 1970Acct:[id number] Age/Sex: 54 / MADM Date: 11/15/24 Loc: HO.XRAY Attending Dr: Kassie Lauren MD Ordering Physician: Kassie Lauren MD Date of Service: 11/15/24 Procedure(s): XR cervical spine 3V Accession Number(s): [id number] cc: Kassie Lauren MD CLINICAL HISTORY: NECK [...] in OV> 11/15/242004 DD/ 03 TD/TT: 11/15/242003 Lump Roller: us Kassie Lauren MD IMG XR PROCEDURES Final Res ult * Immunoglobulins Panel, Serum (11/15/2024 10:17 AM EDT) IMMUNOGLOBULIN G 1064 600 - 1640 mg/dL [facility] IMMUNOGLOBULIN A 139 47 - 310 mg/dL [facility] Immunoglobulin M 202 50 - 300 mg/dL [facility] Comment:THIS TEST WAS PERFOR MED AT:[id number] [place] [phone] MEADOWS MD Blood Venous blood specimen / Unknown 11/15/2024 10:17 AM EDT 11/15/2024 10:17 AM EDT us Kassie Lauren MD LAB BLOOD ORDERABLES Final Result Performing Organization Address [facility] Co de Phone Number [facility] [address] [place] [phone] * Hepatitis A,B,C Profile (11/15/2024 10:17 AM EDT) Hepatitis A IgM Nonreactive Nonreactive [facility] Comment:IgM antibodies to LUA V not detected; does not exclude earlyacute or recovered HAV infection. ~Hepatitis B Surface Antibody NONREACTIVE Nonreactive [facility] Comment:Nonreactive: < 8.00 mIU/mL Hepatitis B Core Antibody Nonreactive Nonreactive [facility] Hepatitis C Antibody Nonreactive Nonreactive [facility] Comment:Antibodies to HCV no t detected; does not exclude early acuteHCV infection. Hepatitis B Surface Ag Negative Negative [facility] Blood Venous blood specimen / Unknown 11/15/2024 10:17 AM EDT 11/15/2024 10:17 AM EDT us Kassie Lauren MD LAB BLOOD ORDERABLES Final Result Performing Organization Address [facility] Co de Phone Number [facility] [address] [place] [phone] * (ABNORMAL) Prothrombin Time-INR (11/15/2024 10:17 AM EDT) Prothrombin Time 10.3(L) 10.9 - 12.4 SEC [facility] INTERNATIONAL NORM RATIO 0.9 0.9 - 1.1 [facility] Comment:INTERNATIONAL NORMAL IZED RATIO (INR) REFERENCE [...] BLOOD ORDERABLES Final Result Performing Organization Address [facility]/ZIP Co de Phone Number [facility] [address] [place] [phone] * Ferritin (11/15/2024 10:17 AM EDT) Ferritin 101 20 - 250 ng/mL [facility] Blood Venous blood specimen / Unknown 11/15/2024 10:17 AM EDT 11/15/2024 10:17 AM EDT us Kassie Lauren MD LAB BLOOD ORDERABLES Final Result Performing Organization Address City/[facility]/ZIP Co de Phone Number [facility] [address] [place] [phone] * Iron And Total Iron Binding Capacity (11/15/2024 10:17 AM EDT) Iron 83 45 - 160 mcg/dL [facility] Total Iron Binding Capacity 303 228 - 428 mcg/dL [facility] Percent Iron Saturation 27 15 - 50 % [facility] Unsaturated Iron Binding 220 ug/dL [facility] Blood Venous blood specimen / Unknown 11/15/2024 10:17 AM EDT 11/15/2024 10:17 AM EDT us Kassie Lauren MD LAB BLOOD ORDERABLES Final Result Performing Organization Address [facility] de Phone Number [facility] [address] [place] [phone] * Ceruloplasmin (11/15/2024 10:17 AM EDT) Ceruloplasmin 23 14 - 30 mg/dL [facility] Comment:THIS TEST WAS PERFOR MED AT:[id number] [place] [phone] MEADOWS MD Blood Venous blood specimen / Unknown 11/15/2024 10:17 AM EDT 11/15/2024 10:17 AM EDT us Kassie Lauren MD LAB BLOOD ORDERABLES Final Result Performing Organization Address [facility] de Phone Number [facility] [address] [place] [phone] documented in this encounter Visit Diagnoses Diagnosis Transaminitis- Primary Nonspecific elevation of levels of transaminase or lactic acid dehydrogenase (LDH) documented in this encounter Additional Health Concerns Assessment Noted Time PHQ-9 Depression Total Score: 5 10/21/19 25 4:37 PM EDT documented as of this encounter Care Teams Director Of Cardiology Service Line Relationship Specialty Start Date End Date Kassie Lauren MD [address] [place] [phone] PCP - General Internal Medicine 07/12/18 documented as of this encounter
--- OUTSIDE RECORDS SUMMARY | 2025-06-15 19:41 | XMS_ITS | Encounter Summary ---
Author Organization [employer] Address [address] [place] [address] Care Team Providers Care Warehouse Operations Associate Name Role Phone Kassie Lauren MD Primary Care Provider [phone] Reason for Visit * Reason Comments Med Refill Encounter Details Date Type Department Care Team ([facility] st Contact Info) Description 02/18/2025 Refill [facility] CHC MED & PEDS [address] [place] [address] Kassie Lauren MD [address] [place] [address] Primary insomnia Social History Tobacco Use Types [...] documented as of this encounter Care Teams Warehouse Operations Associate Relationship Specialty Start Date End Date Kassie Lauren MD [address] [place] [address] PCP - General Internal Medicine 07/12/18 documented as of this encounter
--- OUTSIDE RECORDS SUMMARY | 2025-06-15 19:41 | XMS_ITS | Encounter Summary ---
Author Organization [employer] Address [address] [facility] 7 [place] [address] Care Team Providers Care Communications Department Chair Name Role Phone Kassie Lauren MD Primary Care Provider [phone] Encounter Details Date Type Department Care Team ([facility] st Contact Info) Description 11/09/2023 Orders Only [facility] CHC MED & PEDS [address] [place] [address] Kassie Lauren MD 505 [place] [address] Pruritus scroti (Primary Dx); Benign essential hypertension; [...] t he electric, gas, oil or water [employer] threatened to shut off services in your [...] Priority Date/Time Associated Diagnosis Comments URINALYSIS, COMPLETE (INCLUDES MACRO AND MICRO) Routine 11/25/2023 8:38 AM EDT Microscopic hematuria BASIC METABOLIC PANEL Routine 11/25/2023 8:30 AM EDT Benign essential hypertension URINALYSIS, COMPLETE (INCLUDES MACRO AND MICRO) Routine 11/09/2023 2:39 PM EDT Pruritus scroti [...] Negative [facility] Specific [place] - Urine 1.010 1.005 - 1.025 [facility] Urine Protein Negative Neg-Trace mg/dL [facility] Urine Ketones Negative Negative mg/dL [facility] Nitrite Urine Negative Negative [facility] Leukocyte Esterase Urine Negative Negative [facility] RBC Urine 0-2 0 - 2 /HPF [facility] Urine WBC 0-5 0 - 5 /HPF [facility] Urine Squamous Epithelial Cell 0-2 0 - 2 /HPF [facility] Urine Bacteria None Seen None Seen [facility] Hyaline Casts, Urine 0-2 0 - 2 /LPF [facility] Urine (Urine, Random) 11/25/2023 8:38 AM EDT 11/25/2023 2:30 PM EDT us Kassie Lauren MD LAB URINE ORDERABLES Final Result Performing Organization Address [facility] Co de Phone Number [facility] [address] [place] [address] [phone] * (ABNORMAL) Basic Metabolic Panel (11/25/2023 [...] 1.210.Chronic Kidney Disease: Estimated GFR < 60 mL/min/1.64t9Ygxmth Kidney Disease: Estimated GFR < 15 mL/min/1.73m2 Glucose 90 60 - 115 mg/dL [facility] Calcium 9.4 8.4 - 10.2 mg/dL [facility] Blood Venous blood specimen / Unknown 11/25/2023 8:30 AM EDT 11/25/2023 2:39 PM EDT us Kassie Lauren MD LAB BLOOD ORDERABLES Final Result Performing Organization Address [facility]/ZIP Co de Phone Number [facility] [address] [place] [address] [phone] * (ABNORMAL) Urinalysis Complete (11/09/2023 2:39 PM EDT) Color Urine Dark Yellow [facility] Appearance Urine Cloudy [facility] PH 6.0 5.0 - 9.0 [facility] Glucose Urine UA Negative Negative mg/dL [facility] Urine Blood Large (3+)(A) Negative [facility] Specific [place] - Urine >=1.030(H) 1.005 - 1.025 [facility] Urine Protein Trace Neg-Trace mg/dL [facility] Urine Ketones Trace Negative mg/dL [facility] Nitrite Urine Negative Negative [facility] Leukocyte Esterase Urine Moderate (2+)(A) Negative [facility] RBC Urine 11-20(A) 0 - 2 /HPF [facility] Urine WBC 21-50 0 - 5 /HPF [facility] Urine Squamous Epithelial Cell 0-2 0 - 2 /HPF [facility] Urine Bacteria None Seen None Seen [facility] Hyaline Casts, Urine 0-2 0 - 2 /LPF [facility] Urine (Urine, Random) 11/09/2023 2:39 PM EDT 11/09/2023 5:35 PM EDT Kassie Lauren MD LAB URINE ORDERABLES Final Result [facility] [address] [place] [address] [phone] documented in this encounter Visit Diagnoses Diagnosis Pruritus scroti- Primary Pruritus of genital organs Benign essential hypertension Essential hypertension, benign Microscopic hematuria documented in this encounter Additional Health Concerns Assessment Noted Time PHQ-9 Depression Total Score: 0 11/03/19 23 2:16 PM EDT documented as of this encounter Care Teams Communications Department Chair Relationship Specialty Start Date End Date Kassie Lauren MD [address] [place] [address] PCP - General Internal Medicine 07/12/18 documented as of this encounter
--- OUTSIDE RECORDS SUMMARY | 2025-06-15 19:41 | XMS_ITS | Encounter Summary ---
Author Organization [employer] Address [address] [address] Care Team Providers Care Chip Applying Machine Tender Name Role Phone Kassie Lauren MD Primary Care Provider [phone] Reason for Visit * Reason Onset Date Comments Nurse Triage 11/09/2023 Encounter Details Date Type Department Care Team (Late st Contact Info) Description 11/09/2023 Telephone [facility] MEDICINE [address] [place] [address] Kassie Lauren MD [address] [place], [place] [phone] Nurse Triage Social History Tobacco Use Types [...] t he electric, gas, oil or water [employer] threatened to shut off services in your [...] documented as of this encounter Care Teams Chip Applying Machine Tender Relationship Specialty Start Date End Date Kassie Lauren MD [address] [place] [address] PCP - General Internal Medicine 07/12/18 documented as of this encounter
--- OUTSIDE RECORDS SUMMARY | 2025-06-15 19:41 | XMS_ITS | Encounter Summary ---
Author Organization [employer] Address [address] [place] [address] Care Team Providers Care Head Cleaning Porter Name Role Phone Kassie Lauren MD Primary Care Provider [phone] Reason for Referral * Consultation (Urgent) - Closed Specialty Diagnoses / Procedures Referred By Contac t Referred To Contact Vascular Surgery Diagnoses Abdominal aortic aneurysm (AAA) without rupture, unspecified part (CMS/HCC) Kassie Lauren MD [address] [place] [address] Phone: tel: fax: [facility] [address] [place] [address] Phone: tel: fax: Referral ID Status Reason Start Date Expiration Date V isits Requested Visits Authorized [id number] Closed Specialty Services Required 12/06/2024 12/06/2025 1 1 Encounter Details Date Type Department Care Team (Late st Contact Info) Description 12/06/2024 Orders Only [facility] CHC MED & PEDS [address] [place], [place] [phone] Kassie Lauren MD [address] [place] [address] Abdominal aortic aneurysm (AAA) without rupture, unspecified [...] aortic aneurysm (AAA) without rupture, unspecified part ([facility]) Expected: 12/06/2024 (Approximate), Expires: 12/06/2025 documented as of this encounter Procedures Procedure Name Priority Date/Time Associated Diagnosis Comments TESTOSTERONE, FREE, BIOAVAILABLE AND TOTAL, MALES (ADULT), IA Routine 12/06/2024 8:45 AM EDT Abdominal aortic aneurysm (AAA) without rupture, unspecified part ([facility]) LH Routine 12/06/2024 8:45 AM EDT Abdominal aortic aneurysm (AAA) without rupture, unspecified part (CMS/HCC) documented in this encounter Results * Testosterone, Free (Dialysis) And Total, MS (12/06/2024 8:45 AM EDT) Testosterone, Total 470 250 - 1100 ng/dL [facility] Comment:For additional infor teresebib, please refer tohttp://education.[employer]/faq/Ns[email or web address](This link is being provided for informational/educational purposes only.)This test was developed and its analytical performancecharacteristics have been determined by [employer] [place], [place]. It hasnot been cleared or approved by the U.S. Food and DrugAdministration. This assay has been validated pursuantto the CLIA regulations and is used for clinicalpurposes. Testosterone, Free 62.5 35.0 - 155.0 pg/mL [facility] Comment:This test was develo ped and its analytical performancecharacteristics have been determined by [employer] [place], [place]. It hasnot been cleared or approved by the U.S. Food and DrugAdministration. This assay has been validated pursuantto the CLIA regulations and is used for clinicalpurposes.THIS TEST WAS PERFORMED AT:[employer] [id number] [place] [id number] GIRARD MD,PHD 12/06/2024 8:45 AM EDT 12/06/2024 8:45 AM EDT us Generic External Data Provider LAB BLOOD ORDERAB LES Final Result [facility] [address] [place] [phone] * LH (12/06/2024 8:45 AM EDT) Lutenizing Hormone 8.8 1.5 - 9.3 mIU/mL [facility] Comment:THIS TEST WAS PERFOR MED AT:[employer] [place] [phone] MEADOWS MD 12/06/2024 8:45 AM EDT 12/06/2024 8:45 AM EDT us Generic External Data Provider LAB BLOOD ORDERAB LES Final Result [facility] [address] [place] [address] [phone] documented in this encounter Visit Diagnoses Diagnosis Abdominal aortic aneurysm (AAA) without rupture, unspecified part (CMS/HCC)- Primary documented in this encounter Additional Health Concerns Assessment Noted Time PHQ-9 Depression Total Score: 5 10/21/19 25 4:37 PM EDT documented as of this encounter Care Teams Head Cleaning Porter Relationship Specialty Start Date End Date Kassie Lauren MD [address] [place] [phone] PCP - General Internal Medicine 07/12/18 documented as of this encounter
--- OUTSIDE RECORDS SUMMARY | 2025-06-15 19:41 | XMS_ITS | Encounter Summary ---
Author Organization [employer] Address [address] [place] [address] Care Team Providers Care Renal Social Worker Name Role Phone Kassie Lauren MD Primary Care Provider [phone] Reason for Visit * Reason Comments Med Refill Encounter Details Date Type Department Care Team ([facility] st Contact Info) Description 02/07/2025 Refill [facility] CHC MED & PEDS [address] [place] [address] Kassie Lauren MD [address] [place] [address] Benign essential hypertension Social History Tobacco Use [...] documented as of this encounter Care Teams Renal Social Worker Relationship Specialty Start Date End Date Kassie Lauren MD [address] [place] [phone] PCP - General Internal Medicine 07/12/18 documented as of this encounter
--- OUTSIDE RECORDS SUMMARY | 2025-06-15 19:41 | XMS_ITS | Encounter Summary ---
Author Organization [employer] Address [address] [place] [address] [address] [place] [address] Care Team Providers Care Theatrical Performer Name Role Phone Kassie Lauren MD Primary Care Provider [phone] Reason for Visit * Reason Comments Med Refill Encounter Details Date Type Department Care Team ([facility] st Contact Info) Description 02/05/2025 Refill [facility] CHC MED & PEDS [address] [place] [address] Leidy Wilder MD [address] [place] [address] Benign essential hypertension Social History Tobacco Use [...] documented as of this encounter Care Teams Theatrical Performer Relationship Specialty Start Date End Date Kassie Lauren MD [address] [place] [address] PCP - General Internal Medicine 07/12/18 documented as of this encounter
--- OUTSIDE RECORDS SUMMARY | 2025-06-15 19:41 | XMS_ITS | Encounter Summary ---
Author Organization [employer] Address [address] [facility] 7 [place] [address] Care Team Providers Care Technologist Infectious Disease Name Role Phone Kassie Lauren MD Primary Care Provider [phone] Encounter Details Date Type Department Care Team ([facility] Contact Info) Description 11/02/2023 Telephone [facility] MED & PEDS [address] [place] [address] Kassie Lauren MD [address] [place] [address] Social History Tobacco Use Types Packs/Day Years [...] documented as of this encounter Care Teams Technologist Infectious Disease Relationship Specialty Start Date End Date Kassie Lauren MD [address] [place] [address] PCP - General Internal Medicine 07/12/18 documented as of this encounter
--- OUTSIDE RECORDS SUMMARY | 2025-06-15 19:41 | XMS_ITS | Encounter Summary ---
Author Organization [employer] Address 75 [facility] [address] [place] [address] Care Team Providers Care Gold Cutter Name Role Phone Kassie Lauren MD Primary Care Provider [phone] Encounter Details Date Type Department Care Team ([facility] Contact Info) Description 04/20/2025 Orders Only [facility] [address] [place], [place] [phone] Provider, MD Cheryl Social History Tobacco Use [...] Procedure Name Priority Date/Time Associated Diagnosis Comments XR CHEST 1 VIEW Routine 04/18/2025 2:33 PM EDT documented in this encounter Results * XR Chest 1 View (04/18/2025 2:33 PM EDT) Anatomical Region Laterality Modality Chest Radiographic Minoo ging us Historical Provider MD JONES XR PROCEDURES Final R esult documented in this encounter Visit Diagnoses Not on filedocumented in this encounter Additional Health Concerns Assessment Noted Time PHQ-9 Depression Total Score: 5 10/21/19 25 4:37 PM EDT documented as of this encounter Care Teams Gold Cutter Relationship Specialty Start Date End Date Kassie Lauren MD [address] [place] [phone] PCP - General Internal Medicine 07/12/18 documented as of this encounter
--- OUTSIDE RECORDS SUMMARY | 2025-06-15 19:42 | XMS_ITS | Encounter Summary ---
Author Organization [employer] Address [address] [facility] [address] [address] Care Team Providers Care Impersonator Character Name Role Phone Kassie Lauren MD Primary Care Provider [phone] Reason for Visit * Reason Comments Med Refill Encounter Details Date Type Department Care Team ([facility] st Contact Info) Description 06/27/2024 Refill [facility] CHC MED & PEDS [address] [place] [address] Kassie Lauren MD 505 [place] [address] Benign essential hypertension Social History Tobacco Use [...] documented as of this encounter Care Teams Impersonator Character Relationship Specialty Start Date End Date Kassie Lauren MD [address] [place] [address] PCP - General Internal Medicine 07/12/18 documented as of this encounter
--- OUTSIDE RECORDS SUMMARY | 2025-06-15 19:42 | XMS_ITS | Clinical Summary ---
Author Organization [employer] Address [address] [facility] 7 [place] [address] Care Team Providers Care Doctor Podiatric Medicine Name Role Phone Kassie Lauren MD Primary Care Provider [phone] Allergies Active Allergy Reactions Criticality Noted Date [...] 28.35 g 08/27/19 24 Active gabapentin (Neurontin) 800 MG tabletIndications: Tingling in extremities Take 1 tablet (800 mg) by mouth at bedtime. 30 tablet 11 10/21/19 25 026 Active triamcinolone (Kenalog) 0.1 % creamIndications:S tasis dermatitis Apply topically if needed in the morning and at bedtime for rash. 30 g 2 01/02/20 25 Active Wegovy 1.7 MG/0.75ML solution auto-injectorIndic ations:Obesity (BMI 30-39.9) INJECT 1.7 MG SUBCUTANEOUS EVERY 7 DAYS 3 mL 1 03/13/20 25 Active hydrOXYzine pamoate (Vistaril) 50 MG capsuleIndications :Pruritus scroti,Stasis dermatitis 1 to 2 capsules at bedtime 180 capsule 3 03/16/20 25 Active Semaglutide-Weight Management (Wegovy) 2.4 MG/0.75ML solution auto-injectorIndic ations:Class 2 severe obesity due to excess calories with serious comorbidity and body mass index (BMI) of 38.0 to 38.9 in adult Inject 0.75 mL (2.4 mg) under the skin 1 (one) time per week. 3 mL 3 04/05/20 25 Active losartan (Cozaar) 25 MG tabletIndications: Benign essential hypertension Take 1 tablet (25 mg) by mouth Once per day. 30 tablet 11 04/05/20 25 026 Active hydrOXYzine pamoate (Vistaril) 50 MG capsuleIndications :Primary insomnia,Pruritus scroti Take 2 capsules (100 mg) by mouth if needed at bedtime for itching. 60 capsule 3 04/05/20 25 Active atorvastatin (Lipitor) 80 MG tabletIndications: Mixed hyperlipidemia TAKE 1 TABLET(80 MG) BY MOUTH DAILY 90 tablet 3 05/03/20 25 Active Active Problems Problem Noted Date Diagnosed Date Chronic stable angina 11/02/2022 Benign essential hypertension 01/19/2013 Hyperlipidemia 01/19/2013 Encounters Date Type Department Care Team Description 06/11/2025 Orders Only [facility] [address] [place] [address] Chreyl Petersen MD 05/03/2025 Refill [facility] [address] [place] [address] Kassie Lauren MD Mixed hyperlipidemia 04/20/2025 Orders Only [facility] [address] [place] [address] ProviderCheryl MD 04/16/2025 Results Follow-Up [facility] [address] [facility] [place] [phone] Kassie Lauren MD US Head Neck Soft Tissue 04/16/2025 Orders Only [facility] External Provider, [facility] 04/05/2025 4:00 PM EDT Office Visit [facility] [address] [facility] [place] [phone] Kassie Lauren MD Class 2 severe obesity due to excess calories with serious comorbidity and body mass index (BMI) of 38.0 to 38.9 in adult (CMS/[facility]) (Primary Dx); Benign essential hypertension; Primary insomnia; Pruritus scroti 04/05/2025 Travel 04/04/2025 Telephone [facility] [address] [facility] [place] [phone] Kassie Lauren MD Chart Prep 03/29/2025 Travel 03/16/2025 Orders Only [facility] [address] [place] [address] Kassie Lauren MD Pruritus scroti (Primary Dx); Stasis dermatitis from Last 3 Months Immunizations Immunization Administration [...] 1969 FIT 1969 FOBT 1969 Sigmoidoscopy 1969 RSV Patients and Patients Aged 60 years or older (1 - Risk 50-74 years 1-dose series) 2019 Zoster Vaccines (1 of 2) 2019 COVID-19 Vaccine (2024-2 6 season) 2025 Disability Screening 08/17/2025 08/17/2024 Alcohol/Substance [...] Colonoscopy 05/10/2033 05/10/2023 Colorectal Cancer Screening 05/10/2033 HIV Screening Completed 01/06/2021 Hepatitis C Screening [...] ANGIOGRAM ABDOMEN PELVIS W CONTRAST Routine 05/21/2025 XR CHEST 1 VIEW Routine 04/18/2025 2:33 PM EDT US HEAD NECK SOFT TISSUE Routine 04/16/2025 12:51 PM EDT LDCT LUNG SCREENING Routine 04/16/2025 7 :43 AM EDT HEPATITIS PANEL, GENERAL Routine 11/15/2024 10:17 AM EDT Transaminitis COLONOSCOPY Routine 05/10/2023 HIV 1/2 ANTIGEN/ANTIBODY, FOURTH GENERATION W/RFL Routine 01/06/2021 9:33 AM EDT LIPID PANEL, STANDARD Routine 01/06/2021 9:33 AM EDT from Last 3 Months or Most Recently Relevant to Health Maintenance Results * CT ANGIOGRAM ABDOMEN PELVIS W CONTRAST (05/21/2025) Anatomical Region Laterality Modality Body, Pelvis, Abdomen Computed T omography us Historical Provider IMG CT PROCEDURES Final R esult * XR Chest 1 View (04/18/2025 2:33 PM EDT) Anatomical Region Laterality Modality Chest Radiographic Minoo ging us Historical Provider IMG XR PROCEDURES Final R esult * US Head Neck Soft Tissue (04/16/2025 12:51 PM EDT) Anatomical Region Laterality Modality Head, Neck Ultrasound 04/16/2025 12:5 1 PM EDT Narrative 04/16/2025 2:07 PM EDT [place] [address] Ultrasound Report Signed Patient: Sascha Hand MR#: [id number] 9 : 1970 Acct:[id number] Age/Sex: 55 / M ADM Date: 04/16/25 Loc: HO.CT Attending Dr: Ailin Hernandez PA-C Ordering Physician: Kassie Lauren MD Date of Service: 04/16/25 Procedure(s): US soft tiss head and/or neck Accession Number(s): [id number] cc: Kassie Lauren MD Reason for Exam: NECK MASS, RT SIDED EXAMINATION: US SOFT TISSUE HEAD AND/OR NECK CLINICAL INFORMATION: Palpable painless mass right neck submandibular region. Patient states the lump has decreased in size. COMPARISON: None available. TECHNIQUE: Linear transducer beltrán-scale and color Doppler examination with attention to the right submandibular region in the area as indicated by the patient. FINDINGS: There is no mass or abnormal fluid collection identified. The right submandibular gland appears normal. There is a normal level II, 0.6 cm short axis lymph node, with prominent fatty hilum, normal cortex, and reniform shape, correlating with the area of palpable concern. This is consistent with a benign lymph node. No additional abnormalities. US/US soft tiss head and/or neck IMPRESSION: 1. No abnormal mass, fluid collection, or suspicious abnormality. The palpable focus of concern in the right submandibular region appears to be related to a normal-appearing subcentimeter lymph node. Electronically signed by: Khang Orantes MD 04/16/2025 02:04 PM EDT RP Dictated By: Khang Orantes MD Signed By: <Electronically signed by Khang Orantes MD in OV> 04/16/25 1404 DD/ 1251 TD/TT: 04/16/25 1254 Flavorings Compounder: Procedure Note Donotuseinterpreter, Image - 04/16/2025 [place] [address] Ultrasound Report Signed Patient: Sascha Hand [facility]#: [id number] 9 : 1970Acct:[id number] Age/Sex: 55 / MADM Date: 04/16/25 Loc: HO.CT Attending Dr: Ailin Hernandez PA-C Ordering Physician: Kassie Lauren MD Date of Service: 04/16/25 Procedure(s): US soft tiss head and/or neck Accession Number(s): [id number] cc: Kassie Lauren MD Reason for Exam: NECK MASS, RT SIDED EXAMINATION: US SOFT TISSUE HEAD AND/OR NECK CLINICAL INFORMATION: Palpable painless mass right neck submandibular region. Patient states the lump has decreased in size. COMPARISON: None available. TECHNIQUE: Linear transducer beltrán-scale and color Doppler examination with attention to the right submandibular region in the area as indicated by the patient. FINDINGS: There is no mass or abnormal fluid collection identified. The right submandibular gland appears normal. There is a normal level II, 0.6 cm short axis lymph node, with prominent fatty hilum, normal cortex, and reniform shape, correlating with the area of palpable concern. This is consistent with a benign lymph node. No additional abnormalities. US/US soft tiss head and/or neck IMPRESSION: 1. No abnormal mass, fluid collection, or suspicious abnormality. The palpable focus of concern in the right submandibular region appears to be related to a normal-appearing subcentimeter lymph node. Electronically signed by: Khang Orantes MD 04/16/2025 02:04 PM EDT Dictated By: Khang Orantes MD Signed By: <Electronically signed by Khang Orantes MD in OV> 04/16/25 1404 DD/ 1251 TD/TT: 04/16/25 1254 Flavorings Compounder: us Kassie Lauren MD IMG US PROCEDURES Final Res ult * CT Lung Screening Low dose (04/16/2025 7:43 AM EDT) Anatomical Region Laterality Modality Lung Computed Tomogra phy 04/16/2025 7:43 AM EDT Narrative 04/16/2025 10:13 AM EDT [place] [address] CT Scan Report Signed Patient: Sascha Hand MR#: [id number] 9 : 1970 Acct:[id number] Age/Sex: 55 / M ADM Date: 04/16/25 Loc: HO.CT Attending Dr: Ailin Hernandez PA-C Ordering Physician: Ailin Hernandez PA-C Date of Service: 04/16/25 Procedure(s): CT lung screening Accession Number(s): [id number] cc: Kassie Lauren MD; Ailin Hernandez PA-C Report Number: [id number]: Total DLP = 97.00 mGy-cm Reason for Exam: Z87.891 - Personal history of nicotine dependence EXAMINATION: CT LOW-DOSE SCREENING CHEST WITHOUT CONTRAST CLINICAL INFORMATION: COMPARISON: None available. TECHNIQUE: Multidetector volumetric CT imaging of the chest is performed on a Siemens SOMATOM Definition scanner without contrast using low dose technique. Additional 2D coronal and sagittal reformatted images and axial 3D maximum intensity projection (MIP) images are generated on the CT workstation. This CT examination was performed using dose optimization techniques as appropriate, variously including the following: *Automated exposure control *Adjustment of mA and/or kV according to patient size (this includes techniques or standardized protocols for targeted exams where dose is matched to indication/reason for exam; i.e. extremities or head) *Use of iterative reconstruction technique CTDIvol: 2.2 mGy. FINDINGS: PULMONARY NODULES: Stable bilateral pulmonary nodules. Largest pulmonary nodules measure 6 mm in the right middle lobe axial image 103 and 4 mm in the peripheral subpleural right lower lobe axial image 122 series 5. No new pulmonary nodules. Central airways are clear. LUNGS: Lungs bilaterally symmetrically expanded. No effusion or pneumothorax. Central airways patent. MEDIASTINUM: No mediastinal, hilar or axillary adenopathy or free fluid collection. CORONARY ARTERY CALCIFICATION: Moderate THYROID GLAND: Unremarkable to the extent seen. CARDIOVASCULAR STRUCTURES: Normal heart size. Upper normal size ascending thoracic aorta measuring 4 cm. No pericardial effusion. CHEST WALL/AXILLA: Unremarkable. UPPER ABDOMEN: Included portions of the solid organs in the upper abdomen unremarkable on noncontrast imaging. OSSEOUS STRUCTURES: Degenerative changes of the spine. CT/CT lung screening IMPRESSION: Stable bilateral pulmonary nodules largest measuring 6 mm in the right middle lobe. ASSESSMENT: 1. Lung-RADS Category 2: Benign appearance or behavior of nodules. 2. Lung-RADS Category S: Negative. There are no clinically significant or potentially clinically significant findings not related to the lungs requiring urgent additional evaluation. RECOMMENDATION: Annual low-dose chest CT follow-up recommended. Electronically signed by: Irene Morales MD 04/16/2025 10:10 AM EDT Dictated By: Irene Morales MD Signed By: <Electronically signed by Irene Morales MD in OV> 04/16/25 1010 DD/ 0743 TD/TT: 04/16/25 0916 Flavorings Compounder: JAVIER Procedure Note Donotuseinterpreter, Image - 04/16/[address] [address] [address] Scan Report Signed Patient: Sascha Hand [facility]#: [id number] 9 : 1970Acct:[id number] Age/Sex: 55 / MADM Date: 04/16/25 Loc: HO.CT Attending Dr: Ailin Hernandez PA-C Ordering Physician: Ailin Hernandez PA-C Date of Service: 04/16/25 Procedure(s): CT lung screening Accession Number(s): [id number] cc: Kassie Lauren MD; Ailin Hernandez PA-C Report Number: [id number]: Total DLP = 97.00 mGy-cm Reason for Exam: Z87.891 - Personal history of nicotine dependence EXAMINATION: CT LOW-DOSE SCREENING CHEST WITHOUT CONTRAST CLINICAL INFORMATION: COMPARISON: None available. TECHNIQUE: Multidetector volumetric CT imaging of the chest is performed on a Siemens SOMATOM Definition scanner without contrast using low dose technique. Additional 2D coronal and sagittal reformatted images and axial 3D maximum intensity projection (MIP) images are generated on the CT workstation. This CT examination was performed using dose optimization techniques as appropriate, variously including the following: *Automated exposure control *Adjustment of mA and/or kV according to patient size (this includes techniques or standardized protocols for targeted exams where dose is matched to indication/reason for exam; i.e. extremities or head) *Use of iterative reconstruction technique CTDIvol: 2.2 mGy. FINDINGS: PULMONARY NODULES: Stable bilateral pulmonary nodules. Largest pulmonary nodules measure 6 mm in the right middle lobe axial image 103 and 4 mm in the peripheral subpleural right lower lobe axial image 122 series 5. No new pulmonary nodules. Central airways are clear. LUNGS: Lungs bilaterally symmetrically expanded. No effusion or pneumothorax. Central airways patent. MEDIASTINUM: No mediastinal, hilar or axillary adenopathy or free fluid collection. CORONARY ARTERY CALCIFICATION: Moderate THYROID GLAND: Unremarkable to the extent seen. CARDIOVASCULAR STRUCTURES: Normal heart size. Upper normal size ascending thoracic aorta measuring 4 cm. No pericardial effusion. CHEST WALL/AXILLA: Unremarkable. UPPER ABDOMEN: Included portions of the solid organs in the upper abdomen unremarkable on noncontrast imaging. OSSEOUS STRUCTURES: Degenerative changes of the spine. CT/CT lung screening IMPRESSION: Stable bilateral pulmonary nodules largest measuring 6 mm in the right middle lobe. ASSESSMENT: 1. Lung-RADS Category 2: Benign appearance or behavior of nodules. 2. Lung-RADS Category S: Negative. There are no clinically significant or potentially clinically significant findings not related to the lungs requiring urgent additional evaluation. RECOMMENDATION: Annual low-dose chest CT follow-up recommended. Electronically signed by: Irene Morales MD 04/16/2025 10:10 AM EDT RP Dictated By: Irene Morales MD Signed By: <Electronically signed by Irene Morales MD in OV> 04/16/25 1010 DD/ 0743 TD/TT: 04/16/25 0916 Flavorings Compounder: JAVIER [facility] External Provider IMG CT PROCEDURES Final Result * Hepatitis A,B,C Profile (11/15/2024 10:17 AM EDT) Hepatitis A IgM Nonreactive Nonreactive [facility] Comment:IgM antibodies to LUA V not detected; does not exclude earlyacute or recovered HAV infection. ~Hepatitis B Surface Antibody NONREACTIVE Nonreactive [facility] Comment:Nonreactive: < 8.00 mIU/mL Hepatitis B Core Antibody Nonreactive Nonreactive [facility] Hepatitis C Antibody Nonreactive Nonreactive [facility] Comment:Antibodies to HCV no t detected; does not exclude early acuteHCV infection. Hepatitis B Surface Ag Negative Negative [facility] Blood Venous blood specimen / Unknown 11/15/2024 10:17 AM EDT 11/15/2024 10:17 AM EDT Kassie Lauren MD LAB BLOOD ORDERABLES Final Result [facility] [address] [place] [address] [phone] * (ABNORMAL) Colonoscopy (05/10/2023) Anatomical Region Laterality Modality Endoscopy Narrative 05/10/2023 Hyperplastic polyp of the descending colon us Kassie Lauren MD ENDOSCOPY PROCEDURE ORDERAB LES Final Result * HIV 1/2 ANTIGEN/ANTIBODY,FOURTH GENERATION W/RFL (01/06/2021 9:33 AM EDT) HIV-1/2 ANTIGEN AND ANTIBODIES, 4TH GENERATION W/ REFLEX NON-REACT AMADOR NON-REACT AMADOR [facility] Comment: HIV-1 antigen and HIV-1/HIV-2 [...] purpose. For additional information please refer to http://education.[employer]/faq/IMI070 (This link is being provided for informational/ educational purposes only.) The performance of this assay has not been clinically validated in patients less than 2 years old. 01/06/2021 9:33 AM EDT us Bam Schmidt MD LAB BLOOD ORDERABL ES Final Result [facility] * LIPID PANEL, STANDARD (01/06/2021 9:33 AM EDT) Chol/HDLC Ratio 3.4 <5.0 (calc) [facility] [...] factors. LDL-C is now calculated using the Jose-Bailey calculation, which is a validated novel method providing better accuracy than the Friedewald equation in the estimation of LDL-C. Jose SS et al. MICHAEL. 2013;310(19): 5475-5654 (http://[employer]/faq/RVG079) Non-HDL Cholesterol 102 <130 mg/dL (calc) [facility] Comment: For patients with diabetes plus 1 major ASCVD risk factor, treating to a non-HDL-C goal of <100 mg/dL (LDL-C of <70 mg/dL) is considered a therapeutic option. Triglycerides 94 <150 mg/dL [facility] 01/06/2021 9:33 AM EDT Bam Schmidt MD LAB BLOOD ORDERABL ES Final Result [facility] [address] from Last 3 Months or Most Recently Relevant to Health Maintenance Insurance [facility] Care Teams Doctor Podiatric Medicine Relationship Specialty Start Date End Date Kassie Lauren MD [address] [place] [address] PCP - General Internal Medicine 07/12/18
--- OUTSIDE RECORDS SUMMARY | 2025-06-15 19:42 | XMS_ITS | Encounter Summary ---
Author Organization [facility] Address [address] [place] [address] Care Team Providers Care Vamp Cut Out Worker Name Role Phone Leonidas Kassie Villa Primary Care Provider [phone] Encounter Details Date Type Department Care Team (Late st Contact Info) Description 03/06/2025 Orders Only [facility] Interventional Radiology [address] [place] [phone] Laurent Benítez MD [address] [facility] [place] [address] Social History Tobacco Use Types Packs/Day Years Used Date Smoking Tobacco: Every Day Comments:: Sex and Gender Information Value Date Recorded Sex Assigned at Male 04/18/2025 5:56 AM EDT Legal Sex Male 6:51 PM EDT Gender Identity Male 03/01/2025 9:23 AM EDT Sexual Orientation Straight 03/01/2025 9: 23 AM EDT documented as of this encounter Functional Status documented as of this encounter Plan of Treatment Upcoming Encounters Date Type Department Care Team (Late st Contact Info) Description 11/26/2025 8:45 AM EDT Appointment [facility] CT [address] [place] [address] [phone] 11/26/2025 9:20 AM EDT Follow-Up [facility] Building Vascular Surgery [address] [place] [phone] Sales Representative [employer] Service: Stewart Rubin MD [address] [place] [phone] documented as of this encounter Visit Diagnoses Not on filedocumented in this encounter Care Teams Vamp Cut Out Worker Relationship Specialty Start Date End Date Kassie Lauren [address] [place] [address] PCP - General 01/28/17 Krystal Freitas MD [address] [facility] [address] Cardiology 03/06/25 documented as of this encounter
--- OUTSIDE RECORDS SUMMARY | 2025-06-15 19:42 | XMS_ITS | Encounter Summary ---
Author Organization [employer] Address [address] [place] [address] 7 [place] [address] Care Team Providers Care Public Health Dietitian Name Role Phone Kassie Lauren MD Primary Care Provider [phone] Reason for Visit * Reason Comments Med Refill Encounter Details Date Type Department Care Team ([facility] st Contact Info) Description 02/04/2024 Refill [facility]EDS [address] [place] [address] Leidy Wilder MD [address] [place] [address] Benign essential hypertension Social History Tobacco Use [...] t he electric, gas, oil or water [employer] threatened to shut off services in your [...] documented as of this encounter Care Teams Public Health Dietitian Relationship Specialty Start Date End Date Kassie Lauren MD [address] [place] [address] PCP - General Internal Medicine 07/12/18 documented as of this encounter
--- OUTSIDE RECORDS SUMMARY | 2025-06-15 19:42 | XMS_ITS | Encounter Summary ---
Author Organization [employer] Address [address] [facility] [address] [place] [address] Care Team Providers Care Marine Cargo Inspector Name Role Phone Kassie Lauren MD Primary Care Provider [phone]- [phone] Encounter Details Date Type Department Care Team ([facility] st Contact Info) Description 03/16/2025 Orders Only [facility] MED & PEDS [address] [place] [address] Kassie Lauren MD [address] [place] [address] Pruritus scroti (Primary Dx); Stasis dermatitis Social [...] as of this encounter Care Teams Marine Cargo Inspector Relationship Specialty Start Date End Date Kassie Lauren MD [address] [place] [phone] PCP - General Internal Medicine 07/12/18 documented as of this encounter
--- OUTSIDE RECORDS SUMMARY | 2025-06-15 19:42 | XMS_ITS | Encounter Summary ---
Author Organization [employer] Address [address] [facility] [address], [place] [address] Care Team Providers Care Tumbler Machine Operator Name Role Phone Kassie Lauren MD Primary Care Provider [phone] Encounter Details Date Type Department Care Team ([facility] Contact Info) Description 06/30/2024 Orders Only [facility] MED & PEDS [address] [place] [address] Kassie Lauren MD [address] [place] [address] Social History Tobacco Use Types Packs/Day Years [...] documented as of this encounter Care Teams Tumbler Machine Operator Relationship Specialty Start Date End Date Kassie Lauren MD [address] [place] [phone] PCP - General Internal Medicine 07/12/18 documented as of this encounter
--- OUTSIDE RECORDS SUMMARY | 2025-06-15 19:42 | XMS_ITS | Encounter Summary ---
Author Organization [employer] Address [address] [address] Care Team Providers Care Bandage Winding Machine Operator Name Role Phone Kassie Lauren MD Primary Care Provider [phone] Reason for Visit * Reason Onset Date Comments Appointment Request 07/09/2023 Encounter Details Date Type Department Care Team ([facility] st Contact Info) Description 07/09/2023 Telephone [facility] MEDICINE [address] [place] [address] Kassie Lauren MD [address] [place], [place] [phone] Appointment Request Social History Tobacco Use Types [...] t he electric, gas, oil or water [employer] threatened to shut off services in your [...] to appointment request. Please contact pt at [phone] * Telephone Encounter - Carlos Pradhan - 07/09/2023 11:22 AM EST Tc from pt requesting a Tele visit with pcp regarding Colonoscopy and wants to check up with his provider. Please contact pt at [phone]. documented in this encounter Plan of Treatment Not on file documented as of this encounter Visit Diagnoses Not on filedocumented in this encounter Additional Health Concerns Assessment Noted Time PHQ-9 Depression Total Score: 0 11/03/19 23 2:16 PM EDT documented as of this encounter Care Teams Bandage Winding Machine Operator Relationship Specialty Start Date End Date Kassie Lauren MD [address] [place] [phone] PCP - General Internal Medicine 07/12/18 documented as of this encounter
--- OUTSIDE RECORDS SUMMARY | 2025-06-15 19:42 | XMS_ITS | Encounter Summary ---
Author Organization [employer] Address [address] [place] [id number] Care Team Providers Care Side Door Worker Name Role Phone Kassie Lauren MD Primary Care Provider [phone] Reason for Visit * Reason Comments Med Refill Encounter Details Date Type Department Care Team ([facility] st Contact Info) Description 03/10/2025 Refill [facility] MED & PEDS [address] [place] [address] Kassie Lauren MD [address] [place] [address] Obesity (BMI 30-39.9) Social History Tobacco Use [...] documented as of this encounter Care Teams Side Door Worker Relationship Specialty Start Date End Date Kassie Lauren MD [address] [place] [id number] PCP - General Internal Medicine 07/12/18 documented as of this encounter
--- OUTSIDE RECORDS SUMMARY | 2025-06-15 19:42 | XMS_ITS | Encounter Summary ---
Author Organization [employer] Address [address] [facility] [address] [address] Care Team Providers Care Corporate Receptionist Name Role Phone Kassie Lauren MD Primary Care Provider [phone] Reason for Visit * Reason Comments Med Refill Encounter Details Date Type Department Care Team ([facility] st Contact Info) Description 06/27/2024 Refill [facility] MED & PEDS [address] [place] [address] Kassie Lauren MD [address] [place] [address] Benign essential hypertension Social History Tobacco Use [...] documented as of this encounter Care Teams Corporate Receptionist Relationship Specialty Start Date End Date Kassie Lauren MD [address] [place] [address] PCP - General Internal Medicine 07/12/18 documented as of this encounter
--- OUTSIDE RECORDS SUMMARY | 2025-06-15 19:42 | XMS_ITS | Encounter Summary ---
Author Organization [employer] Address [address] [address] Care Team Providers Care Finnish Rubber Name Role Phone Kassie Lauren MD Primary Care Provider [phone] Reason for Visit * Reason Comments Med Refill Encounter Details Date Type Department Care Team ([facility] st Contact Info) Description 04/21/2023 Refill [facility] MEDICINE [address] [place] [address] Kassie Lauren MD [address] [place], [place] [id number] Primary osteoarthritis involving multiple joints Social History [...] t he electric, gas, oil or water [employer] threatened to shut off services in your [...] documented as of this encounter Care Teams Finnish Rubber Relationship Specialty Start Date End Date Kassie Lauren MD [address] [place] [id number] PCP - General Internal Medicine 07/12/18 documented as of this encounter
--- OUTSIDE RECORDS SUMMARY | 2025-06-15 19:42 | XMS_ITS | Encounter Summary ---
Author Organization [employer] Address [address] [place] [address] Care Team Providers Care Die Repairer Stamping Name Role Phone Kassie Lauren MD Primary Care Provider [phone] Reason for Visit * Reason Comments Med Refill Encounter Details Date Type Department Care Team ([facility] st Contact Info) Description 10/16/2024 Refill [facility] MED & PEDS [address] [place] [address] Kassie Lauren MD [address] [place] [address] BMI 38.0-38.9,adult; Class 2 severe obesity due [...] documented as of this encounter Care Teams Die Repairer Stamping Relationship Specialty Start Date End Date Kassie Lauren MD [address] [place] [id number] PCP - General Internal Medicine 07/12/18 documented as of this encounter
== END 2025-06-15 16:45 | disposition home or self-care (01) ==
LOC: HO.HUSH 15:50
PROVIDERS: PCP Internal Medicine; Visit Provider Urology
DX: N40.0 Benign prostatic hyperplasia without lower urinary tract symptoms (principal); N52.01 Erectile dysfunction due to arterial insufficiency; R68.82 Decreased libido
CPT/HCPCS: 99214; G2211